=== PATIENT | female | born 1940 | race Caucasian/White ===

== ENCOUNTER 2023-05-15 14:19 | Observation (INO) | payer MEDICARE, SELFPAY ==
[2023-05-15] VITALS (10 sets, daily range): BP systolic 119–131; BP diastolic 43–63; PULSE 60–72; RESP 16–23; TEMP 35.8–36.3; O2SAT 97–100
--- NOTE | ~2023-05-15 | XR_ITS ---
EXAMINATION: XR chest 1V 05/15/2023 14:57 INDICATION: Hallucinations. PROCEDURE: AP view of the chest COMPARISON: No prior studies for comparison. FINDINGS: The lungs are clear. The cardiomediastinal silhouette is within normal limits. There are no pleural effusions. There is no pneumothorax suspected. IMPRESSION: 1: NO ACUTE CARDIOPULMONARY DISEASE. Reviewed, dictated and finalized at location L.
--- NOTE | ~2023-05-15 | CT_ITS ---
EXAMINATION: CT brain wo con DATE: 05/15/2023 14:48 INDICATION: Leaning to the right TECHNIQUE: Computed tomography (CT) of the head was performed without intravenous contrast. Sagittal and coronal reconstructions were performed. The mA was adjusted according to patient size. Iterative reconstruction technique was employed. The dose-length product was 605.33 mGy-cm. COMPARISON: None FINDINGS: No acute intracranial hemorrhage, acute infarction or abnormal extra axial fluid collection. There is mild scattered white matter hypoattenuation consistent with chronic small vessel ischemic disease. S ymmetric prominence of the sulci consistent with mild age-appropriate diffuse cerebral volume loss. Ventricles are normal and symmetric. No mass/mass effect. Changes of a left-sided and likely also rig ht-sided intraocular lens replacement. The orbits, paranasal sinuses and mastoid air cells are normal . IMPRESSION: 1. No acute intracranial process. 2. Age-related changes including mild diffuse volume loss and mild scattered white matter hypoattenua tion consistent with chronic small vessel ischemic disease. Reviewed, dictated and finalized at location A. IMPRESSION: 1. No acute intracranial process. 2. Age-related changes including mild diffuse volume loss and mild scattered wh ite matter hypoattenuation consistent with chronic small vessel ischemic diseas e.
--- NOTE | ~2023-05-15 | MR_ITS ---
EXAMINATION: MR brain/brain stem wo/w con DATE: 05/16/2023 13:04 INDICATION: Gait disturbance. Confusion. TECHNIQUE: Magnetic resonance imaging (MRI) of the brain and brainstem was performed without and with 15 mL MultiHance intravenous contrast. COMPARISON: Head CT 05/15/2023 FINDINGS: There are scattered areas of nonspecific increased T2-weighted signal intensity in the cere bral white matter, which is within normal limits for the patient's age. There is no intracranial hemo rrhage, acute infarction, or abnormal intracranial mass lesion. The ventricles are normal in size. Th e mastoid air cells are normal. There are mucous retention cysts in the maxillary sinuses. There are likely changes of ocular lens replacement surgeries. IMPRESSION: 1. Normal aging brain. Reviewed, dictated and finalized at location A. IMPRESSION: 1. Normal aging brain.
--- NOTE | 2023-05-15 14:33 | ECG_ITS ---
Measurements Intervals [place] Rate: 61 P: 42 VA: 174 QRS: -5 QRSD: 98 T: 0 QT: 404 QTc: 408 Interpretive Statements SINUS RHYTHM VOLTAGE CRITERIA FOR LVH [MEETS CRITERIA IN ONE OF: R(aVL), S(V1), R(V5), R(V5/V6)+S(V1)] NO PREVIOUS ECG AVAILABLE FOR COMPARISON Electronically Signed On 05-16-2023 11:34:59 CDT by Washington Echevarria M.D.
[2023-05-15 14:53] LABS: Basophils Percent Auto 0.5 % (0.2-1.2); Eosinophils Absolute Auto 0.1 K/mm3 (0-0.3); Eosinophils Percent Auto 1.3 % (0-4.4); Hematocrit 33.3 % (37.0-47.0); Hemoglobin 10.9 g/dL (12.0-15.0); Immature Granulocyte Absolute 0.02 K/mm3 (0.00-0.031); Immature Granulocyte Percent A 0.2 % (0-0.5); Lymphocytes Absolute Auto 1.05 K/mm3 (0.9-3.2); Lymphocytes Percent Auto 12.7 % (18.3-44.2); Mean Corpuscular HGB Conc 32.7 g/dl (32-36); Mean Corpuscular Hemoglobin 29.8 pg (26-34); Mean Platelet Volume 10.2 fl (7.4-10.4); Monocytes Absolute Auto 0.5 K/mm3 (0.1-0.6); Monocytes Percent Auto 6.3 % (2.6-8.5); Neutrophils Absolute Auto 6.5 K/mm3 (1.3-6.7); Platelet Count Result 266 k/mm3 (150-375); Red Blood Count 3.66 M/mm3 (4.2-5.4); Red Cell Distribution Width 13.2 % (11.5-14.5); White Blood Count 8.3 K/mm3 (4.5-10.0)
[2023-05-15 15:03] LABS: INR 1.1; Prothrombin Time 14.6 Seconds (11.1-14.7)
[2023-05-15 15:04] LABS: Partial Thromboplastin Time 29.3 SECONDS (22.3-36.8)
[2023-05-15 15:08] LABS: Alanine Aminotransferase 30 U/L (6-35); Albumin Level 3.9 g/dL (3.5-5.1); Alkaline Phosphatase 55 U/L (38-126); Anion Gap 9 mmol/L (8-16); Aspartate Amino Transferase 75 U/L (14-36); Bilirubin,Total 0.8 mg/dL (0.2-1.3); Blood Urea Nitrogen 40 mg/dL (7-17); Calcium 9.3 mg/dL (8.4-10.2); Carbon Dioxide 32 mmol/L (22-30); Chloride 97 mmol/L (98-107); Estimated CRCL calculation 29 ml/min; Estimated Glomerular Filt Rate 36; Glucose 82 mg/dL (65-110); Potassium 2.7 mmol/L (3.4-5.0); Sodium 138 mmol/L (137-145)
[2023-05-15 15:15] LABS: Troponin I 0.022 ng/mL (0.000-0.034)
--- NOTE | 2023-05-15 18:15 | ED.NEUROSD ---
HPI - Neuro Symptoms/Deficit General Chief Complaint: Neuro Symptoms/Deficit <Tran Torres PA-C - Last Filed: 05/15/23 19:19> Stated Complaint: concerned for stroke <Tran Torres PA-C - Last Filed: 05/15/23 19:19> Time Seen by Provider: 05/15/23 18:01 <Tran Torres PA-C - Last Filed: 05/15/23 19:19> Source: patient and family <Tran Torres PA-C - Last Filed: 05/15/23 19:19> Mode of arrival: wheelchair <Tran Torres PA-C - Last Filed: 05/15/23 19:19> Limitations: dementia <Tran Torres PA-C - Last Filed: 05/15/23 19:19> History of Present Illness HPI Narrative: This is a 82 year old female that presents to the ER for increased confusion. Noted over the last couple of days. Memory care facility reports she has been drooling and leaning to the right. No recent falls or injuries. Patient currently has no complaints. <Tran Torres PA-C - Last Filed: 05/15/23 19:19> Related Data Home Medications: Home Medications Medication Instructions Recorded Confirmed aspirin 81 mg tablet,delayed 81 mg PO DAILY 10/17/22 05/15/23 release (Adult Low Dose Aspirin) azilsartan medoxomil 40 1 tablet PO DAILY 10/17/22 05/15/23 mg-chlorthalidone 25 mg tablet (Edarbyclor) carvedilol 12.5 mg tablet 12.5 mg PO .COMPLEX 10/17/22 05/15/23 cinnamon bark 500 mg capsule 500 mg PO DAILY 10/17/22 05/15/23 cyclobenzaprine 5 mg tablet 5 mg PO QHS PRN Spasms 10/17/22 05/15/23 fenofibrate nanocrystallized 145 145 mg PO DAILY 10/17/22 05/15/23 mg tablet metformin 500 mg tablet 1,000 mg PO DAILY 10/17/22 05/15/23 uzaqlsumhuma-bwtzstfd-zottup tablet 1 tablet PO DAILY 10/17/22 05/15/23 nifedipine 30 mg tablet,extended 30 mg PO DAILY 10/17/22 05/15/23 release omega 1-yjm-roa-fish oil 500 mg 1 cap PO DAILY 10/17/22 05/15/23 (200mg-300mg)-1,000 mg capsule pravastatin 20 mg tablet 20 mg PO DAILY 10/17/22 05/15/23 calcium polycarbophil 625 mg 625 mg PO DAILY 05/15/23 05/15/23 tablet (Fiber-Lax) carvedilol 25 mg tablet 25 mg PO BID 05/15/23 05/15/23 ferrous sulfate 325 mg (65 mg 325 mg PO DAILY 05/15/23 05/15/23 iron) tablet (FeroSul) furosemide 20 mg tablet 20 mg PO DAILY 05/15/23 05/15/23 <Tran Torres PA-C - Last Filed: 05/15/23 19:19> Allergies/Adverse Reactions: Allergies Allergy/AdvReac Type Severity Reaction Status Date / Time Sulfa (Sulfonamide Allergy Mild Nausea Verified 10/16/22 10:30 Antibiotics) <Tran Torres PA-C - Last Filed: 05/15/23 19:19> Review of Systems Review of Systems: ROS unobtainable: Yes unobtainable due to medical condition <Tran Torres PA-C - Last Filed: 05/15/23 19:19> [facility] Past Medical History Medical History: Medical History (Updated 05/15/23 @ 19:19 by Tran Torres PA-C) Chronic kidney disease, stage 3b History of dementia History of hyperlipidemia <Tran Torres PA-C - Last Filed: 05/15/23 19:19> Social History Social History: Social History (Updated 10/16/22 @ 13:39 by Tony Wilson MD) Smoking status: Never smoker Alcohol intake: never Substance use: never Substance use type: does not use Lack of Transportation: No Lack of Food: Never True Current Housing: I Have Housing Concerned About Future Housing: No Difficulty Paying Gas/Electric Bills: No Difficulty Paying for Meds: No Currently Unemployed: No Education: Bachelor's Degree Difficulty w/ Childcare or Family Care: No Gender identity (if verbalized by the patient): Female Spiritual care concerns: No <Tran Torres PA-C - Last Filed: 05/15/23 19:19> Exam Narrative: GENERAL: Elderly, well-nourished, and in no acute distress. HEAD: Normocephalic, atraumatic. EYES: PERRLA and EOMI. ENT: Nares clear, no rhinorrhea or epistaxis. Mucous membranes moist. Oropharynx without tonsillar hypertrophy exudate or other lesions. Bilateral TMs pearly gutierrez non-bulging NECK: Supple. No adenopat
[2023-05-15 18:24] LABS: Glucose Point of Care 133 mg/dl (65-105)
[2023-05-15 18:38] LABS: Magnesium 1.8 mg/dL (1.6-2.3)
[2023-05-15] MEDS: POTASSIUM CHLORIDE INJ 40 MEQ in SODIUM CHLORIDE 0.9% IV 500 ML 130 MEQ IVPB (18:51)
[2023-05-15 18:59] LABS: Appearance Urine Clear (Clear); Bacteria Urine None Seen /hpf; Bilirubin Urine Negative (Negative); Blood Urine Negative (Negative); Color Urine Yellow (Yellow); Glucose Urine UA Negative (Negative); Ketones Urine Negative (Negative); Leukocyte Esterase Ur 2+ LEU/UL (Negative); Nitrate Urine Negative (Negative); Protein Urine Negative (Negative); RBC Urine 0-2 /hpf (0-2); Specific Grav Ur 1.011 (1.001-1.035); Squamous Epithelial Cell Urine None seen /hpf (Few); Urobilinogen Urine 0.2 mg/dL (<2.0); pH Urine 5.5 (5.0-9.0)
[2023-05-15 19:12] LABS: Add Urine Microscopic? YES
--- NOTE | 2023-05-15 20:05 | PM.IMHP ---
H&P: HPI History of Present Illness Date/Time: 05/15/23 20:05 Chief Complaint: Gait disturbance Narrative: This is an 82-year-old female with past medical history significant for hypertension, congestive heart failure, type diabetes mellitus, dyslipidemia, chronic kidney disease, patient resides at assisted living facility. Patient was brought to the emergency room for evaluation after she was noted to be Yamini to the right side, facial asymmetry and drooling and confusion and sundowning. Patient was able to give some history. But most of the history was obtained from family member who was at bedside. Preliminary workup was significant for urinalysis with WBCs present. Patient has been started on antibiotics. At the time of my visit patient had seemed to resolved some of her deficit. Patient has been admitted for further evaluation management and treatment. EXAMINATION: CT brain wo con DATE: 05/15/2023 14:48 INDICATION: Leaning to the right TECHNIQUE: Computed tomography (CT) of the head was performed without intravenous contrast. Sagittal and coronal reconstructions were performed. The mA was adjusted according to patient size. Iterative reconstruction technique was employed. The dose-length product was 605.33 mGy-cm. COMPARISON: None FINDINGS: No acute intracranial hemorrhage, acute infarction or abnormal extra axial fluid collection. There is mild scattered white matter hypoattenuation consistent with chronic small vessel ischemic disease. Symmetric prominence of the sulci consistent with mild age-appropriate diffuse cerebral volume loss.? Ventricles are normal and symmetric. No mass/mass effect. Changes of a left-sided and likely also right-sided intraocular lens replacement. The orbits, paranasal sinuses and mastoid air cells are normal. IMPRESSION: 1. No acute intracranial process. 2. Age-related changes including mild diffuse volume loss and mild scattered white matter hypoattenuation consistent with chronic small vessel ischemic disease. EXAMINATION: XR chest 1V 05/15/2023 14:57 INDICATION: Hallucinations. PROCEDURE:? AP view of the chest COMPARISON: No prior studies for comparison. FINDINGS: The lungs are clear.? The cardiomediastinal silhouette is within normal limits.? There are no pleural effusions.? There is no pneumothorax suspected.? IMPRESSION: 1:? NO ACUTE CARDIOPULMONARY DISEASE. Review of Systems Review of Systems: ROS unobtainable: Yes unobtainable due to mental status PMFSH Past Medical History Medical History (Updated 05/16/23 @ 03:00 by Estrella Loja MD) Chronic kidney disease, stage 3b History of dementia History of hyperlipidemia Social History Social History (Updated 10/16/22 @ 13:39 by Tony Wilson MD) Smoking status: Never smoker Alcohol intake: never Substance use: never Substance use type: does not use Lack of Transportation: No Lack of Food: Never True Current Housing: I Have Housing Concerned About Future Housing: No Difficulty Paying Gas/Electric Bills: No Difficulty Paying for Meds: No Currently Unemployed: No Education: Bachelor's Degree Difficulty w/ Childcare or Family Care: No Gender identity (if verbalized by the patient): Female Spiritual care concerns: No Meds Home Medications and Allergies Home Medications Medication Instructions Recorded Confirmed Type aspirin 81 mg tablet,delayed 81 mg PO DAILY 10/17/22 05/15/23 History release (Adult Low Dose Aspirin) azilsartan medoxomil 40 1 tablet PO DAILY 10/17/22 05/15/23 History mg-chlorthalidone 25 mg tablet (Edarbyclor) carvedilol 12.5 mg tablet 12.5 mg PO .COMPLEX 10/17/22 05/15/23 History cinnamon bark 500 mg capsule 500 mg PO DAILY 10/17/22 05/15/23 History cyclobenzaprine 5 mg tablet 5 mg PO QHS PRN Spasms 10/17/22 05/15/23 History fenofibrate nanocrystallized 145 145 mg PO DAILY 10/17/22 05/15/23 History mg tablet metformin 500 mg ta
--- NOTE | 2023-05-15 20:10 | ADMGEN ---
This patient, Brittani Garrett, was admitted to [facility] Surg Room 332-02. Patient/family oriented to hospital policies and general routines including ID bracelet, bed and alarms, visiting hours, pain management, procedures, bathroom and other care routines, personal items, smoking policy, room service/diet, and visiting hours. Information on how to activate the Rapid Response Team has been discussed. Patient/Family are encouraged to report perceived risks to care and to ask questions if they do not understand what they are told or what they should do.
[2023-05-16] VITALS (11 sets, daily range): BP systolic 110–124; BP diastolic 43–86; PULSE 59–70; RESP 16–19; TEMP 35.8–36.6; O2SAT 96–98
[2023-05-16 06:49] LABS: Anion Gap 4 mmol/L (8-16); Blood Urea Nitrogen 33 mg/dL (7-17); Calcium 8.7 mg/dL (8.4-10.2); Carbon Dioxide 33 mmol/L (22-30); Chloride 102 mmol/L (98-107); Estimated CRCL calculation 32 ml/min; Estimated Glomerular Filt Rate 43; Glucose 88 mg/dL (65-110); Sodium 139 mmol/L (137-145)
[2023-05-16] MEDS: NIFEdipine 30 MG TAB.ER.24 PO (08:30)
[2023-05-16] MEDS: OMEGA 3 POLYUNSAT FATTY ACIDS 1 GM CAP PO (08:30)
[2023-05-16] MEDS: FERROUS SULFATE 325 MG TABLET DR BY MOUTH (08:30)
[2023-05-16] MEDS: carvediloL 25 MG TABLET PO ×2 (08:30→20:48)
[2023-05-16] MEDS: PRAVASTATIN SODIUM 20 MG TABLET PO (08:30)
[2023-05-16] MEDS: OPTI-GEN TAB 1 TABLET PO (08:30)
[2023-05-16] MEDS: FENOFIBRATE NANOCRYSTALLIZED 145 MG TABLET PO (08:31)
[2023-05-16] MEDS: ASPIRIN 81 MG ENTERIC TABLET PO (08:31)
[2023-05-16] MEDS: calcium polycarbophiL 625 MG TABLET PO (08:31)
[2023-05-16] MEDS: POTASSIUM CHLORIDE 20 MEQ PACKET (FOR LIQUID) 40 MEQ PO (09:16)
--- NOTE | 2023-05-16 11:49 | WPDNEURCNPN ---
Assessment and Plan Assessment and plan (1) Chronic kidney disease, stage 3b: Code(s): N18.32 - Chronic kidney disease, stage 3b Status: Acute (2) Altered mental status: Qualifiers: Altered mental status type: unspecified Qualified Code(s): R41.82 - Altered mental status, unspecified Code(s): R41.82 - Altered mental status, unspecified Status: Acute Plan 1 ongoing dementia with recent change in the mental status, could be related to the chronic renal disease at this stage exam is unchanged from the previous evaluations once the dialysis is done will obtain the EEG if necessary Consult date: 05/16/23 HPI: Brittani Garrett is a 82 year old female Admitted to the hospital through the emergency room for the complaints of increasing confusion of more than 48 hours duration in addition to the complaints of leaning to the right side but with no history of falls, has ongoing history of taking aspirin 81 mg daily, carvedilol 12.5 mg daily cyclobenzaprine 5 mg HS on p.r.n. basis metformin 1000 mg daily nifedipine 30 mg daily pravastatin 20 mg daily, noted Maria Elena allergic to sulfa, carries the diagnosis of chronic renal disease stage IIIB, dementia, never smoked never alcohol intake , initial exam in the emergency room was nonfocal, vital signs were normal, considering the increasing confusion CT scan of the head was done was negative for the bleed, EKG without atrial fibrillation general blood workup was without leukocytosis but potassium was 2.7 PMFSH Past Medical History Medical History (Updated 05/16/23 @ 03:00 by Estrella Loja MD) Chronic kidney disease, stage 3b History of dementia History of hyperlipidemia Social History Social History (Updated 10/16/22 @ 13:39 by Tony Wilson MD) Smoking status: Never smoker Alcohol intake: never Substance use: never Substance use type: does not use Lack of Transportation: No Lack of Food: Never True Current Housing: I Have Housing Concerned About Future Housing: No Difficulty Paying Gas/Electric Bills: No Difficulty Paying for Meds: No Currently Unemployed: No Education: Bachelor's Degree Difficulty w/ Childcare or Family Care: No Gender identity (if verbalized by the patient): Female Spiritual care concerns: No Meds Home Medications and Allergies Home Medications Medication Instructions Recorded Confirmed Type aspirin 81 mg tablet,delayed 81 mg PO DAILY 10/17/22 05/15/23 History release (Adult Low Dose Aspirin) azilsartan medoxomil 40 1 tablet PO DAILY 10/17/22 05/15/23 History mg-chlorthalidone 25 mg tablet (Edarbyclor) carvedilol 12.5 mg tablet 12.5 mg PO .COMPLEX 10/17/22 05/15/23 History cinnamon bark 500 mg capsule 500 mg PO DAILY 10/17/22 05/15/23 History cyclobenzaprine 5 mg tablet 5 mg PO QHS PRN Spasms 10/17/22 05/15/23 History fenofibrate nanocrystallized 145 145 mg PO DAILY 10/17/22 05/15/23 History mg tablet metformin 500 mg tablet 1,000 mg PO DAILY 10/17/22 05/15/23 History ngkogsldyeqq-pzuuwyco-qhtztw tablet 1 tablet PO DAILY 10/17/22 05/15/23 History nifedipine 30 mg tablet,extended 30 mg PO DAILY 10/17/22 05/15/23 History release omega 1-tpb-yzg-fish oil 500 mg 1 cap PO DAILY 10/17/22 05/15/23 History (200mg-300mg)-1,000 mg capsule pravastatin 20 mg tablet 20 mg PO DAILY 10/17/22 05/15/23 History calcium polycarbophil 625 mg 625 mg PO DAILY 05/15/23 05/15/23 History tablet (Fiber-Lax) carvedilol 25 mg tablet 25 mg PO BID 05/15/23 05/15/23 History ferrous sulfate 325 mg (65 mg 325 mg PO DAILY 05/15/23 05/15/23 History iron) tablet (FeroSul) furosemide 20 mg tablet 20 mg PO DAILY 05/15/23 05/15/23 History Allergies Allergy/AdvReac Type Severity Reaction Status Date / Time Sulfa (Sulfonamide Allergy Mild Nausea Verified 10/16/22 10:30 Antibiotics) Vital Signs Vital Signs - 24 hr 05/15/23 14:29 05/15/23 17:51 05/15/23 17:52 Temperature 36.3 C L Pu
--- NOTE | 2023-05-16 12:13 | PM.IMPN ---
Progress Note: A&P Assessment and Plan (1) UTI (urinary tract infection): Code(s): N39.0 - Urinary tract infection, site not specified Status: Acute (2) Altered mental status: Qualifiers: Altered mental status type: unspecified Qualified Code(s): R41.82 - Altered mental status, unspecified Code(s): R41.82 - Altered mental status, unspecified Status: Acute (3) Chronic kidney disease, stage 3b: Code(s): N18.32 - Chronic kidney disease, stage 3b Status: Acute (4) Chronic arterial ischemic stroke: Code(s): I69.30 - Unspecified sequelae of cerebral infarction Status: Acute Subjective Date/time seen: 05/16/23 12:13 Interval history: No new issues Exam Narrative: Patient laying in bed Const: General: comfortable, no acute distress, well developed, alert, awake, confusion and average body habitus Nutritional Appearance: average body habitus Orientation/consciousness: oriented to person, oriented to place and confusion HENMT: Head: normal to inspection, normocephalic and atraumatic Ears: hearing grossly normal bilaterally Face/Nose/Sinus: normal facial exam Face and sinus: normal facial exam Eyes: General: appearance normal, both eyes and all related structures Pupils: Equal, round and reactive pupils present EOM: EOMs intact bilaterally Neck: Neck: full ROM, no lymphadenopathy and no JVD Thyroid: thyroid normal Lymphatic: no lymphadenopathy noted Resp: Effort & Inspection: normal respiratory effort and able to speak in complete sentences Auscultation: clear to auscultation bilaterally Cardio: Jugular venous distension: no JVD Rate: regular rate Rhythm: regular rhythm Heart sounds: S1 normal heart sound present and S2 normal heart sound present : General: Yes deferred Skin: Rashes: no rashes Wounds: no wounds Neuro: General: oriented to person, oriented to place, CN's II-XI intact bilaterally, confusion and Unable to assess gait Cranial nerves: Yes CN's II-XII intact bilaterally and Yes Equal, round and reactive pupils present Cognition (Neuro): abnormal cognition Speech: normal speech Gait exam (Neuro): Unable to assess gait Motor exam (neuro): 5/5 motor strength present throughout Extrem: General: normal to inspection, full ROM, no joint enlargement and no pedal edema Objective Data Vital Signs Vital Signs: Vital Signs - 24 hr 05/15/23 14:29 08/22/23 17:51 05/15/23 17:52 Temperature 97.4 F L Pulse Rate 72 67 66 Respiratory Rate 20 19 19 Blood Pressure 119/63 128/43 L Pulse Oximetry 98 98 99 Oxygen Delivery Room Air 05/15/23 18:00 05/15/23 18:01 05/15/23 18:28 Temperature Pulse Rate 65 64 61 Respiratory Rate 23 H 21 H 17 Blood Pressure 123/52 L 123/52 L Pulse Oximetry 100 97 99 Oxygen Delivery 05/15/23 18:30 05/15/23 18:31 05/15/23 18:54 Temperature Pulse Rate 62 61 60 Respiratory Rate 19 20 Blood Pressure 131/56 L Pulse Oximetry 99 99 Oxygen Delivery 05/15/23 20:45 05/16/23 04:00 05/16/23 06:00 Temperature 96.4 F L 96.5 F L Pulse Rate 65 59 L 62 Respiratory Rate 16 16 Blood Pressure 129/49 L 119/86 Pulse Oximetry 99 97 Oxygen Delivery 05/16/23 08:30 Temperature Pulse Rate 68 Respiratory Rate Blood Pressure Pulse Oximetry Oxygen Delivery Intake/Output Intake/Output: Intake & Output 05/13/23 05/14/23 05/15/23 05/16/23 23:59 23:59 23:59 23:59 Intake Total 50 418 Balance 50 418 Meds/Results Medications: Active Medications Generic Name Dose Route Start Last Admin Trade Name Freq PRN Reason Stop Dose Admin Aspirin 81 mg 05/16/23 09:00 05/16/23 08:31 Aspirin 81 Mg Enteric Tablet PO 81 mg DAILY MENG Administration Calcium Polycarbophil 625 mg 05/16/23 09:00 05/16/23 08:31 Calcium Polycarbophil 625 Mg Tablet PO 625 mg DAILY MENG Administration Carvedilol 25 mg 05/16/23 09:00 05/16/23 08:30 Carvedilol 25 Mg Table
[2023-05-17] VITALS (9 sets, daily range): BP systolic 117–129; BP diastolic 41–59; PULSE 56–71; RESP 16–20; TEMP 36.1–36.3; O2SAT 95–97
[2023-05-17 06:30] LABS: Basophils Percent Auto 0.8 % (0.2-1.2); Eosinophils Absolute Auto 0.2 K/mm3 (0-0.3); Eosinophils Percent Auto 4.2 % (0-4.4); Hematocrit 34.2 % (37.0-47.0); Hemoglobin 10.8 g/dL (12.0-15.0); Immature Granulocyte Absolute 0.02 K/mm3 (0.00-0.031); Immature Granulocyte Percent A 0.4 % (0-0.5); Lymphocytes Absolute Auto 1.07 K/mm3 (0.9-3.2); Lymphocytes Percent Auto 20.6 % (18.3-44.2); Mean Corpuscular HGB Conc 31.6 g/dl (32-36); Mean Corpuscular Hemoglobin 29.6 pg (26-34); Mean Corpuscular Volume 93.7 fl (80-100); Mean Platelet Volume 10.6 fl (7.4-10.4); Monocytes Absolute Auto 0.4 K/mm3 (0.1-0.6); Monocytes Percent Auto 7.3 % (2.6-8.5); Neutrophils Absolute Auto 3.5 K/mm3 (1.3-6.7); Neutrophils Percent Auto 66.7 % (45.5-73.1); Platelet Count Result 224 k/mm3 (150-375); Red Blood Count 3.65 M/mm3 (4.2-5.4); Red Cell Distribution Width 13.5 % (11.5-14.5); White Blood Count 5.2 K/mm3 (4.5-10.0)
[2023-05-17 06:42] LABS: Anion Gap 1 mmol/L (8-16); Blood Urea Nitrogen 25 mg/dL (7-17); Calcium 8.8 mg/dL (8.4-10.2); Carbon Dioxide 30 mmol/L (22-30); Chloride 102 mmol/L (98-107); Estimated CRCL calculation 34 ml/min; Estimated Glomerular Filt Rate 48; Glucose 99 mg/dL (65-110); Potassium 3.6 mmol/L (3.4-5.0); Sodium 133 mmol/L (137-145)
[2023-05-17] MEDS: ASPIRIN 81 MG ENTERIC TABLET PO (09:31)
[2023-05-17] MEDS: carvediloL 25 MG TABLET PO ×2 (09:31→22:03)
[2023-05-17] MEDS: PRAVASTATIN SODIUM 20 MG TABLET PO (09:31)
[2023-05-17] MEDS: FENOFIBRATE NANOCRYSTALLIZED 145 MG TABLET PO (09:31)
[2023-05-17] MEDS: calcium polycarbophiL 625 MG TABLET PO (09:31)
[2023-05-17] MEDS: OMEGA 3 POLYUNSAT FATTY ACIDS 1 GM CAP PO (09:31)
[2023-05-17] MEDS: CEFDINIR 300 MG CAPSULE PO ×2 (09:31→22:03)
[2023-05-17] MEDS: NIFEdipine 30 MG TAB.ER.24 PO (09:31)
[2023-05-17] MEDS: OPTI-GEN TAB 1 TABLET PO (09:31)
[2023-05-17] MEDS: POTASSIUM CHLORIDE 20 MEQ PACKET (FOR LIQUID) 40 MEQ PO (09:34)
--- NOTE | 2023-05-17 11:16 | PM.IMPN ---
Progress Note: A&P Assessment and Plan (1) UTI (urinary tract infection): Code(s): N39.0 - Urinary tract infection, site not specified Status: Acute Assessment and Plan: Admit to regular medical floor Started on antibiotics Await cultures Supportive care Continue to monitor (2) Altered mental status: Qualifiers: Altered mental status type: unspecified Qualified Code(s): R41.82 - Altered mental status, unspecified Code(s): R41.82 - Altered mental status, unspecified Status: Acute Assessment and Plan: Likely secondary to 1. MRI of the brain in the morning (3) Chronic kidney disease, stage 3b: Code(s): N18.32 - Chronic kidney disease, stage 3b Status: Acute Assessment and Plan: Creatinine is 1.4 No prior values for comparison Will hold NSAID and diuretics Daily BMP Continue to monitor (4) Chronic arterial ischemic stroke: Code(s): I69.30 - Unspecified sequelae of cerebral infarction Status: Acute Assessment and Plan: Unchanged Subjective Date/time seen: 05/17/23 11:16 Interval history: No complaints Exam Narrative: Patient laying in bed Const: General: comfortable, no acute distress, well developed, alert, awake, confusion and average body habitus Nutritional Appearance: average body habitus Orientation/consciousness: oriented to person, oriented to place and confusion HENMT: Head: normal to inspection, normocephalic and atraumatic Ears: hearing grossly normal bilaterally Face/Nose/Sinus: normal facial exam Face and sinus: normal facial exam Eyes: General: appearance normal, both eyes and all related structures Pupils: Equal, round and reactive pupils present EOM: EOMs intact bilaterally Neck: Neck: full ROM, no lymphadenopathy and no JVD Thyroid: thyroid normal Lymphatic: no lymphadenopathy noted Resp: Effort & Inspection: normal respiratory effort and able to speak in complete sentences Auscultation: clear to auscultation bilaterally Cardio: Jugular venous distension: no JVD Rate: regular rate Rhythm: regular rhythm Heart sounds: S1 normal heart sound present and S2 normal heart sound present : General: Yes deferred Skin: Rashes: no rashes Wounds: no wounds Neuro: General: oriented to person, oriented to place, CN's II-XI intact bilaterally, confusion and Unable to assess gait Cranial nerves: Yes CN's II-XII intact bilaterally and Yes Equal, round and reactive pupils present Cognition (Neuro): abnormal cognition Speech: normal speech Gait exam (Neuro): Unable to assess gait Motor exam (neuro): 5/5 motor strength present throughout Extrem: General: normal to inspection, full ROM, no joint enlargement and no pedal edema Objective Data Vital Signs Vital Signs: Vital Signs - 24 hr 05/16/23 14:00 05/16/23 12:00 05/16/23 16:00 Temperature 96.9 F L Pulse Rate 66 67 62 Respiratory Rate 19 Blood Pressure 110/43 L Pulse Oximetry 96 05/16/23 20:48 05/16/23 22:43 05/16/23 22:00 Temperature 97.8 F Pulse Rate 63 64 65 Respiratory Rate 18 Blood Pressure 124/55 L Pulse Oximetry 98 05/16/23 20:00 05/17/23 00:00 05/17/23 04:00 Temperature Pulse Rate 62 62 56 L Respiratory Rate Blood Pressure Pulse Oximetry 05/17/23 06:00 Temperature 97.4 F L Pulse Rate 71 Respiratory Rate 20 Blood Pressure 129/59 L Pulse Oximetry 95 Intake/Output Intake/Output: Intake & Output 05/14/23 05/15/23 05/16/23 05/17/23 23:59 23:59 23:59 23:59 Intake Total 50 880 118 Balance 50 880 118 Meds/Results Medications: Active Medications Generic Name Dose Route Start Last Admin Trade Name Freq PRN Reason Stop Dose Admin Aspirin 81 mg 05/16/23 09:00 05/17/23 09:31 Aspirin 81 Mg Enteric Tablet PO 81 mg DAILY MENG Administration Calcium Polycarbophil 625 mg 05/16/23 09:00 05/17/23 09:31 Calcium Polycarbophil 625 Mg Tablet PO 625 mg DAILY
[2023-05-17] MEDS: FERROUS SULFATE 325 MG TABLET DR BY MOUTH (12:35)
--- NOTE | 2023-05-17 17:09 | PM.DS ---
DS: Admitting Diagnosis Discharge Date 05/17/23 Admitting Diagnosis uti DS: Discharge Diagnosis Discharge Diagnosis (1) UTI (urinary tract infection): Code(s): N39.0 - Urinary tract infection, site not specified Status: Acute Assessment and Plan: Admit to regular medical floor Started on antibiotics Await cultures Supportive care Continue to monitor (2) Altered mental status: Qualifiers: Altered mental status type: unspecified Qualified Code(s): R41.82 - Altered mental status, unspecified Code(s): R41.82 - Altered mental status, unspecified Status: Acute Assessment and Plan: Likely secondary to 1. MRI of the brain in the morning (3) Chronic kidney disease, stage 3b: Code(s): N18.32 - Chronic kidney disease, stage 3b Status: Acute Assessment and Plan: Creatinine is 1.4 No prior values for comparison Will hold NSAID and diuretics Daily BMP Continue to monitor (4) Chronic arterial ischemic stroke: Code(s): I69.30 - Unspecified sequelae of cerebral infarction Status: Acute Assessment and Plan: Unchanged DS: Summary Hospital Course Hospital Course: admitted for ams, likely 2/2 uti - will be dc on omnicef back to baseline, ok for dc Time Spent with Patient Time attestation: Total time spent providing and/or coordinating discharge services: Exam Narrative: Patient laying in bed Const: General: comfortable, no acute distress, well developed, alert, awake, confusion and average body habitus Nutritional Appearance: average body habitus Orientation/consciousness: oriented to person, oriented to place and confusion HENMT: Head: normal to inspection, normocephalic and atraumatic Ears: hearing grossly normal bilaterally Face/Nose/Sinus: normal facial exam Face and sinus: normal facial exam Eyes: General: appearance normal, both eyes and all related structures Pupils: Equal, round and reactive pupils present EOM: EOMs intact bilaterally Neck: Neck: full ROM, no lymphadenopathy and no JVD Thyroid: thyroid normal Lymphatic: no lymphadenopathy noted Resp: Effort & Inspection: normal respiratory effort and able to speak in complete sentences Auscultation: clear to auscultation bilaterally Cardio: Jugular venous distension: no JVD Rate: regular rate Rhythm: regular rhythm Heart sounds: S1 normal heart sound present and S2 normal heart sound present : General: Yes deferred Skin: Rashes: no rashes Wounds: no wounds Neuro: General: oriented to person, oriented to place, CN's II-XI intact bilaterally, confusion and Unable to assess gait Cranial nerves: Yes CN's II-XII intact bilaterally and Yes Equal, round and reactive pupils present Cognition (Neuro): abnormal cognition Speech: normal speech Gait exam (Neuro): Unable to assess gait Motor exam (neuro): 5/5 motor strength present throughout Extrem: General: normal to inspection, full ROM, no joint enlargement and no pedal edema DS: Data Data Completed and Pending Labs on day of discharge: Labs from last 24 hours 05/17/23 06:08 WBC 5.2 RBC 3.65 L Hgb 10.8 L Hct 34.2 L MCV 93.7 MCH 29.6 MCHC 31.6 L RDW 13.5 Plt Count 224 MPV 10.6 H Immature Gran % (Auto) 0.4 Neut % (Auto) 66.7 Lymph % (Auto) 20.6 Rabun % (Auto) 7.3 Eos % (Auto) 4.2 Baso % (Auto) 0.8 Lymph # (Auto) 1.07 Rabun # (Auto) 0.4 Eos # (Auto) 0.2 Baso # (Auto) 0.0 Abs Immat Gran (auto) 0.02 Absolute Neuts (auto) 3.5 Absolute Nucleated RBC 0.0 Nucleated RBC % 0.0 Sodium 133 L Potassium 3.6 Chloride 102 Carbon Dioxide 30 Anion Gap 1 L BUN 25 H Creatinine 1.10 H Estim Creat Clear Calc 34 Estimated GFR 48 L Glucose 99 Calcium 8.8 Discharge Plan Discharge Attending physician on discharge: Hayden White Consulting providers: Luis Antonio Ruiz; Tran Torres Discharging Clinician: Hayden White Patient Disposition: Home, Self-
[2023-05-17] MEDS: CYCLOBENZAPRINE HCL 5 MG TABLET PO (22:03)
[2023-05-18 06:00] VITALS: BP 112/53; PULSE 61; RESP 16; TEMP 36.3; O2SAT 93
[2023-05-18 09:00] LABS: Potassium 3.8 mmol/L (3.4-5.0)
[2023-05-18] MEDS: calcium polycarbophiL 625 MG TABLET PO (09:07)
[2023-05-18] MEDS: OPTI-GEN TAB 1 TABLET PO (09:07)
[2023-05-18] MEDS: OMEGA 3 POLYUNSAT FATTY ACIDS 1 GM CAP PO (09:07)
[2023-05-18] MEDS: CEFDINIR 300 MG CAPSULE PO (09:07)
[2023-05-18 09:08] VITALS: PULSE 64
[2023-05-18] MEDS: carvediloL 25 MG TABLET PO (09:08)
[2023-05-18] MEDS: PRAVASTATIN SODIUM 20 MG TABLET PO (09:08)
[2023-05-18] MEDS: ASPIRIN 81 MG ENTERIC TABLET PO (09:08)
[2023-05-18] MEDS: NIFEdipine 30 MG TAB.ER.24 PO (09:08)
[2023-05-18] MEDS: FENOFIBRATE NANOCRYSTALLIZED 145 MG TABLET PO (09:08)
--- NOTE | 2023-05-18 11:35 | PM.DS ---
DS: Admitting Diagnosis Discharge Date May 18, 2023 Admitting Diagnosis Altered mental status, likely related to hypokalemia DS: Discharge Diagnosis Discharge Diagnosis (1) UTI (urinary tract infection): Code(s): N39.0 - Urinary tract infection, site not specified Status: Acute Assessment and Plan: Admit to regular medical floor Started on antibiotics Await cultures Supportive care Continue to monitor (2) Altered mental status: Qualifiers: Altered mental status type: unspecified Qualified Code(s): R41.82 - Altered mental status, unspecified Code(s): R41.82 - Altered mental status, unspecified Status: Acute Assessment and Plan: Likely secondary to 1. MRI of the brain in the morning (3) Chronic kidney disease, stage 3b: Code(s): N18.32 - Chronic kidney disease, stage 3b Status: Acute Assessment and Plan: Creatinine is 1.4 No prior values for comparison Will hold NSAID and diuretics Daily BMP Continue to monitor (4) Chronic arterial ischemic stroke: Code(s): I69.30 - Unspecified sequelae of cerebral infarction Status: Acute Assessment and Plan: Unchanged DS: Summary Hospital Course Hospital Course: Patient is a 82-year-old came with hypokalemia UTI altered mental status. After starting antibiotics and correction of electrolytes she is much improved. She is at her baseline and can be discharged Time Spent with Patient Time attestation: Total time spent providing and/or coordinating discharge services: Exam Narrative: Patient laying in bed Const: General: comfortable, no acute distress, well developed, alert, awake, confusion and average body habitus Nutritional Appearance: average body habitus Orientation/consciousness: oriented to person, oriented to place and confusion HENMT: Head: normal to inspection, normocephalic and atraumatic Ears: hearing grossly normal bilaterally Face/Nose/Sinus: normal facial exam Face and sinus: normal facial exam Eyes: General: appearance normal, both eyes and all related structures Pupils: Equal, round and reactive pupils present EOM: EOMs intact bilaterally Neck: Neck: full ROM, no lymphadenopathy and no JVD Thyroid: thyroid normal Lymphatic: no lymphadenopathy noted Resp: Effort & Inspection: normal respiratory effort and able to speak in complete sentences Auscultation: clear to auscultation bilaterally Cardio: Jugular venous distension: no JVD Rate: regular rate Rhythm: regular rhythm Heart sounds: S1 normal heart sound present and S2 normal heart sound present : General: Yes deferred Skin: Rashes: no rashes Wounds: no wounds Neuro: General: oriented to person, oriented to place, CN's II-XI intact bilaterally, confusion and Unable to assess gait Cranial nerves: Yes CN's II-XII intact bilaterally and Yes Equal, round and reactive pupils present Cognition (Neuro): abnormal cognition Speech: normal speech Gait exam (Neuro): Unable to assess gait Motor exam (neuro): 5/5 motor strength present throughout Extrem: General: normal to inspection, full ROM, no joint enlargement and no pedal edema DS: Data Data Completed and Pending Labs on day of discharge: Labs from last 24 hours 05/18/23 08:31 Potassium 3.8 Discharge Plan Discharge Attending physician on discharge: Hayden White Consulting providers: Luis Antonio Ruiz; Tran Torres Discharging Clinician: Hayden White Patient Disposition: Home, Self-Care Activity: as tolerated Diet: as tolerated Patient Instructions: Antibiotic Form, Hypokalemia (DC), Altered Mental Status (GEN) Stand Alone Forms: General Discharge Information Follow-up/Referrals: Melissa,Sam Gong MD [Primary Care Provider] - Discharge Medications: New cefdinir 300 mg capsule 300 mg PO Q12H Qty: 10 0RF Continued aspirin [Adult Low Dose Aspirin] 81 mg tablet,delayed release (/E
[2023-05-18] MEDS: FERROUS SULFATE 325 MG TABLET DR BY MOUTH (13:04)
== END 2023-05-18 14:35 ==
LOC: ANHED 19:19 → ANH3MEDSUR 05-16 12:20
PROVIDERS: Emergency Medicine; Admitting Provider Internal Medicine; Emergency Provider Physician Assistant; PCP Family Medicine; Visit Provider Chiropractor
DX: N39.0 Urinary tract infection, site not specified (principal); B95.1 Streptococcus, group B, as the cause of diseases classified elsewhere; R41.82 Altered mental status, unspecified; I13.0 Hypertensive heart and chronic kidney disease with heart failure and stage 1 through stage 4 chronic kidney disease, or unspecified chronic kidney disease; I50.9 Heart failure, unspecified; E11.22 Type 2 diabetes mellitus with diabetic chronic kidney disease; N18.32 Chronic kidney disease, stage 3b; I69.90 Unspecified sequelae of unspecified cerebrovascular disease; R29.3 Abnormal posture; E78.5 Hyperlipidemia, unspecified; E87.6 Hypokalemia; F03.90 Unspecified dementia, unspecified severity, without behavioral disturbance, psychotic disturbance, mood disturbance, and anxiety; R44.3 Hallucinations, unspecified; Z79.82 Long term (current) use of aspirin; Z79.84 Long term (current) use of oral hypoglycemic drugs; Z79.899 Other long term (current) drug therapy
CPT/HCPCS: 36415; 70450; 70553; 71045; 80048; 80053; 81001; 82948; 83735; 84132; 84484; 85025; 85610; 85730; 87086; 87088; 87147; 93005; 96365; 96366; 96375; 97161; 97165; 97530; 97535; 99285; A9270; A9577; G0378; J0696; J3480; J7040

== ENCOUNTER 2023-07-29 12:01 | Emergency (ER) | payer MEDICARE, SELFPAY ==
--- NOTE | ~2023-07-29 | CT_ITS ---
EXAMINATION: CT cervical spine wo con DATE: 07/29/2023 14:02 INDICATION: Neck pain TECHNIQUE: Computed tomography (CT) of the cervical spine was performed without intravenous contrast. The dose-length product (DLP) was 235.83 mGy-cm. Automated exposure control and iterative reconstruc tion technique were employed. COMPARISON: None FINDINGS: Bone alignment is normal. There is no fracture. There is mild loss of intervertebral disc s pace height at C4-5, C5-6, and C6-7. The odontoid process is intact. Small degenerative osteophytes p roject from the anterior endplates of multiple vertebral bodies. There is multilevel mild facet and u ncovertebral joint osteoarthritis. IMPRESSION: 1. Mild cervical spondylosis without acute findings. Reviewed, dictated and finalized at location F. SETTER OVERLOCK
--- NOTE | ~2023-07-29 | CT_ITS ---
EXAMINATION: CT brain wo con INDICATION: Headache COMPARISON: None TECHNIQUE: Standard unenhanced head CT. The dose-length product (DLP) was 605.33 mGy-cm. The mA was a djusted according to patient size. Iterative reconstruction technique was employed. FINDINGS: No acute intraparenchymal hemorrhage. No evidence of mass lesion. No evidence of acute infa rction. There is mild periventricular and subcortical hypodensity probably related to small vessel is chemic disease. There is mild prominence of the sulci and ventricles related to cerebral atrophy. Int racranial calcified cerebral atherosclerosis is noted. No extra-axial collections. No mass effect or midline shift. Changes in the globes are likely from ocular lens surgery. There is mild mucosal thick ening of the paranasal sinuses. IMPRESSION: 1. No acute intracranial abnormality. 2. Age related findings. Reviewed, dictated and finalized at location F. FORCE PLANNING ANALYST
--- NOTE | ~2023-07-29 | XR_ITS ---
EXAMINATION: XR shoulder RT min 2V INDICATION: Right shoulder pain TECHNIQUE: Three views of the right shoulder are submitted. COMPARISON: None FINDINGS: Normal alignment. No fracture. Glenohumeral and acromioclavicular joint spaces demonstrate moderate osteoarthritis. Soft tissues are unremarkable. IMPRESSION: 1. No acute osseous abnormality. Reviewed, dictated and finalized at location F. ERN CLEANER
[2023-07-29 12:02] VITALS: BP 161/88; PULSE 66; RESP 16; TEMP 36.6; O2SAT 96
[2023-07-29 12:14] VITALS: BP 138/78; PULSE 59; RESP 20; O2SAT 97
[2023-07-29 13:00] VITALS: BP 142/80; PULSE 63; RESP 18; TEMP 36.7; O2SAT 98
--- NOTE | 2023-07-29 13:14 | ED.FALL ---
HPI - Fall General Chief Complaint: Fall Stated Complaint: glf Time Seen by Provider: 07/29/23 12:53 Source: patient and family (daughter and daughter's fiance) History of Present Illness HPI Narrative: This is an 82 year old female who presents after falling twice at her senior care. Patient resides in a memory care unit. There are cameras and screen shots patient's daughter/daughter's fiance have show a fall occuring between 5:48am and 6:17am as well as another one at 11:08. No live action of patient falling, but screen shots of patient in bed followed by viewed on the ground. Patient told them she recalled falling twice but can not endorse this to me. Uses a walker at baseline and receives PT services at facility. Recent dental procedures this week but no new meds (not even using pain medications as prescribed as hadn't endorsed pain after). Vital signs documented by nursing however reported as 164/57, temp 97.2 Fahrenheit, heart rate 72, respiratory rate 14, SPO2 95%. Medications per nursing documentation are acetaminophen 500, adult 50+, alprazolam 0.5 , aspirin, carvedilol, cerovite, cinnamon Cranberry, fenofibrate, FeroSul, Fiber-Lax, fish oil, ibuprofen, metformin, potassium chloride, pravastatin, quetiapine, sodium chloride, trazodone, vitamin D3. Related Data Home Medications Medication Instructions Recorded Confirmed aspirin 81 mg tablet,delayed 81 mg PO DAILY 10/17/22 05/15/23 release (Adult Low Dose Aspirin) azilsartan medoxomil 40 1 tablet PO DAILY 10/17/22 05/15/23 mg-chlorthalidone 25 mg tablet (Edarbyclor) carvedilol 12.5 mg tablet 12.5 mg PO .COMPLEX 10/17/22 05/15/23 cinnamon bark 500 mg capsule 500 mg PO DAILY 10/17/22 05/15/23 cyclobenzaprine 5 mg tablet 5 mg PO QHS PRN Spasms 10/17/22 05/15/23 fenofibrate nanocrystallized 145 145 mg PO DAILY 10/17/22 05/15/23 mg tablet metformin 500 mg tablet 1,000 mg PO DAILY 10/17/22 05/15/23 mnlpykfauyhm-mtlydvpx-xhptpi tablet 1 tablet PO DAILY 10/17/22 05/15/23 nifedipine 30 mg tablet,extended 30 mg PO DAILY 10/17/22 05/15/23 release omega 7-mfi-lzm-fish oil 500 mg 1 cap PO DAILY 10/17/22 05/15/23 (200mg-300mg)-1,000 mg capsule pravastatin 20 mg tablet 20 mg PO DAILY 10/17/22 05/15/23 calcium polycarbophil 625 mg 625 mg PO DAILY 05/15/23 05/15/23 tablet (Fiber-Lax) carvedilol 25 mg tablet 25 mg PO BID 05/15/23 05/15/23 ferrous sulfate 325 mg (65 mg 325 mg PO DAILY 05/15/23 05/15/23 iron) tablet (FeroSul) furosemide 20 mg tablet 20 mg PO DAILY 05/15/23 05/15/23 Allergies Allergy/AdvReac Type Severity Reaction Status Date / Time Sulfa (Sulfonamide Allergy Mild Nausea Verified 07/29/23 12:07 Antibiotics) [facility] Past Medical History Medical History Alzheimer disease Anxiety disorder, unspecified Chronic kidney disease, stage 3b Constipation, unspecified Essential (primary) hypertension History of dementia History of hyperlipidemia Iron deficiency anemia Type 2 diabetes mellitus Unspecified combined systolic (congestive) and diastolic (congestive) heart failure Surgical History Surgical History History of root canal procedure Social History Social History Smoking status: Never smoker Alcohol intake: never Substance use: never Substance use type: does not use Lack of Transportation: No Lack of Food: Never True Current Housing: I Have Housing Concerned About Future Housing: No Difficulty Paying Gas/Electric Bills: No Difficulty Paying for Meds: No Currently Unemployed: No Education: Bachelor's Degree Difficulty w/ Childcare or Family Care: No Gender identity (if verbalized by the patient): Female Spiritual care concerns: No Exam Const: General: healthy appearing, no acute distress, alert and confusion; No diaphoretic or ill appearin
[2023-07-29 13:57] LABS: Basophils Percent Auto 0.7 % (0.2-1.2); Eosinophils Absolute Auto 0.1 K/mm3 (0-0.3); Eosinophils Percent Auto 1.4 % (0-4.4); Hematocrit 32.9 % (37.0-47.0); Hemoglobin 10.3 g/dL (12.0-15.0); Immature Granulocyte Absolute 0.02 K/mm3 (0.00-0.031); Immature Granulocyte Percent A 0.4 % (0-0.5); Lymphocytes Percent Auto 16.2 % (18.3-44.2); Mean Corpuscular HGB Conc 31.3 g/dl (32-36); Mean Corpuscular Hemoglobin 30.4 pg (26-34); Mean Corpuscular Volume 97.1 fl (80-100); Mean Platelet Volume 10.5 fl (7.4-10.4); Monocytes Absolute Auto 0.4 K/mm3 (0.1-0.6); Monocytes Percent Auto 7.7 % (2.6-8.5); Neutrophils Absolute Auto 4.1 K/mm3 (1.3-6.7); Neutrophils Percent Auto 73.6 % (45.5-73.1); Platelet Count Result 195 k/mm3 (150-375); Red Blood Count 3.39 M/mm3 (4.2-5.4); White Blood Count 5.6 K/mm3 (4.5-10.0)
[2023-07-29 14:00] VITALS: BP 136/70; PULSE 58; RESP 18; TEMP 36.3; O2SAT 98
[2023-07-29 14:16] LABS: Alanine Aminotransferase 20 U/L (6-35); Albumin Level 3.4 g/dL (3.5-5.1); Alkaline Phosphatase 46 U/L (38-126); Anion Gap 4 mmol/L (8-16); Aspartate Amino Transferase 33 U/L (14-36); Bilirubin,Total 0.8 mg/dL (0.2-1.3); Blood Urea Nitrogen 16 mg/dL (7-17); Calcium 9.4 mg/dL (8.4-10.2); Carbon Dioxide 29 mmol/L (22-30); Chloride 104 mmol/L (98-107); Estimated Glomerular Filt Rate 53; Glucose 90 mg/dL (65-110); Potassium 3.3 mmol/L (3.4-5.0); Sodium 137 mmol/L (137-145)
[2023-07-29 14:52] LABS: Appearance Urine Clear (Clear); Bilirubin Urine Negative (Negative); Blood Urine Negative (Negative); Color Urine Yellow (Yellow); Glucose Urine UA Negative (Negative); Ketones Urine Negative (Negative); Leukocyte Esterase Ur Negative LEU/UL (Negative); Nitrate Urine Negative (Negative); Protein Urine Negative (Negative); Specific Grav Ur 1.013 (1.001-1.035)
[2023-07-29 14:57] LABS: Add Urine Microscopic? NO
[2023-07-29 15:00] VITALS: BP 136/70; PULSE 56; RESP 16; O2SAT 98
[2023-07-29] MEDS: POTASSIUM PHOS/SODIUM PHOS 250 MG TABLET PO (15:32)
== END 2023-07-29 16:29 ==
PROVIDERS: Emergency Provider Student in an Organized Health Care Education/Training Program; PCP Family Medicine
DX: Z04.3 Encounter for examination and observation following other accident (principal); G30.9 Alzheimer's disease, unspecified; F02.80 Dementia in other diseases classified elsewhere, unspecified severity, without behavioral disturbance, psychotic disturbance, mood disturbance, and anxiety; I12.9 Hypertensive chronic kidney disease with stage 1 through stage 4 chronic kidney disease, or unspecified chronic kidney disease; E11.22 Type 2 diabetes mellitus with diabetic chronic kidney disease; N18.32 Chronic kidney disease, stage 3b; E78.5 Hyperlipidemia, unspecified; W18.30XA Fall on same level, unspecified, initial encounter; Y92.89 Other specified places as the place of occurrence of the external cause
CPT/HCPCS: 36415; 70450; 72125; 73030; 80053; 81003; 85025; 99284; A9270

== ENCOUNTER 2023-09-03 11:10 | Emergency (ER) | payer MEDICARE, SELFPAY ==
[2023-09-03] VITALS (23 sets, daily range): BP systolic 142–192; BP diastolic 46–86; PULSE 65–88; RESP 12–23; TEMP 36.4; O2SAT 96–100
--- NOTE | ~2023-09-03 | CT_ITS ---
EXAMINATION: CT brain wo con DATE: 09/03/2023 11:55 INDICATION: Head injury. TECHNIQUE: Computed tomography (CT) of the head was performed without intravenous contrast. The mA wa s adjusted according to patient size. Iterative reconstruction technique was employed. The dose-lengt h product was 605.33 mGy-cm. COMPARISON: Head CT 07/29/2023 FINDINGS: There are scattered areas of low attenuation in the cerebral white matter, which is within normal limits for the patient's age. There is no intracranial hemorrhage, acute infarction, or abnorm al intracranial mass lesion. The ventricles are normal in size. There is mucosal thickening in the pa ranasal sinuses. There are likely changes of ocular lens replacement surgeries. There is a small righ t mastoid effusion. IMPRESSION: 1. Normal aging brain. Reviewed, dictated and finalized at location A. T SETTER IMPRESSION: 1. Normal aging brain.
[2023-09-03 12:12] LABS: Basophils Percent Auto 0.7 % (0.2-1.2); Eosinophils Absolute Auto 0.1 K/mm3 (0-0.3); Eosinophils Percent Auto 1.3 % (0-4.4); Hematocrit 35.2 % (37.0-47.0); Hemoglobin 10.8 g/dL (12.0-15.0); Immature Granulocyte Absolute 0.01 K/mm3 (0.00-0.031); Immature Granulocyte Percent A 0.2 % (0-0.5); Lymphocytes Percent Auto 11.2 % (18.3-44.2); Mean Corpuscular HGB Conc 30.7 g/dl (32-36); Mean Corpuscular Hemoglobin 29.8 pg (26-34); Mean Corpuscular Volume 97.2 fl (80-100); Mean Platelet Volume 10.3 fl (7.4-10.4); Monocytes Absolute Auto 0.4 K/mm3 (0.1-0.6); Monocytes Percent Auto 6.9 % (2.6-8.5); Neutrophils Absolute Auto 4.3 K/mm3 (1.3-6.7); Neutrophils Percent Auto 79.7 % (45.5-73.1); Platelet Count Result 219 k/mm3 (150-375); Red Blood Count 3.62 M/mm3 (4.2-5.4); Red Cell Distribution Width 14.3 % (11.5-14.5); White Blood Count 5.4 K/mm3 (4.5-10.0)
[2023-09-03 12:21] LABS: Alanine Aminotransferase 19 U/L (6-35); Albumin Level 3.6 g/dL (3.5-5.1); Alkaline Phosphatase 66 U/L (38-126); Anion Gap 4 mmol/L (8-16); Aspartate Amino Transferase 33 U/L (14-36); Bilirubin,Total 0.7 mg/dL (0.2-1.3); Blood Urea Nitrogen 17 mg/dL (7-17); Calcium 9.5 mg/dL (8.4-10.2); Carbon Dioxide 29 mmol/L (22-30); Chloride 106 mmol/L (98-107); Estimated CRCL calculation 41 ml/min; Estimated Glomerular Filt Rate 60; Glucose 97 mg/dL (65-110); Potassium 3.7 mmol/L (3.4-5.0); Sodium 139 mmol/L (137-145)
[2023-09-03 12:47] LABS: Appearance Urine Clear (Clear); Bacteria Urine None Seen /hpf; Bilirubin Urine Negative (Negative); Blood Urine Negative (Negative); Color Urine Yellow (Yellow); Glucose Urine UA Negative (Negative); Ketones Urine Negative (Negative); Leukocyte Esterase Ur 1+ LEU/UL (Negative); Nitrate Urine Negative (Negative); Non Pathogenic Casts 0-2; Protein Urine Negative (Negative); RBC Urine 0-2 /hpf (0-2); Specific Grav Ur 1.008 (1.001-1.035); Squamous Epithelial Cell Urine None seen /hpf (Few); pH Urine 7.5 (5.0-9.0)
[2023-09-03 13:05] LABS: Add Urine Microscopic? YES
--- NOTE | 2023-09-03 13:28 | ED.FALL ---
HPI - Fall General Chief Complaint: Fall Stated Complaint: fall Time Seen by Provider: 09/03/23 11:28 History of Present Illness HPI Narrative: Patient is an 82-year-old female who presents ER after having a fall at her senior living. Tripped and fell on the way to the bathroom. Struck the left side of her head. No LOC. She is on aspirin. Denies any fevers or chills or sweats. No urinary symptoms per report she does get frequent UTIs. denies any extremity pain. Related Data Home Medications Medication Instructions Recorded Confirmed aspirin 81 mg tablet,delayed 81 mg PO DAILY 10/17/22 05/15/23 release (Adult Low Dose Aspirin) azilsartan medoxomil 40 1 tablet PO DAILY 10/17/22 05/15/23 mg-chlorthalidone 25 mg tablet (Edarbyclor) carvedilol 12.5 mg tablet 12.5 mg PO .COMPLEX 10/17/22 05/15/23 cinnamon bark 500 mg capsule 500 mg PO DAILY 10/17/22 05/15/23 cyclobenzaprine 5 mg tablet 5 mg PO QHS PRN Spasms 10/17/22 05/15/23 fenofibrate nanocrystallized 145 145 mg PO DAILY 10/17/22 05/15/23 mg tablet metformin 500 mg tablet 1,000 mg PO DAILY 10/17/22 05/15/23 frgjhyjgiaoc-qtzwxwbv-ghfuio tablet 1 tablet PO DAILY 10/17/22 05/15/23 nifedipine 30 mg tablet,extended 30 mg PO DAILY 10/17/22 05/15/23 release omega 5-acq-ivf-fish oil 500 mg 1 cap PO DAILY 10/17/22 05/15/23 (200mg-300mg)-1,000 mg capsule pravastatin 20 mg tablet 20 mg PO DAILY 10/17/22 05/15/23 calcium polycarbophil 625 mg 625 mg PO DAILY 05/15/23 05/15/23 tablet (Fiber-Lax) carvedilol 25 mg tablet 25 mg PO BID 05/15/23 05/15/23 ferrous sulfate 325 mg (65 mg 325 mg PO DAILY 05/15/23 05/15/23 iron) tablet (FeroSul) furosemide 20 mg tablet 20 mg PO DAILY 05/15/23 05/15/23 Allergies Allergy/AdvReac Type Severity Reaction Status Date / Time Sulfa (Sulfonamide AdvReac Mild Nausea Verified 09/03/23 13:32 Antibiotics) Review of Systems Review of Systems: All systems reviewed & are unremarkable except as noted in HPI and below Constitutional: Constitutional: Reports no additional constitutional complaints ENT: Reports system reviewed and no additional complaints, except as documented Cardiovascular: Cardiovascular: Reports no additional cardiovascular complaints Respiratory: Respiratory: Reports no additional respiratory complaints Genitourinary: Genitourinary: Reports no additional female genitourinary complaints Neurologic: Denies headache(s), Denies focal weakness and Denies numbness PMFSH Past Medical History Medical History (Updated 09/03/23 @ 13:31 by Dann Wood MD) Alzheimer disease Anxiety disorder, unspecified Chronic kidney disease, stage 3b Constipation, unspecified Essential (primary) hypertension History of dementia History of hyperlipidemia Iron deficiency anemia Type 2 diabetes mellitus Unspecified combined systolic (congestive) and diastolic (congestive) heart failure Surgical History Surgical History History of root canal procedure Social History Social History Smoking status: Never smoker Alcohol intake: never Substance use: never Substance use type: does not use Lack of Transportation: No Lack of Food: Never True Current Housing: I Have Housing Concerned About Future Housing: No Difficulty Paying Gas/Electric Bills: No Difficulty Paying for Meds: No Currently Unemployed: No Education: Bachelor's Degree Difficulty w/ Childcare or Family Care: No Gender identity (if verbalized by the patient): Female Spiritual care concerns: No Exam Narrative: GENERAL: Well-appearing, well-nourished, and in no acute distress. HEAD: Normocephalic, atraumatic. EYES: PERRL and EOMI. ENT: Mucous membranes moist. CHEST: Clear to auscultation. No respiratory distress. HEART: Regular rate and rhythm. Normal peripheral pulses. ABDOMEN: Soft, nontender, nondist
[2023-09-03] MEDS: CEPHALEXIN 500 MG CAPSULE PO (13:37)
== END 2023-09-03 14:56 | disposition home or self-care (01) ==
PROVIDERS: Emergency Provider Emergency Medicine; PCP Family Medicine
DX: S09.90XA Unspecified injury of head, initial encounter (principal); N39.0 Urinary tract infection, site not specified; G30.9 Alzheimer's disease, unspecified; F02.80 Dementia in other diseases classified elsewhere, unspecified severity, without behavioral disturbance, psychotic disturbance, mood disturbance, and anxiety; E78.5 Hyperlipidemia, unspecified; I13.0 Hypertensive heart and chronic kidney disease with heart failure and stage 1 through stage 4 chronic kidney disease, or unspecified chronic kidney disease; E11.22 Type 2 diabetes mellitus with diabetic chronic kidney disease; N18.32 Chronic kidney disease, stage 3b; I50.40 Unspecified combined systolic (congestive) and diastolic (congestive) heart failure; Z79.82 Long term (current) use of aspirin; W01.0XXA Fall on same level from slipping, tripping and stumbling without subsequent striking against object, initial encounter; Y92.121 Bathroom in nursing home as the place of occurrence of the external cause
CPT/HCPCS: 36415; 70450; 80053; 81001; 85025; 87086; 99284; A9270

== ENCOUNTER 2023-09-14 10:14 | Emergency (ER) | payer MEDICARE, SELFPAY ==
[2023-09-14] VITALS (7 sets, daily range): BP systolic 150–186; BP diastolic 59–77; PULSE 58–87; RESP 16–22; TEMP 36.4; O2SAT 94–98
--- NOTE | ~2023-09-14 | CT_ITS ---
EXAMINATION: CT cervical spine wo con DATE: 09/14/2023 11:45 INDICATION: Head injury TECHNIQUE: Computed tomography (CT) of the cervical spine was performed without intravenous contrast. The dose-length product (DLP) was 219.53 mGy-cm. Automated exposure control and iterative reconstruc tion technique were employed. COMPARISON: 07/29/2023 FINDINGS: Bone alignment is normal. There is no fracture. There is mild loss of intervertebral disc s pace height at C4-5, C5-6, and C6-7. The vertebral body heights are maintained. The odontoid process is intact. The prevertebral soft tissues are normal. Small degenerative osteophytes project from the anterior endplates of multiple vertebral bodies. There is multilevel mild facet and uncovertebral khris nt osteoarthritis. IMPRESSION: 1. Mild cervical spondylosis without acute findings or significant interval change. Reviewed, dictated and finalized at location B. ATOR AND TRUCK DRIVER IMPRESSION: 1. Mild cervical spondylosis without acute findings or significant interval adia nge.
--- NOTE | ~2023-09-14 | XR_ITS ---
EXAMINATION: XR shoulder RT min 2V INDICATION: Right shoulder pain TECHNIQUE: Three views of the right shoulder are submitted. COMPARISON: None FINDINGS: Normal alignment. No fracture. Glenohumeral and acromioclavicular joint spaces are normal. Soft tissues are unremarkable. IMPRESSION: 1. No acute osseous abnormality. Reviewed, dictated and finalized at location B. LE LOOM TENDER
--- NOTE | ~2023-09-14 | XR_ITS ---
EXAMINATION: XR chest 1V INDICATION: Chest pain after fall TECHNIQUE: AP view of the chest is obtained. COMPARISON: 05/15/2023 FINDINGS: The lungs are free of acute opacities. Cardiomegaly is noted. No pleural effusion or pneumo thorax. IMPRESSION: 1. Cardiomegaly. Reviewed, dictated and finalized at location B. STRIAL HYGIENE ENGINEER IMPRESSION: 1. Cardiomegaly.
--- NOTE | ~2023-09-14 | XR_ITS ---
EXAMINATION: XR hip RT 2V w AP pelvis INDICATION: Pain after fall TECHNIQUE: AP view the pelvis and two views of the right hip are obtained. COMPARISON: None available FINDINGS: Bone alignment is normal. There is no fracture. The femoral heads are well-seated in their acetabula. There appears to be a small bone island of the right ilium. IMPRESSION: 1. No acute osseous abnormality. Reviewed, dictated and finalized at location B. S REPRESENTATIVE MEATS
--- NOTE | ~2023-09-14 | CT_ITS ---
EXAMINATION: CT brain wo con INDICATION: Head injury COMPARISON: 09/03/2023 TECHNIQUE: Standard unenhanced head CT. The dose-length product (DLP) was 605.33 mGy-cm. The mA was a djusted according to patient size. Iterative reconstruction technique was employed. FINDINGS: No acute intraparenchymal hemorrhage. No evidence of mass lesion. No evidence of acute infa rction. There is mild periventricular and subcortical hypodensity probably related to small vessel is chemic disease. There is mild prominence of the sulci and ventricles related to cerebral atrophy. Int racranial calcified cerebral atherosclerosis is noted. No extra-axial collections. No mass effect or midline shift. Changes in the globes are likely from ocular lens surgery. There is mild mucosal thick ening of the paranasal sinuses. IMPRESSION: 1. No acute intracranial abnormality. 2. Age related findings. Reviewed, dictated and finalized at location B. ISION ASSEMBLER
--- NOTE | 2023-09-14 11:01 | ED.WEAKNESS ---
HPI - Weakness General Chief complaint: Weakness Stated complaint: Fall x2 Time Seen by Provider: 09/14/23 10:39 Source: patient and family (daughter) Limitations: dementia History of Present Illness HPI Narrative: Patient presents from memory care facility after sustaining a fall yesterday and this morning by report. Family stated patient was off afterwards, seemingly not using their right arm as much. Daughter concerned patient's dementia is getting worse with language declining in the past month. Difficulty swallowing pills. She had a dental appointment yesterday. Patient denies chest pain, diarrhea, fevers. At baseline, she is alert and oriented to herself. Recently had a UTI. Related Data Home Medications Medication Instructions Recorded Confirmed carvedilol 12.5 mg tablet 12.5 mg PO .COMPLEX 10/17/22 09/12/23 cinnamon bark 500 mg capsule 500 mg PO DAILY 10/17/22 09/12/23 cyclobenzaprine 5 mg tablet 5 mg PO QHS PRN Spasms 10/17/22 09/12/23 fenofibrate nanocrystallized 145 145 mg PO DAILY 10/17/22 09/12/23 mg tablet metformin 500 mg tablet 1,000 mg PO DAILY 10/17/22 09/12/23 jcbovitbicsh-erwsqocn-tgvwqu tablet 1 tablet PO DAILY 10/17/22 09/12/23 omega 9-lnz-bie-fish oil 500 mg 1 cap PO DAILY 10/17/22 09/12/23 (200mg-300mg)-1,000 mg capsule pravastatin 20 mg tablet 20 mg PO DAILY 10/17/22 09/12/23 furosemide 20 mg tablet 20 mg PO DAILY 05/15/23 09/12/23 alprazolam 0.5 mg tablet 0.5 mg PO QHS PRN 09/10/23 09/12/23 nitrofurantoin 100 mg capsule 100 mg PO Q12H 09/10/23 09/12/23 potassium chloride 10 mEq 10 meq PO DAILY 09/10/23 09/12/23 capsule,extended release quetiapine 25 mg tablet 25 mg PO QHS 09/10/23 09/12/23 trazodone 100 mg tablet 100 mg PO QHS PRN 09/10/23 09/12/23 Allergies Allergy/AdvReac Type Severity Reaction Status Date / Time Sulfa (Sulfonamide AdvReac Mild Nausea Verified 09/14/23 10:32 Antibiotics) PMFSH Past Medical History Medical History Alzheimer disease Anxiety disorder, unspecified Chronic kidney disease, stage 3b Constipation, unspecified Essential (primary) hypertension History of dementia History of hyperlipidemia Iron deficiency anemia Type 2 diabetes mellitus Unspecified combined systolic (congestive) and diastolic (congestive) heart failure Surgical History Surgical History History of root canal procedure Social History Social History (Updated 09/23/23 @ 00:16 by Paty Mcclellan MD) Social History: Advanced Directive CPR per facility documentation; DPOA daughter Smoking status: Never smoker Alcohol intake: never Substance use: never Substance use type: does not use Lack of Transportation: No Lack of Food: Never True Current Housing: I Have Housing Concerned About Future Housing: No Difficulty Paying Gas/Electric Bills: No Difficulty Paying for Meds: No Currently Unemployed: No Education: Bachelor's Degree Difficulty w/ Childcare or Family Care: No Additional living arrangements comments: M[facility] Hoffman of [facility] since 04/15/23 Gender identity (if verbalized by the patient): Female Spiritual care concerns: No Exam Narrative: GENERAL: Well-appearing, well-nourished, and in no acute distress. HEAD: Very small barely palpable hematoma over posterior skull though with area of ecchymosis EYES: Non injected, non icteric ENT: Nares clear, no rhinorrhea or epistaxis. NECK: Supple. CHEST: Clear to auscultation. No respiratory distress. HEART: Regular rate and rhythm. . ABDOMEN: Soft, nondistended. EXTREMITIES: Passive range of motion without restriction. NO bony defromities or crepitus. Patient is made to reach for Ruffles chips and shows movement in UEs though left greater than right. No edema. Pelvis stable to compression and w/o tenderness. Small area of ecchymosis on right hip. SKIN: Warm, dry. Small area o
--- NOTE | 2023-09-14 11:27 | ECG_ITS ---
Measurements Intervals [place] Rate: 75 P: 47 AK: 131 QRS: 9 QRSD: 86 T: 15 QT: 369 QTc: 413 Interpretive Statements SINUS RHYTHM MINOR NONSPECIFIC ST SEGMENT ABNORMALITY BORDERLINE ECG COMPARED TO ECG 05/15/2023 18:29:40 NO SIGNIFICANT CHANGES Electronically Signed On 09-14-2023 15:25:57 HEAD SULFIDE OPERATOR by Hayden Irwin M.D.
[2023-09-14] MEDS: SODIUM CHLORIDE 0.9% IV 1,000 ML 999 ML IV CONT (12:10)
[2023-09-14 12:35] LABS: Appearance Urine Clear (Clear); Bacteria Urine None Seen /hpf; Bilirubin Urine Negative (Negative); Blood Urine Negative (Negative); Color Urine Yellow (Yellow); Glucose Urine UA Negative (Negative); Ketones Urine Negative (Negative); Leukocyte Esterase Ur Negative LEU/UL (Negative); Nitrate Urine Negative (Negative); Non Pathogenic Casts 0-2; Protein Urine Trace mg/dL (Negative); RBC Urine 0-2 /hpf (0-2); Specific Grav Ur 1.017 (1.001-1.035); Squamous Epithelial Cell Urine Occasional /hpf (Few); WBC Urine 0-5 /hpf
[2023-09-14 12:40] LABS: Basophils Absolute Auto 0.1 K/mm3 (0.0-0.1); Basophils Percent Auto 0.7 % (0.2-1.2); Eosinophils Absolute Auto 0.1 K/mm3 (0-0.3); Eosinophils Percent Auto 0.9 % (0-4.4); Hematocrit 38.7 % (37.0-47.0); Hemoglobin 11.8 g/dL (12.0-15.0); Immature Granulocyte Absolute 0.01 K/mm3 (0.00-0.031); Immature Granulocyte Percent A 0.1 % (0-0.5); Lymphocytes Absolute Auto 0.95 K/mm3 (0.9-3.2); Lymphocytes Percent Auto 14.2 % (18.3-44.2); Mean Corpuscular HGB Conc 30.5 g/dl (32-36); Mean Corpuscular Hemoglobin 29.7 pg (26-34); Mean Corpuscular Volume 97.5 fl (80-100); Mean Platelet Volume 10.5 fl (7.4-10.4); Monocytes Absolute Auto 0.4 K/mm3 (0.1-0.6); Monocytes Percent Auto 6.4 % (2.6-8.5); Neutrophils Absolute Auto 5.2 K/mm3 (1.3-6.7); Neutrophils Percent Auto 77.7 % (45.5-73.1); Platelet Count Result 260 k/mm3 (150-375); Red Blood Count 3.97 M/mm3 (4.2-5.4); White Blood Count 6.7 K/mm3 (4.5-10.0)
[2023-09-14 12:41] LABS: Alanine Aminotransferase 32 U/L (6-35); Alkaline Phosphatase 60 U/L (38-126); Anion Gap 9 mmol/L (8-16); Aspartate Amino Transferase 64 U/L (14-36); Blood Urea Nitrogen 18 mg/dL (7-17); Calcium 10.2 mg/dL (8.4-10.2); Carbon Dioxide 29 mmol/L (22-30); Chloride 103 mmol/L (98-107); Creatine Kinase 502 U/L (30-135); Estimated CRCL calculation 41 ml/min; Estimated Glomerular Filt Rate 60; Glucose 98 mg/dL (65-110); Potassium 3.5 mmol/L (3.4-5.0); Sodium 141 mmol/L (137-145)
[2023-09-14 12:42] LABS: Partial Thromboplastin Time 28.8 SECONDS (22.3-36.8); Prothrombin Time 13.9 Seconds (11.1-14.7)
[2023-09-14 12:53] LABS: Add Urine Microscopic? YES
== END 2023-09-14 14:30 ==
PROVIDERS: Emergency Provider Student in an Organized Health Care Education/Training Program; PCP Family Medicine
DX: Z04.3 Encounter for examination and observation following other accident (principal); M47.812 Spondylosis without myelopathy or radiculopathy, cervical region; R74.01 Elevation of levels of liver transaminase levels; I51.7 Cardiomegaly; G30.9 Alzheimer's disease, unspecified; F02.80 Dementia in other diseases classified elsewhere, unspecified severity, without behavioral disturbance, psychotic disturbance, mood disturbance, and anxiety; I13.0 Hypertensive heart and chronic kidney disease with heart failure and stage 1 through stage 4 chronic kidney disease, or unspecified chronic kidney disease; I50.40 Unspecified combined systolic (congestive) and diastolic (congestive) heart failure; E11.22 Type 2 diabetes mellitus with diabetic chronic kidney disease; N18.32 Chronic kidney disease, stage 3b; E78.5 Hyperlipidemia, unspecified; D50.9 Iron deficiency anemia, unspecified; Z79.84 Long term (current) use of oral hypoglycemic drugs; W19.XXXA Unspecified fall, initial encounter
CPT/HCPCS: 36415; 70450; 71045; 72125; 73030; 73502; 80053; 81001; 82550; 85025; 85610; 85730; 93005; 96360; 99284; J7030

== ENCOUNTER 2023-09-26 18:26 | Emergency (ER) | payer MEDICARE, SELFPAY ==
--- NOTE | ~2023-09-26 | CT_ITS ---
EXAMINATION: CT brain wo con DATE: 09/26/2023 19:04 INDICATION: Head injury. TECHNIQUE: Computed tomography (CT) of the head was performed without intravenous contrast. The mA wa s adjusted according to patient size. Iterative reconstruction technique was employed. The dose-lengt h product was 605.33 mGy-cm. COMPARISON: Head CT 09/14/2023 FINDINGS: There are scattered areas of low attenuation in the cerebral white matter, which is within normal limits for the patient's age. There is no intracranial hemorrhage, acute infarction, or abnorm al intracranial mass lesion. The ventricles are normal in size. There are likely changes of ocular le ns replacement surgeries. There is mild mucosal thickening in the paranasal sinuses. The mastoid air cells are normal. IMPRESSION: 1. Normal aging brain. Reviewed, dictated and finalized at location E. CIATE STORE MANAGER IMPRESSION: 1. Normal aging brain.
--- NOTE | ~2023-09-26 | CT_ITS ---
EXAMINATION: CT cervical spine wo con DATE: 09/26/2023 19:05 INDICATION: Head injury. TECHNIQUE: Computed tomography (CT) of the cervical spine was performed without intravenous contrast. Automated exposure control and iterative reconstruction technique were employed. The dose-length pro duct was 310.57 mGy-cm. COMPARISON: CT cervical spine 09/14/2023 FINDINGS: Bone alignment is normal. Vertebral body heights are normal. There is moderately decreased disc height at C4-C5 and C5-C6 and severely decreased disc height at C6-C7. The following disc levels are specifically discussed: C2-C3: There is no uncovertebral joint osteoarthritis. There is mild left facet joint osteoarthritis. There is no neural foraminal stenosis. There is no central canal stenosis. C3-C4: There is no uncovertebral joint osteoarthritis. There is mild bilateral facet joint osteoarthr itis. There is no neural foraminal stenosis. There is no central canal stenosis. C4-C5: There is severe bilateral uncovertebral joint osteoarthritis. There is mild bilateral facet ranjana int osteoarthritis. There is mild bilateral neural foraminal stenosis. There is mild central canal st enosis. C5-C6: There is severe bilateral uncovertebral joint osteoarthritis. There is mild bilateral facet ranjana int osteoarthritis. There is mild bilateral neural foraminal stenosis. There is mild central canal st enosis. C6-C7: There is moderate right and severe left uncovertebral joint osteoarthritis. There is moderate right and mild left facet joint osteoarthritis. There is mild bilateral neural foraminal stenosis. Th ere is mild central canal stenosis. C7-T1: There is no uncovertebral joint osteoarthritis. There is moderate bilateral facet joint osteoa rthritis. There is mild left neural foraminal stenosis. There is no central canal stenosis. IMPRESSION: 1. No fracture. 2. Severe cervical spondylosis. Reviewed, dictated and finalized at location E. UAL ASSISTANT FOR ADVERTISERS
[2023-09-26 18:23] VITALS: BP 170/68; PULSE 68; RESP 16; TEMP 37; O2SAT 98
[2023-09-26 19:31] VITALS: BP 143/76; PULSE 65; RESP 16; O2SAT 100
--- NOTE | 2023-09-26 19:31 | ED.FALL ---
HPI - Fall General Chief Complaint: Fall Stated Complaint: fall out of w/c Time Seen by Provider: 09/26/23 19:14 History of Present Illness HPI Narrative: Patient is an 82-year-old female with history of vascular dementia here after reportedly falling off her wheelchair. Patient cannot provide history and has no complaints. History is distant from EMS and daughter at bedside. They report that she has multiple falls and is always disoriented due to her dementia. She currently lives in a memory care facility. They do note that about 3 weeks ago she seemed to start having decreased strength in her right arm, they did not seek any care for this at that time, they do not want to be aggressive for workup in this and suspect is likely due to her vascular issues. Related Data Home Medications Medication Instructions Recorded Confirmed carvedilol 12.5 mg tablet 12.5 mg PO .COMPLEX 10/17/22 09/12/23 cinnamon bark 500 mg capsule 500 mg PO DAILY 10/17/22 09/12/23 cyclobenzaprine 5 mg tablet 5 mg PO QHS PRN Spasms 10/17/22 09/12/23 fenofibrate nanocrystallized 145 145 mg PO DAILY 10/17/22 09/12/23 mg tablet metformin 500 mg tablet 1,000 mg PO DAILY 10/17/22 09/12/23 jmfsgydxvzhy-bpyqnkgg-tiykxf tablet 1 tablet PO DAILY 10/17/22 09/12/23 omega 5-xdj-djc-fish oil 500 mg 1 cap PO DAILY 10/17/22 09/12/23 (200mg-300mg)-1,000 mg capsule pravastatin 20 mg tablet 20 mg PO DAILY 10/17/22 09/12/23 furosemide 20 mg tablet 20 mg PO DAILY 05/15/23 09/12/23 alprazolam 0.5 mg tablet 0.5 mg PO QHS PRN 09/10/23 09/12/23 nitrofurantoin 100 mg capsule 100 mg PO Q12H 09/10/23 09/12/23 potassium chloride 10 mEq 10 meq PO DAILY 09/10/23 09/12/23 capsule,extended release quetiapine 25 mg tablet 25 mg PO QHS 09/10/23 09/12/23 trazodone 100 mg tablet 100 mg PO QHS PRN 09/10/23 09/12/23 Allergies Allergy/AdvReac Type Severity Reaction Status Date / Time Sulfa (Sulfonamide AdvReac Mild Nausea Verified 09/14/23 10:32 Antibiotics) Review of Systems Review of Systems: ROS unobtainable: Yes unobtainable due to mental status PMFSH Past Medical History Medical History Alzheimer disease Anxiety disorder, unspecified Chronic kidney disease, stage 3b Constipation, unspecified Essential (primary) hypertension History of dementia History of hyperlipidemia Iron deficiency anemia Type 2 diabetes mellitus Unspecified combined systolic (congestive) and diastolic (congestive) heart failure Surgical History Surgical History History of root canal procedure Social History Social History (Updated 09/23/23 @ 00:16 by Paty Mcclellan MD) Social History: Advanced Directive CPR per facility documentation; DPOA daughter Smoking status: Never smoker Alcohol intake: never Substance use: never Substance use type: does not use Lack of Transportation: No Lack of Food: Never True Current Housing: I Have Housing Concerned About Future Housing: No Difficulty Paying Gas/Electric Bills: No Difficulty Paying for Meds: No Currently Unemployed: No Education: Bachelor's Degree Difficulty w/ Childcare or Family Care: No Additional living arrangements comments: Moe Hoffman of [facility] since 04/15/23 Gender identity (if verbalized by the patient): Female Spiritual care concerns: No Exam Narrative: GENERAL: Well-appearing, well-nourished, and in no acute distress. HEAD: Normocephalic, atraumatic. EYES: PERRLA and EOMI. ENT: Small amount of dried blood in bilateral nares, bridge of nose non tender. Mucous membranes moist. NECK: Supple. CHEST: Clear to auscultation. No respiratory distress. HEART: Regular rate and rhythm. Normal peripheral pulses. ABDOMEN: Soft, nontender, nondistended. EXTREMITIES: Normal range of motion. No edema. SKIN: Warm, dry, no rash. NEURO: Mild decreased strength in the right arm, no
== END 2023-09-26 20:09 ==
PROVIDERS: Emergency Provider Student in an Organized Health Care Education/Training Program; PCP Family Medicine
DX: S09.90XA Unspecified injury of head, initial encounter (principal); W05.0XXA Fall from non-moving wheelchair, initial encounter; G30.9 Alzheimer's disease, unspecified; F02.80 Dementia in other diseases classified elsewhere, unspecified severity, without behavioral disturbance, psychotic disturbance, mood disturbance, and anxiety; I13.0 Hypertensive heart and chronic kidney disease with heart failure and stage 1 through stage 4 chronic kidney disease, or unspecified chronic kidney disease; I50.40 Unspecified combined systolic (congestive) and diastolic (congestive) heart failure; E11.22 Type 2 diabetes mellitus with diabetic chronic kidney disease; N18.32 Chronic kidney disease, stage 3b; E78.2 Mixed hyperlipidemia; D50.9 Iron deficiency anemia, unspecified; F41.9 Anxiety disorder, unspecified; Z79.84 Long term (current) use of oral hypoglycemic drugs
CPT/HCPCS: 70450; 72125; 99284

== ENCOUNTER 2024-06-02 14:47 | Emergency (ER) | payer MEDICARE, SELFPAY ==
--- NOTE | ~2024-06-02 | XR_ITS ---
EXAMINATION: XR hip RT 2V w AP pelvis DATE: 06/02/2024 15:28 INDICATION: Fall. TECHNIQUE: An anteroposterior view of the pelvis and 2 views of right hip were obtained. COMPARISON: Ultrasound right hip radiograph 09/14/2023 FINDINGS: There is lumbar dextrocurvature and moderate spondylosis. No fracture. There is a benign arturo ne island in right ilium. There is mild osteoarthritis of the hips. Stool distends the rectum. IMPRESSION: 1. Mild osteoarthritis of the hips. 2. Stool distends the rectum. Reviewed, dictated and finalized at location A.
--- NOTE | ~2024-06-02 | XR_ITS ---
EXAM: XR shoulder RT min 2V DATE: 06/02/2024 15:28 HISTORY: fall . COMPARISON: 09/14/2023. FINDINGS: Osteopenia. No fracture or dislocation. No lytic or blastic lesion. Moderate AC joint and mild glenohumeral joint osteoarthritis. No erosion or periosteal change. Soft tissues within normal l imits. IMPRESSION: No acute osseous finding in the right shoulder. Reviewed, dictated and finalized at location K.
[2024-06-02 14:46] VITALS: BP 186/69; PULSE 95; RESP 18; TEMP 36.4; O2SAT 98
--- NOTE | 2024-06-02 15:28 | PC.NURSE ---
Patient family member at bedside. states that while watching camera footage it happened around 0230 and that the hospice staff believes that she fell while going to the bathroom and they believe she fell face first off of the toilet. patient daughter states that no one let her know until the hospice staff told her about it this afternoon
[2024-06-02 16:35] VITALS: BP 159/78; PULSE 79; RESP 18; O2SAT 99
--- NOTE | 2024-06-02 16:46 | ED.FALL ---
HPI - Fall General Chief Complaint: Fall Stated Complaint: fall Time Seen by Provider: 06/02/24 14:57 History of Present Illness HPI Narrative: Patient is an 83-year-old female who is on hospice that presents the ER for evaluation after fall last night. She has bruising to the right sabianism area as well as old bruising to the right shoulder. There was concerned maybe she could have injured her right hip. Patient unable to communicate. Related Data Home Medications Medication Instructions Recorded Confirmed carvedilol 12.5 mg tablet 12.5 mg PO .COMPLEX 10/17/22 09/12/23 cinnamon bark 500 mg capsule 500 mg PO DAILY 10/17/22 09/12/23 cyclobenzaprine 5 mg tablet 5 mg PO QHS PRN Spasms 10/17/22 09/12/23 fenofibrate nanocrystallized 145 145 mg PO DAILY 10/17/22 09/12/23 mg tablet metformin 500 mg tablet 1,000 mg PO DAILY 10/17/22 09/12/23 kikdviqgdozz-kazabcfs-ujlnrt tablet 1 tablet PO DAILY 10/17/22 09/12/23 omega 6-oda-kar-fish oil 500 mg 1 cap PO DAILY 10/17/22 09/12/23 (200mg-300mg)-1,000 mg capsule pravastatin 20 mg tablet 20 mg PO DAILY 10/17/22 09/12/23 furosemide 20 mg tablet 20 mg PO DAILY 05/15/23 09/12/23 alprazolam 0.5 mg tablet 0.5 mg PO QHS PRN 09/10/23 09/12/23 nitrofurantoin 100 mg capsule 100 mg PO Q12H 09/10/23 09/12/23 potassium chloride 10 mEq 10 meq PO DAILY 09/10/23 09/12/23 capsule,extended release quetiapine 25 mg tablet 25 mg PO QHS 09/10/23 09/12/23 trazodone 100 mg tablet 100 mg PO QHS PRN 09/10/23 09/12/23 Allergies Allergy/AdvReac Type Severity Reaction Status Date / Time Sulfa (Sulfonamide AdvReac Mild Nausea Verified 09/14/23 10:32 Antibiotics) Review of Systems Review of Systems: ROS unobtainable: Yes unobtainable due to mental status PMFSH Past Medical History Medical History Alzheimer disease Anxiety disorder, unspecified Chronic kidney disease, stage 3b Constipation, unspecified Essential (primary) hypertension History of dementia History of hyperlipidemia Iron deficiency anemia Type 2 diabetes mellitus Unspecified combined systolic (congestive) and diastolic (congestive) heart failure Surgical History Surgical History History of root canal procedure Social History Social History (Updated 09/23/23 @ 00:16 by Paty Mcclellan MD) Social History: Advanced Directive CPR per facility documentation; DPOA daughter Smoking status: Never smoker Alcohol intake: never Substance use: never Substance use type: does not use Lack of Transportation: No Lack of Food: Never True Current Housing: I Have Housing Concerned About Future Housing: No Difficulty Paying Gas/Electric Bills: No Difficulty Paying for Meds: No Currently Unemployed: No Education: Bachelor's Degree Difficulty w/ Childcare or Family Care: No Additional living arrangements comments: Moe Hoffman of [facility] since 04/15/23 Gender identity (if verbalized by the patient): Female Spiritual care concerns: No Exam Narrative: GENERAL: Chronically ill-appearing, well-nourished, and in no acute distress. HEAD: Normocephalic, a bruise right sabianism region anterior to the ear. EYES: PERRL and EOMI. ENT: Mucous membranes moist. CHEST: Clear to auscultation. No respiratory distress. HEART: Regular rate and rhythm. Normal peripheral pulses.. EXTREMITIES: Normal range of motion. No edema. SKIN: Warm, dry, no rash. NEURO: Awake alert, mumbles but cannot answer questions. Course Course Emergency Course: Discussed imaging results with family. Discussed that we did not perform CT scan given patient's hospice status and goal for comfort focused therapy. Will prescribe stool softeners for home. Family feels comfortable avoiding internal this time as patient often has viral other wound receiving treatments in her private region. Vital Signs Vital signs: Vital Signs Temperature 97.6 F 06/02/24 14:46 Pulse Rate 95 06/02/24 14:46 Respiratory Rate 18 06/02/24 14:46 Blood Pressure 186/69 H 06/02/24 14:46 Pulse Oximetry 98 06/02/24 14:46 Temperature 97.6 F 06/02/24 14:46 Pulse Rate 79 06/02/24 16:35 Respiratory Rate 18 06/02/24 16:35 Blood Pressure 159/78 H 06/02/24 16:35 Pulse Oximetry 99 06/02/24 16:35 Discharge Plan Discharge Clinical Impression: Contusion of shoulder, Constipation Patient Disposition: Home, Self-Care Condition: Stable Instructions: Constipation (ED), Contusion in Adults (ED) Additional Instructions: Return ER if you have additional care concerns that cannot be addressed by her facility. Your constipated and should be taking stool softener to prevent any worsening of the constipation. If you are not improving in the next couple of days you may require an enema. Prescriptions: New docusate sodium [Colace] 100 mg capsule 100 mg PO BID Qty: 14 0RF No Action quetiapine 25 mg tablet 25 mg PO QHS potassium chloride 10 mEq capsule, extended release 10 meq PO DAILY trazodone 100 mg tablet 100 mg PO QHS PRN nitrofurantoin 100 mg capsule 100 mg PO Q12H Rx Instructions: must administer with a meal/food alprazolam 0.5 mg tablet 0.5 mg PO QHS PRN carvedilol 12.5 mg tablet 12.5 mg PO .COMPLEX Rx Instructions: 12.5 mg orally take one tablet QAM 2 tablets QPM; must administer with a meal/food wfufqsyclhfv-axwebuzb-rlcufh Tablet 1 tablet PO DAILY cinnamon bark 500 mg capsule 500 mg PO DAILY cyclobenzaprine 5 mg tablet 5 mg PO QHS PRN (Reason: Spasms) fenofibrate nanocrystallized 145 mg tablet 145 mg PO DAILY omega 2-jjz-pvq-fish oil 500-1,000 mg capsule 1 cap PO DAILY metformin 500 mg tablet 1,000 mg PO DAILY pravastatin 20 mg tablet 20 mg PO DAILY furosemide 20 mg Tablet 20 mg PO DAILY cephalexin 500 mg capsule 500 mg PO Q12H Qty: 10 0RF Follow-up/Referrals: UNKNOWN,DOCTOR [Primary Care Provider] - 1 Week
--- NOTE | 2024-06-02 18:36 | PC.NURSE ---
Patient used bed kwok to urinate, depend was already wet when the patient stated she needed to urinate. patient cleaned, repositioned, and dry.
[2024-06-02 19:14] VITALS: BP 171/102; PULSE 91; RESP 17; TEMP 36.7; O2SAT 94
--- NOTE | 2024-06-02 19:42 | PC.NURSE ---
house truck showed up at 1941 to machine pecan picker
[2024-06-02 19:59] VITALS: TEMP 37
== END 2024-06-02 20:01 | disposition hospice, home (50) ==
PROVIDERS: Emergency Provider Emergency Medicine
DX: S40.011A Contusion of right shoulder, initial encounter (principal); K59.00 Constipation, unspecified; G30.9 Alzheimer's disease, unspecified; F02.80 Dementia in other diseases classified elsewhere, unspecified severity, without behavioral disturbance, psychotic disturbance, mood disturbance, and anxiety; F41.9 Anxiety disorder, unspecified; I13.0 Hypertensive heart and chronic kidney disease with heart failure and stage 1 through stage 4 chronic kidney disease, or unspecified chronic kidney disease; E11.22 Type 2 diabetes mellitus with diabetic chronic kidney disease; N18.32 Chronic kidney disease, stage 3b; I50.9 Heart failure, unspecified; Z79.84 Long term (current) use of oral hypoglycemic drugs; W19.XXXA Unspecified fall, initial encounter
CPT/HCPCS: 73030; 73502; 99284

== ENCOUNTER 2025-02-14 12:47 | Emergency (ER) | payer OTHER, MEDICARE, SELFPAY ==
[2025-02-14 12:53] VITALS: BP 140/73; PULSE 64; RESP 14; TEMP 36.7; O2SAT 98
--- OUTSIDE RECORDS SUMMARY | 2025-02-14 13:23 | XMS_ITS | CONTINUITY OF CARE DOCUMENT ---
Author Name jagjit danielson Address Unknown Organization [facility] Address [address] [address] [facility] [address] [place] [address] Phone [phone] Care Team Providers Care Asphalt Dauber Name Role Phone Sreedhar MONTENEGRO, Clara Unavailable KATHYA MONTENEGRO, RUNDA Unavailable [phone] KATHYA MONTENEGRO, RUNDA Unavailable PROBLEMS Condition Status Date Provider Notes Vitamin D deficiency- on meds active Yoan vergara RN EDEMA-06/04 06/04 YESSY ART DUP NEG -03/02 YESSY DUP NEG completed - Barry Green MD HTN;NEG ANGIO active Barry Green MD CHEST PAIN-07/05 NUC NL EF 5 3-03/02 NUC NL completed - Clara Eli MD PALPITATIONS, HX OF active Clara Santana CAD-09/04 CATH MILD active Clara Santana Family History of CVA or Stroke: completed - Nicholas Eli MD Family History of Hypertension: completed - Mario Eli MD Family History of Sudden Car diac : completed - Clara Eli MD Family History of CVA or Stroke: completed - Nicholas Eli MD Family History of Hypertension: completed - Mario Eli MD Family History of Sudden Car diac : completed - Clara Eli MD Obesity active Barry Green MD Hyperlipidemia active Clara Eli MD Diastolic CHF active Clara Eli MD Leg edema active Clara Eli MD CKD IIIa active Clara Eli MD Cardiology examination active Clara gamboa MD Dementia active Clara Eli MD UTI, recurrent active Clara Eil MD ENCOUNTERS Date Type Provider Location Encounter Diag nosis - In-person encounter Office Visit Clara Eli MD [facility] UTI, recurrent - In-person encounter Office Visit Clara Eli MD [facility] Dementia - In-person encounter Office Visit Clara Eli MD [facility] - In-person encounter Office Visit Clara Eli MD [facility] - In-person encounter Office Visit Clara Eli MD [facility] Cardiology examination - In-person encounter Office Visit Clara Eli MD [facility] CKD IIIa - In-person encounter Office Visit Clara Eli MD [facility] - In-person encounter Office Visit Clara Eli MD [facility] CKD IIIa - In-person encounter Office Visit Clara Eli MD [facility] Hyperlipidemia - In-person encounter Office Visit Clara Eli MD [facility] - In-person encounter Office Visit Clara Eli MD [facility] - In-person encounter Office Visit Clara Eli MD [facility] - In-person encounter Office Visit Clara Eli MD [facility] - In-person encounter Office Visit Clara Eli MD [facility] Leg edema - In-person encounter Office Visit Clara Eli MD [facility] PALPITATIONS, HX OFDiastolic CHF - In-person encounter Office Visit Clara Eli MD [facility] Hyperlipidemia - In-person encounter Office Visit Clara Eli MD [facility] - In-person encounter Office Visit Barry Green MD [facility] EDEMA-06/04 06/04 YESSY ART DUP NEG -03/02 YESSY DUP NEGHTN;NEG ANGIOObesity - In-person encounter Office Visit Clara Eli MD [facility] - In-person encounter Office Visit Clara Eli MD [facility] Family History of CVA or Stroke:Family History of Hypertension:Family History of Sudden Cardiac :Family History of CVA or Stroke:Family History of Hypertension:Family History of Sudden Cardiac : - In-person encounter Office Visit Clara Eli MD [facility] - In-person encounter Office Visit Clara Eli MD [facility] - In-person encounter Office Visit Clara Eli MD [facility] CHEST PAIN-07/05 NUC NL EF 53-03/02 NUC NL - In-person encounter Office Visit Clara Eli MD [facility] - In-person encounter Office Visit Clara Eli MD [facility] - In-person encounter Office Visit Clara Eli MD [facility] - In-person encounter Office Visit Clara Eli MD [facility] - In-person encounter Office Visit Clara Eli MD [facility] CAD-09/04 CATH MILD - In-person encounter Office Visit Clara Eli MD [facility] - In-person encounter Office Visit Clara Eli MD [facility] - In-person encounter Office Visit Clara Eli MD [facility] CAD-09/04 CATH MILD - In-person encounter Office Visit Clara Eli MD [facility] - In-person encounter Office Visit Clara Eli MD [facility] - In-person encounter Office Visit Clara Eli MD [facility] - In-person encounter Office Visit Clara Eli MD [facility] PALPITATIONS, HX OF - In-person encounter Office Visit Clara Eli MD [facility] - In-person encounter Office Visit Clara Eli MD [facility] - In-person encounter Office Visit Clara Eli MD [facility] - In-person encounter Office Visit Clara Eli MD [facility] VITAL SIGNS Date Observation Value Provider Body Mass Index (Ratio) 26.43 kg/m2 Gilberto Eli MD blood pressure, diastolic 50 mm[Hg] Chata nkLogic blood pressure, systolic 84 mm[Hg] Darlyn kLogic weight E&M 154 [lb_av] Willy da y blood pressure, cuff size regular Ja rret blood pressure, diastolic 50 mm[Hg] Ja rret blood pressure, systolic 84 mm[Hg] Jar ret pulse rate 70 /min Willy y oxygen saturation, oximetry 93 % Willy respiratory rate E&M 12 /min Willy height E&M 64 [in_i] Willy y Body Mass Index (Ratio) 30.55 kg/m2 Gilberto Eli MD blood pressure, diastolic 63 mm[Hg] July robertson Indore blood pressure, systolic 142 mm[Hg] Geronimo tony [place] oxygen saturation, oximetry 96 % Christina Cid pulse rate 72 /min Christina santana weight E&M 178 [lb_av] Christina santana respiratory rate E&M 16 /min Bessy Cid blood pressure, cuff size large July robertson Cid height E&M 64 [in_i] Christina santana blood pressure, diastolic 66 mm[Hg] Li nkLogic blood pressure, systolic 116 mm[Hg] Darlyn kLogic blood pressure, diastolic 66 mm[Hg] St ephanie Goessel blood pressure, systolic 116 mm[Hg] Pavel phanie Goessel oxygen saturation, oximetry 97 % Lisa Marco A temperature E&M 133 [degF] Lisa Lo hman respiratory rate E&M 16 /min David ie Marco A pulse rate 79 /min Lisa Lohma n blood pressure, cuff size large St ephanie Marco A height E&M 64 [in_i] Lisa Lohma n Body Mass Index (Ratio) 29.42 kg/m2 Rosalina Chase blood pressure, diastolic 78 mm[Hg] St melonie Whitt blood pressure, systolic 156 mm[Hg] Matthieu Whitt oxygen saturation, oximetry 98 % Maribeth Whitt pulse rate 75 /min Maribeth Jose Eduardo respiratory rate E&M 16 /min Maribeth Santana rishabh weight E&M 171.4 [lb_av] Maribeth Whitt height E&M 64 [in_i] Maribeth Whitt Body Mass Index (Ratio) 47.03 kg/m2 Shady Daugherty blood pressure, diastolic 68 mm[Hg] Chata [facility] blood pressure, systolic 152 mm[Hg] Darlyn [facility] respiratory rate E&M 18 /min Farnaz Ry blood pressure, cuff size regular Kacey simomns Ry blood pressure, diastolic 68 mm[Hg] Kacey maximinomohan Ry blood pressure, systolic 152 mm[Hg] Pete leonardo Raza oxygen saturation, oximetry 96 % Farnaz Ry pulse rate 68 /min Farnaz Ry weight E&M 274 [lb_av] Farnaz Ry height E&M 64 [in_i] Farnaz Ry blood pressure, diastolic 68 mm[Hg] Chata nkLog blood pressure, systolic 139 mm[Hg] Darlyn [facility] Body Mass Index (Ratio) 30.72 kg/m2 Gilberto Eli MD blood pressure, diastolic 68 mm[Hg] Sa ra Freeman blood pressure, systolic 139 mm[Hg] Hattie a Freeman respiratory rate E&M 17 /min Serena Si ms oxygen saturation, oximetry 96 % Serena Freeman pulse rate 73 /min Serena Freeman weight E&M 179 [lb_av] Serena Freeman blood pressure, cuff size regular Sa ra Freeman height E&M 64 [in_i] Serena Freeman Body Mass Index (Ratio) 30.89 kg/m2 Alexander en Barry blood pressure, diastolic 84 mm[Hg] Li nkLogic blood pressure, systolic 178 mm[Hg] Darlyn kLogic blood pressure, diastolic 84 mm[Hg] Sa ra Freeman blood pressure, systolic 178 mm[Hg] Hattie a Freeman oxygen saturation, oximetry 96 % Serena Freeman respiratory rate E&M 16 /min Serena Si ms pulse rate 64 /min Serena Freeman blood pressure, cuff size regular Sa ra Freeman weight E&M 180 [lb_av] Serena Freeman height E&M 64 [in_i] Serena Freeman Body Mass Index (Ratio) 30.89 kg/m2 Makayla ssa Puhse blood pressure, diastolic 104 mm[Hg] Li nkLogic blood pressure, systolic 160 mm[Hg] Darlyn kLogic blood pressure, diastolic 104 mm[Hg] Ca therine Neal blood pressure, systolic 160 mm[Hg] Cat herine [place] oxygen saturation, oximetry 90 % Paris [place] respiratory rate E&M 14 /min Catheri ne Neal pulse rate 70 /min Paris Neal weight E&M 180 [lb_av] Paris Neal blood pressure, cuff size regular Ca therine [place] height E&M 64 [in_i] Paris [place] Body Mass Index (Ratio) 30.21 kg/m2 Gilberto Eli MD blood pressure, diastolic 66 mm[Hg] Cy shade Nettles blood pressure, systolic 145 mm[Hg] Mckayla elvia Nettles blood pressure, cuff size regular Cy shade Nettles pulse rate 71 /min Lissette marcum oxygen saturation, oximetry 94 % Lissette Nettles respiratory rate E&M 16 /min Lissette Nettles weight E&M 176 [lb_av] Lissette marcum height E&M 64 [in_i] Lissette marcum Body Mass Index (Ratio) 31.58 kg/m2 Gilberto Eli MD blood pressure, diastolic 74 mm[Hg] [facility] blood pressure, systolic 152 mm[Hg] [facility] oxygen saturation, oximetry 94 % [facility] respiratory rate E&M 16 /min [facility] pulse rate 72 /min [facility] weight E&M 184 [lb_av] [facility] height E&M 64 [in_i] [facility] Body Mass Index (Ratio) 30.72 kg/m2 Gilberto Eli MD blood pressure, cuff size regular Ke rri Schuyler blood pressure, diastolic 80 mm[Hg] Ke rri Lázaroneflako blood pressure, systolic 120 mm[Hg] Hernesto Payan oxygen saturation, oximetry 97 % Tamara Payan respiratory rate E&M 18 /min Tamara erickson pulse rate 71 /min Tamara obandoer weight E&M 179 [lb_av] Tamara Marrero lder height E&M 64 [in_i] Tamara Marrero er Body Mass Index (Ratio) 31.41 kg/m2 Gilberto Eli MD weight E&M 183 [lb_av] Lissette Melendez trixie blood pressure, cuff size regular Cy shade Nettles blood pressure, systolic 150 mm[Hg] Mckayla Nettles blood pressure, diastolic 80 mm[Hg] Sebastien Nettles oxygen saturation, oximetry 95 % Lissette Nettles respiratory rate E&M 16 /min Lissette Nettles pulse rate 77 /min Lissette marcum height E&M 64 [in_i] Lissette marcum Body Mass Index (Ratio) 30.10 kg/m2 Guzman Shine blood pressure, diastolic 79 mm[Hg] Kristian Diaz blood pressure, systolic 139 mm[Hg] Winter Diaz oxygen saturation, oximetry 97 % Rylie Diaz respiratory rate E&M 18 /min Mayuri Diaz pulse rate 73 /min Rylie Kurt ujli weight E&M 175.4 [lb_av] Rylie Sebastian jeronimo height E&M 64 [in_i] Rylie Steve juli Body Mass Index (Ratio) 30.28 kg/m2 Gilberto Eli MD blood pressure, diastolic 78 mm[Hg] Kristian Shyannlico Diaz blood pressure, systolic 159 mm[Hg] Winter Diaz oxygen saturation, oximetry 97 % Rylie Diaz respiratory rate E&M 18 /min Mayuri Cortesenson pulse rate 72 /min Rylie Hicks juli weight E&M 176.4 [lb_av] Rylie Sebastian haleirene height E&M 64 [in_i] Rylie Hicks juli Body Mass Index (Ratio) 29.90 kg/m2 Robbin Jaimes blood pressure, resting Yes Robbin Jaimes blood pressure, diastolic 82 mm[Hg] Kristian Diaz blood pressure, systolic 160 mm[Hg] Winter Diaz oxygen saturation, oximetry 96 % Rylie Diaz respiratory rate E&M 18 /min Mayuri Diaz pulse rate 71 /min Rylie bustos weight E&M 174.2 [lb_av] Rylie haleon height E&M 64 [in_i] Rylie Hicks nson Body Mass Index (Ratio) 30.21 kg/m2 Gilberto Eli MD blood pressure, cuff size regular Ke rri Schuyler blood pressure, diastolic 68 mm[Hg] Ke rrsunitha Payan blood pressure, systolic 167 mm[Hg] Hernesto Payan oxygen saturation, oximetry 96 % Tamara Payan respiratory rate E&M 16 /min Tamara erickson pulse rate 70 /min Tamara Marrero lder weight E&M 176 [lb_av] Tamara Marrero lder height E&M 64 [in_i] Tamara Marrero lder Body Mass Index (Ratio) 30.38 kg/m2 Juan Trandall 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 blood pressure, diastolic 64 mm[Hg] Sh fabienne Diana 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 blood pressure, systolic 132 mm[Hg] She rrnilton [place] 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 pulse rate 61 /min Cecilia Diana 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 weight E&M 177 [lb_av] Cecilia Diana 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 blood pressure, diastolic 74 mm[Hg] Kristian Gadiel Diaz blood pressure, systolic 182 mm[Hg] Winter Gonzalez Diaz pulse rate 60 /min Rylie Hicks nson oxygen saturation, oximetry 97 % Rylie Joe respiratory rate E&M 16 /min Mayuri Diaz Body Mass Index (Ratio) 30.28 kg/m2 Gabriella Diaz weight E&M 176.4 [lb_av] Rylie decker blood pressure, diastolic 80 mm[Hg] Ke rri Gruenenfelder blood pressure, systolic 158 mm[Hg] Ker ri Gruenenfelder pulse rate 66 /min Tamara Gruenenfe lder oxygen saturation, oximetry 96 % Tamara Gruenenfelder respiratory rate E&M 16 /min Tamara G ruenenfelder Body Mass Index (Ratio) 31.92 kg/m2 Truong i Gruenenfelder weight E&M 186 [lb_av] Tamara Gruenenfe lder blood pressure, diastolic 75 mm[Hg] Kristian Diaz blood pressure, systolic 155 mm[Hg] Winter Diaz Body Mass Index (Ratio) 32.37 kg/m2 Gabriella Diaz pulse rate 66 /min Rylie Hicks maicoirene oxygen saturation, oximetry 97 % Rylie Diaz respiratory rate E&M 16 /min Mayuri Diaz weight E&M 188.6 [lb_av] Rylie haleon Body Mass Index (Ratio) 29.69 kg/m2 Truong i Gruenenfelder blood pressure, diastolic 70 mm[Hg] Ke rri Gruenenfelder blood pressure, systolic 132 mm[Hg] Ker ri Gruenenfelder pulse rate 70 /min Tamara Gruenenfe lder oxygen saturation, oximetry 98 % Tamara Gruenenfelder respiratory rate E&M 16 /min Tamara G ruenenfelder weight E&M 173 [lb_av] Tamara Gruenenfe lder Body Mass Index (Ratio) 29.86 kg/m2 Makayla velarde blood pressure, diastolic 76 mm[Hg] Me chan blood pressure, systolic 141 mm[Hg] Carlotta barbour pulse rate 14 /min Jessica Tellez oxygen saturation, oximetry 97 % Jessica Tellez respiratory rate E&M 14 /min Jessica Chadwick weight E&M 174 [lb_av] Jessica Tellez Body Mass Index (Ratio) 30.15 kg/m2 Truong i Schuyler blood pressure, diastolic 82 mm[Hg] Bayron mayfieldi Schuyler blood pressure, systolic 172 mm[Hg] Hernesto Payan pulse rate 68 /min Tamara Janes obandoer oxygen saturation, oximetry 98 % Tamara Payan respiratory rate E&M 15 /min Tamara erickson weight E&M 175 [lb_av] Tamara Marrero lder blood pressure, diastolic, left arm 84 mm [Hg] Bianca Stber blood pressure, systolic, left arm 162 mm [Hg] Bianca St blood pressure, diastolic, right arm 72 m m[Hg] Bianca Stue blood pressure, systolic, right arm 150 m m[Hg] Bianca Stber Body Mass Index (Ratio) 30.53 kg/m2 Kandis [address] blood pressure, diastolic 84 mm[Hg] Ta rafaela Stber blood pressure, systolic 162 mm[Hg] Vázquez ya St pulse rate 72 /min Bianca Stueber oxygen saturation, oximetry 98 % Bianca Stue respiratory rate E&M 16 /min Bianca asif weight E&M 177.2 [lb_av] Bianca Stue blood pressure, diastolic 68 mm[Hg] Benjamin Ortiz 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 blood pressure, systolic 136 mm[Hg] Talia Ortiz 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 pulse rate 74 /min Cecilia Ortiz 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 respiratory rate E&M 16 /min Cecilia Ortiz 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 weight E&M 177.8 [lb_av] Cecilia Ortiz 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 Body Mass Index (Ratio) 31.25 kg/m2 Camilo Mcadams blood pressure, diastolic, left arm 79 mm [Hg] [facility], systolic, left arm 168 mm [Hg] [facility] blood pressure, diastolic, right arm 84 m m[Hg] [facility], right arm 163 m m[Hg] [facility] blood pressure, diastolic 79 mm[Hg] Koenig blood pressure, systolic 168 mm[Hg] [facility] pulse rate 66 /min [facility] oxygen saturation, oximetry 98 % [facility] E&M 16 /min [facility] weight E&M 181.38 [lb_av] [facility] an height E&M 64 [in_i] [facility] blood pressure, coombs tolic, second observation 80 mm[Hg] Lacretia Robles 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 blood pressure, syst olic, second observation 150 mm[Hg] Lacretia Robles 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 blood pressure, cuff size large La cretia Robles 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 blood pressure, diastolic 94 mm[Hg] La cretia Robles 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 blood pressure, systolic 148 mm[Hg] Lac retia Robles 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 pulse rate 68 /min Lacretia Germain s 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 weight E&M 182 [lb_av] Lacretia Germain s 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 blood pressure, diastolic 80 mm[Hg] Malcolm Quevedo RN blood pressure, systolic 170 mm[Hg] Yoan Majanos RN pulse rate 72 /min Yoan Majanos RN oxygen saturation, oximetry 95 % Yoan Majanos RN respiratory rate E&M 18 /min Yoan rivearcherelle RN weight E&M 184 [lb_av] Yoan Majanos RN oxygen saturation, oximetry 97 % [facility] blood pressure, diastolic 98 mm[Hg] [facility] [place] blood pressure, systolic 157 mm[Hg] [facility] pulse rate 136 /min [facility] Body Mass Index (Ratio) 33.42 kg/m2 Camilo mims Mcadams weight in kilograms E&M 85.45 kg [facility] felicita [place] weight E&M 188 [lb_av] [facility] [place] height E&M 63 [in_i] [facility] height in centimeters E&M 160.02 cm [facility] [place] blood pressure, diastolic, right arm 90 m m[Hg] Lacretia Robles 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 blood pressure, systolic, right arm 144 m m[Hg] Lacretia Robles 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 blood pressure, coombs tolic, second observation 90 mm[Hg] Lacretia Robles 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 blood pressure, syst olic, second observation 140 mm[Hg] Lacretia Robles 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 blood pressure, diastolic 100 mm[Hg] La cretia Robles 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 blood pressure, systolic 170 mm[Hg] Lac retia Robles 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 pulse rate 68 /min Lacretia Germain s 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 Body Mass Index (Ratio) 33.92 kg/m2 Lacr etia Robles 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 weight E&M 189.6 [lb_av] Lacretia Reza ls 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 Body Mass Index (Ratio) 33.35 kg/m2 Omer Sorenson blood pressure, diastolic, left arm 78 mm [Hg] [facility] blood pressure, systolic, left arm 150 mm [Hg] [facility] blood pressure, diastolic, right arm 78 m m[Hg] [facility] blood pressure, systolic, right arm 148 m m[Hg] [facility] blood pressure, diastolic 78 mm[Hg] Shital seph [facility] blood pressure, systolic 148 mm[Hg] Boni [facility] pulse rate 71 /min [facility] oxygen saturation, oximetry 94 % [facility] respiratory rate E&M 20 /min [facility] weight E&M 186.4 [lb_av] [facility] height E&M 62.8 [in_i] [facility] Body Mass Index (Ratio) 33.60 kg/m2 [facility] blood pressure, diastolic, left arm 86 mm [Hg] [facility] blood pressure, systolic, left arm 191 mm [Hg] [facility] blood pressure, diastolic, right arm 102 mm[Hg] [facility] blood pressure, systolic, right arm 167 m m[Hg] [facility] blood pressure, diastolic 86 mm[Hg] Noel [place] blood pressure, systolic 191 mm[Hg] [facility] [place] pulse rate 59 /min [facility] oxygen saturation, oximetry 98 % [facility] respiratory rate E&M 16 /min [facility] weight E&M 189 [lb_av] [facility] height E&M 63 [in_i] [facility] blood pressure, diastolic, left arm 70 mm [Hg] Monica Silva blood pressure, systolic, left arm 130 mm [Hg] Monica Silva blood pressure, diastolic, right arm 70 m m[Hg] Monica Silva blood pressure, systolic, right arm 126 m m[Hg] Monica Silva blood pressure, diastolic 70 mm[Hg] Jonnie Silva blood pressure, systolic 126 mm[Hg] Jonathan yepez Silva pulse rate 58 /min Monica Silva oxygen saturation, oximetry 99 % Monica Silva respiratory rate E&M 18 /min [facility] weight E&M 183 [lb_av] [facility] blood pressure, diastolic, left arm 98 mm [Hg] [facility] blood pressure, systolic, left arm 214 mm [Hg] [facility] blood pressure, diastolic, right arm 96 m m[Hg] [facility] blood pressure, systolic, right arm 210 m m[Hg] [facility] pulse rate 60 /min [facility] oxygen saturation, oximetry 98 % [facility] respiratory rate E&M 16 /min [facility] weight E&M 183 [lb_av] [facility] blood pressure, diastolic 70 mm[Hg] Bear Barry blood pressure, systolic 128 mm[Hg] Abhishek jenniferdick Baryr pulse rate 66 /min Camila Barry oxygen saturation, oximetry 96 % Camila Barry respiratory rate E&M 16 /min Christian Barry weight E&M 193 [lb_av] Camila Barry blood pressure, diastolic 82 mm[Hg] Malcolm Quevedo RN blood pressure, systolic 153 mm[Hg] Yoan Quevedo RN pulse rate 74 /min Yoan Quevedo RN oxygen saturation, oximetry 97 % Yoan Quevedo RN respiratory rate E&M 16 /min Yoan patel RN weight E&M 180 [lb_av] Yoan Quevedo RN blood pressure, coombs tolic, second observation 88 mm[Hg] [facility], syst olic, second observation 180 mm[Hg] [facility] pulse rate 80 /min [facility] oxygen saturation, oximetry 98 % [facility] rate E&M 16 /min [facility] blood pressure, diastolic 94 mm[Hg] Shital seph [place] blood pressure, systolic 192 mm[Hg] Boni eph [place] ALLERGIES Allergy Name Onset Date Reaction Criticality Status SULFA Low Criticality active RESULTS Date Observation Value Provider Reference Range Interpretation Location hemoglobin A1C, blood, as % of total hemoglobin 6.0 % [facility] 4.8-5.6 High platelet count 240 X10E3/UL [facility] [phone]/03 /12 red blood cell distribution width 12.8 % [facility] 11.7-15.4 mean corpuscular hemoglobin concentration, RBC 32.6 G/DL [facility] 31.5-35.7 mean corpuscular hemoglobin, RBC 29.9 pg [facility] 26.6-33.0 mean corpuscular volume, RBC 92 fL [facility] 79-97 hematocrit, blood 38.6 % [facility] 34.0-46.6 hemoglobin, blood 12.6 g/dL [facility] 11.1-15.9 erythrocyte (RBC) count 4.22 X10E6/UL [facility] 3.77-5.28 leukocyte count, blood 5.7 X10E3/UL [facility] 3.4-10.8 lipoprotein, beta, serum, point, quantitative, calculated 70 mg/dL [facility] 0-99 HDL cholesterol, serum 45 mg/dL [facility] >39 triglyceride, serum, random 88 mg/dL [facility] 0-149 cholesterol, serum 132 mg/dL [facility] [phone]/03 /12 alanine aminotransferase (SGPT), serum 24 1/L [facility] 0-32 aspartate aminotransferase (SGOT), serum 45 1/L [facility] 0-40 High alkaline phosphatase, serum 47 1/L [facility] 39-117 bilirubin, serum, total 0.5 mg/dL [facility] 0.0-1.2 albumin/globulin ratio, serum 1.7 [facility] 1.2-2.2 globulin, serum 2.6 [facility] 1.5-4.5 albumin, serum 4.3 g/dL [facility] 3.7-4.7 protein, total, serum 6.9 g/dL [facility] 6.0-8.5 calcium, serum 9.9 mg/dL [facility] 8.7-10.3 carbon dioxide, venous blood 25 mmol/L [facility] 20-29 chloride, serum 101 mmol/L [facility] 96-106 potassium, serum 3.8 mmol/L [facility] 3.5-5.2 sodium, serum 141 mmol/L [facility] [phone]/03 /12 urea nitrogen/creatinine ratio, serum 18 [facility] 12-28 eGFR if 48 mL/min/{1.73_ m2} [facility] >59 Low eGFR if not 42 mL/min/{1.73_ m2} [facility] >59 Low creatinine, serum 1.25 mg/dL [facility] 0.57-1.00 High urea nitrogen, blood 22 mg/dL [facility] 8-27 blood glucose, random 123 mg/dL [facility] 65-99 High B-type natriuretic peptide 23.8 pg/mL [facility] 0.0-100.0 hemoglobin A1C, blood, as % of total hemoglobin 5.9 % [facility] 4.8-5.6 High microalbumin/creati nine ratio, urine 6.9 MG/G CREAT [facility] 0.0-30.0 microalbumin, random, urine 1.36 mg/dL [facility] Units converted. See lab report for original value. creatinine, random, urine 196.7 mg/dL [facility] Not Estab. calcium, serum 9.8 mg/dL [facility] 8.7-10.3 carbon dioxide, venous blood 29 mmol/L [facility] 20-29 chloride, serum 101 mmol/L [facility] 96-106 potassium, serum 3.7 mmol/L [facility] 3.5-5.2 sodium, serum 143 mmol/L [facility] [phone]/03 /30 urea nitrogen/creatinine ratio, serum 16 [facility] 12-28 eGFR if 47 mL/min/{1.73_ m2} [facility] >59 Low eGFR if not 41 mL/min/{1.73_ m2} [facility] >59 Low creatinine, serum 1.27 mg/dL [facility] 0.57-1.00 High urea nitrogen, blood 20 mg/dL [facility] 8-27 blood glucose, random 129 mg/dL [facility] 65-99 High reticulocyte count, corrected 1.0 % [facility] 0.6-2.6 ferritin, serum 179 ng/mL [facility] 15-150 High B-12, serum 669 pg/mL [facility] [phone]/08 /29 pro brain natriuretic peptide 131 pg/mL [facility] 0-301 iron saturation percent, serum 22 % [facility] 15-55 iron, serum 98 ug/dL [facility] 27-139 iron binding capacity, unsaturated 346 ug/dL [facility] [phone]/08 /29 iron binding capacity, total 444 ug/dL [facility] [phone]/08 /29 basophil count, absolute 0.1 x10E3/uL [facility] 0.0-0.2 Eosinophil Absolute Count 0.1 X10E3/UL [facility] 0.0-0.4 monocyte count, blood, automated 0.3 X10E3/UL [facility] 0.1-0.9 lymphocyte count, blood, automated 1.0 X10E3/UL [facility] 0.7-3.1 Absolute Neutrophils 4.1 X10E3/UL [facility] 1.4-7.0 basophils as percent of blood leukocytes 1 % [facility] eosinophils as percent of blood leukocytes 2 % [facility] monocytes as percent of blood leukocytes 6 % [facility] lymphocytes as percent of blood leukocytes 18 % [facility] neutrophils as percent of blood leukocytes 73 % [facility] platelet count 338 X10E3/UL [facility] [phone]/08 /29 red blood cell distribution width 13.1 % [facility] 12.3-15.4 mean corpuscular hemoglobin concentration, RBC 32.1 G/DL [facility] 31.5-35.7 mean corpuscular hemoglobin, RBC 28.6 pg [facility] 26.6-33.0 mean corpuscular volume, RBC 89 fL [facility] 79-97 hematocrit, blood 38.0 % [facility] 34.0-46.6 hemoglobin, blood 12.2 g/dL [facility] 11.1-15.9 erythrocyte (RBC) count 4.27 X10E6/UL [facility] 3.77-5.28 leukocyte count, blood 5.7 X10E3/UL [facility] 3.4-10.8 alanine aminotransferase (SGPT), serum 10 1/L [facility] 0-32 aspartate aminotransferase (SGOT), serum 17 1/L [facility] 0-40 alkaline phosphatase, serum 47 1/L [facility] 39-117 bilirubin, serum, total 0.5 mg/dL [facility] 0.0-1.2 albumin/globulin ratio, serum 1.8 [facility] 1.2-2.2 globulin, serum 2.5 [facility] 1.5-4.5 albumin, serum 4.5 g/dL [facility] 3.5-4.8 protein, total, serum 7.0 g/dL [facility] 6.0-8.5 calcium, serum 9.9 mg/dL [facility] 8.7-10.3 carbon dioxide, venous blood 26 mmol/L [facility] 18-29 chloride, serum 97 mmol/L [facility] 96-106 potassium, serum 4.2 mmol/L [facility] 3.5-5.2 sodium, serum 141 mmol/L [facility] [phone]/08 /29 urea nitrogen/creatinine ratio, serum 21 [facility] 12-28 eGFR if not 47 mL/min/{1.73_ m2} [facility] >59 Low creatinine, serum 1.14 mg/dL [facility] 0.57-1.00 High urea nitrogen, blood 24 mg/dL [facility] 8-27 blood glucose, random 101 mg/dL [facility] 65-99 High B-12, serum 714 pg/mL [facility] [phone]/11 /22 pro brain natriuretic peptide 530 pg/mL [facility] 0-301 High free thyroxine index 2.7 [facility] 1.2-4.9 triiodothyronine resin uptake 31 % [facility] 24-39 thyroxine, serum, total 8.6 ug/dL [facility] 4.5-12.0 thyroid stimulating hormone, serum 1.410 u[IU]/mL [facility] 0.450-4.500 lipoprotein, beta, serum, point, quantitative, calculated 78 mg/dL [facility] 0-99 very low density lipoproteins 26 mg/dL [facility] 5-40 HDL cholesterol, serum 42 mg/dL [facility] >39 triglyceride, serum, random 131 mg/dL [facility] 0-149 cholesterol, serum 146 mg/dL [facility] [phone]/02 /12 LDL/HDL (low-density lipoprotein/high-de nsity lipoprotein) ratio 1.5 RATIO [facility] 0.2-4.3 Normal VLDL cholesterol 27 mg/dL [facility] 8-41 Normal lipoprotein, beta, serum, point, quantitative, calculated 67 mg/dL [facility] 0-130 Normal cholesterol/HDL ratio, serum, percent 3.1 ratio [facility] 1.5-5.6 Normal HDL cholesterol, serum 45 mg/dL [facility] 65 Low triglyceride, serum, fasting 137 mg/dL [facility] Normal cholesterol, serum 139 mg/dL [facility] 0-199 Normal creatinine, serum 1.31 mg/dL [facility] potassium, serum 4.4 mmol/L [facility] sodium, serum 141 mmol/L [facility] creatinine, serum 1.04 mg/dL [facility] potassium, serum 4.7 mmol/L [facility] sodium, serum 142 mmol/L [facility] blood glucose, fasting 112 mg/dL [facility] creatinine, serum 1.03 mg/dL [facility] urea nitrogen, blood 21 mg/dL [facility] carbon dioxide, serum, total 27 mmol/L [facility] chloride, serum 105 mmol/L [facility] potassium, serum 4.3 mmol/L [facility] sodium, serum 146 mmol/L [facility] blood glucose, fasting 112 mg/dL [facility] creatinine, serum 1.03 mg/dL [facility] urea nitrogen, blood 21 mg/dL [facility] carbon dioxide, serum, total 27 mmol/L [facility] chloride, serum 105 mmol/L [facility] potassium, serum 4.3 mmol/L [facility] sodium, serum 146 mmol/L [facility] blood glucose, fasting 100 mg/dL [facility] creatinine, serum 1.26 mg/dL [facility] urea nitrogen, blood 24 mg/dL [facility] carbon dioxide, serum, total 28 mmol/L [facility] chloride, serum 102 mmol/L [facility] potassium, serum 4.9 mmol/L [facility] sodium, serum 144 mmol/L [facility] creatinine, serum 1.03 mg/dL [facility] potassium, serum 4.3 mmol/L [facility] sodium, serum 146 mmol/L [facility] platelet count 359 10*3/mm3 [facility] hematocrit, blood 42.4 % [facility] international normalized ratio (INR) 1.0 [facility] creatinine, serum 0.80 mg/dL [facility] potassium, serum 3.8 mmol/L [facility] sodium, serum 147 mmol/L Bre[facility] Bear yeast identified on urinalysis No Breann Bear mucus on urinalysis Yes Breann Bear urine crystals, microscopic Many Breann Bear epithelial cells, urine, per microscopy moderate Breann Bear casts, urine Occasional Breann Bear WBC urine on microscopy 5-8 Breann Bear bacteria, urine microscopy Many Breann Bear RBC urine by microscopy None Breann Bear leukocyte esterase, urine, by dipstick Negative Breann Bear urobilinogen, urine, semiquantitative (dipstick) Normal Breann Bear nitrite, urine, semiquantitative Negative [facility] RBC, urine, dipstick Negative [facility] bilirubin, urine Negative [facility] ketones, urine, by test strip Negative [facility] glucose, urine, semiquantitative Normal [facility] protein, urine, semiquantitative (dipstick) Negative [facility] pH, urine, semiquantitative 5.0 [facility] specific gravity, urine 1.025 [facility] urine color Yellow [facility] appearance, urine Hazy [facility] aldosterone, serum 5 1/L [facility] creatinine, random, urine 137.4 mg/dL [facility] hyaline casts, urine 0-5 [facility] NONE SEEN Abnormal bacteria, urine microscopy NONE SEEN [facility] NONE SEEN Normal epithelial cells, urine 10-20 [facility] < OR = 5 Abnormal RBC urine by microscopy 0-3 [facility] < OR = 3 Normal WBC urine on microscopy 10-20 /HPF [facility] < OR = 5 Abnormal leukocyte esterase, urine, by dipstick 2+ [facility] NEGATIVE Abnormal nitrite, urine, semiquantitative NEGATIVE [facility] NEGATIVE Normal protein, urine, semiquantitative (dipstick) NEGATIVE [facility] NEGATIVE Normal blood in urine (hemoglobin) by dipstick NEGATIVE [facility] NEGATIVE Normal ketones, urine, by test strip NEGATIVE [facility] NEGATIVE Normal bilirubin, urine NEGATIVE [facility] NEGATIVE Normal glucose, urine, semiquantitative NEGATIVE [facility] NEGATIVE Normal pH, urine, semiquantitative 5.5 [facility] 5.0-8.0 Normal specific gravity, urine 1.029 [facility] 1.001-1.035 Normal appearance, urine CLOUDY [facility] CLEAR Abnormal urine color YELLOW [facility] YELLOW Normal HISTORY OF MEDICATION USE Medication Status Instructions Dates Provider Indications Com ments Klor-Con M20 20 mEq tablet,ER particles/crystals active Take 1 tablet by mouth once a day 11/06 Fifi Hdez RN furosemide 20 mg tablet active Take 1 tablet by mouth once a day 11/06 Fifi Hdez RN fenofibrate nanocrystallized 145 mg tablet active TAKE 1 TABLET BY MOUTH DAILY 11/04 [facility] pravastatin 20 mg tablet active TAKE 1 TABLET BY MOUTH DAILY 11/04 Willy carvedilol 12.5 mg tablet active TAKE 1 TABLET BY MOUTH IN THE MORNING AND 2 TABLETS BY MOUTH IN THE AFTERNOON 11/04 [facility] alprazolam 0.5 mg tablet active [facility] iron 325 mg (65 mg iron) tablet active Willy furosemide 40 mg tablet completed - Clara Eli MD potassium chloride 10 mEq tablet extended release completed - 11/06 Fifi Hdez RN quetiapine 25 mg tablet active trazodone 100 mg tablet active Willy carvedilol 12.5 mg tablet completed Take 1 tablet by mouth twice a day 11/20 - 11/04 [facility] aspirin 81 mg tablet,delayed release (DR/EC) completed 1 tablet by mouth once a day 11/08 Amanda ECHEVARRIAP pravastatin 20 mg tablet completed TAKE 1 TABLET BY MOUTH DAILY 03/06 - 11/04 Willy Edarbyclor 40-25 mg tablet completed TAKE 1 TABLET BY MOUTH DAILY 02/27 - Clara Eli MD fenofibrate nanocrystallized 145 mg tablet completed TAKE 1 TABLET BY MOUTH DAILY 02/27 - 11/04 [facility] nifedipine 30 mg tablet extended release completed Take 1 tablet by mouth once a day 01/18 - 0 Clara Eli MD pravastatin 20 mg tablet completed Take 1 tablet by mouth once a day 03/22 - 03/06 Chloe Caal metformin 500 mg tablet active once a day Rylie Diaz carvedilol 12.5 mg tablet completed TAKE 1 TABLET BY MOUTH IN THE MORNING AND 2 TABLETS IN THE AFTERNOON 11/16 - 11/20 Tamara Payan VITAMIN D TABLET active Take 1 once a day 10/13 Tamara Payan CINNAMON 500 MG TABS active 2 once a day 10/07 Clara Eli MD Edarbyclor 40-25 mg tablet completed Take 1 tablet by mouth once a day 05/03 - 02/27 Beena Cobos TRIBENZOR 40-5-12.5 MG ORAL TABLET completed One tab daily 05/14 - 04/17 Bianca Stueber ALDACTONE 25 MG ORAL TABLET completed PO two tablets daily - 04/17 Tamara Payan HYDROCHLOROTHIAZIDE 25 MG ORAL TABLET completed ONE TAB DAILY 11/20 - 05/14 Clara Eli MD EXFORGE 5-320 MG ORAL TABLET completed ONE TAB. DAILY - 05/14 Clara Eli MD HYDROCHLOROTHIAZIDE 25 MG ORAL TABLET completed 1 tablet by mouth daily - Yoan Quevedo RN Fish Oil 360-1,200 mg capsule active 1 capsule once a day 11/15 Clara Eli MD fenofibrate nanocrystallized 145 mg tablet completed Take 1 tablet by mouth once a day 11/16 - 02/27 Beena Cobos aspirin 81 mg tablet,delayed release (DR/EC) completed 1 tablet by mouth once a day 10/02 - 11/08 Amanda ECHEVARRIAP Centrum Silver 0.4-300-250 mg-mcg-mcg tablet active 1 tablet by mouth once a day [place] LISINOPRIL 40 MG ORAL TABLET completed ONE TAB. DAILY - Yoan Quevedo RN ATENOLOL 50 MG ORAL TABLET completed half tab in the AM and full tab in the PM. 10/06 - 10/02 Barry Green MD METFORMIN HCL 500 MG ORAL TABLET completed 1 tablet by mouth daily 10/13 - 10/02 Barry Green MD SOCIAL HISTORY Date Observation Value Provider social history reviewed E&M revi ewed - no changes required Clara Eli MD social history E&M Marital Statu s: L mark alone E thnicity: Smoking History: P amanda has never smoked. Clara Eli MD social history reviewed E&M revi ewed - no changes required Clara Eli MD exercise type walking Christina Davis nd physical exercise, frequency, days per week 3 /wk Christina iCd caffeine use, averag e drinks per day no Christina Cid passive cigarette sm gagan exposure no Christina Cid smoking status Never smoker Christina [place] harvey alcohol use no Amanda Ac corina [facility] exercise type walking Lisa Manrique mohan physical exercise, frequency, days per week 3 /wk Lisa Strickland caffeine use, averag e drinks per day no Lisa Strickland passive cigarette sm gagan exposure no Lisa Strickland smoking status Never smoker Lisa holland social history E&M Marital Statu s: L mark alone E thnicity: Smoking History: P amanda has never smoked. Angie Chase social history reviewed E&M revi ewed - no changes required Angie Chase exercise type walking Maribeth Whitt physical exercise, frequency, days per week 3 /wk Maribeth Jose Eduardo caffeine use, averag e drinks per day no Maribeth Jose Eduardo passive cigarette sm gagan exposure no Maribeth Jose Eduardo smoking status Never smoker Maribeth Whitt social history E&M Marital Statu s: L mark alone E thnicity: Smoking History: P amanda has never smoked. Clara Eli MD exercise type walking Clara Eli MD physical exercise, frequency, days per week 3 /wk Clara Eli MD caffeine use, averag e drinks per day no Clara Eli MD passive cigarette sm gagan exposure no Clara Eli MD smoking status Never smoker Clara gamboa MD social history reviewed E&M revi ewed - no changes required Clara Eli MD social history E&M Marital Statu s: L mark alone E thnicity: Smoking History: P amanda has never smoked. Clara Eli MD exercise type walking Clara Eli MD physical exercise, frequency, days per week 3 /wk Clara Eli MD caffeine use, averag e drinks per day no Clara Eli MD passive cigarette sm gagan exposure no Clara Eli MD smoking status Never smoker Clara gamboa MD social history reviewed E&M revi ewed - no changes required Clara Eli MD social history reviewed E&M revi ewed - no changes required Clara Eli MD social history E&M Marital Statu s: L mark alone E thnicity: Smoking History: P amanda has never smoked. Clara Eli MD social history reviewed E&M revi ewed - no changes required Clara Eli MD exercise type walking [place] physical exercise, frequency, days per week 3 /wk [place] caffeine use, averag e drinks per day no [place] Neal passive cigarette sm gagan exposure no [place] smoking status Never smoker [place] Sonya s social history E&M Marital Statu s: L mark alone E thnicity: Smoking History: Eldon patel has never smoked. Clara Eli MD social history reviewed E&M revi ewed - no changes required Clara Eli MD exercise type walking Lissette carroll physical exercise, frequency, days per week 3 /wk Lissette Nettles caffeine use, averag e drinks per day no Lissette Tho passive cigarette sm gagan exposure no Lissette Nettles smoking status Never smoker Lissette Sanchezmelyssa gilbert social history E&M Marital Statu s: L mark alone E thnicity: Smoking History: Eldon patel has never smoked. Clara Eli MD social history reviewed E&M revi ewed - no changes required Clara Eli MD exercise type walking [facility] physical exercise, frequency, days per week 3 /wk [facility] caffeine use, averag e drinks per day no [facility] passive cigarette sm gagan exposure no [facility] smoking status Never smoker [facility] social history E&M Marital Statu s: L mark alone E thnicity: Smoking History: Eldon patel has never smoked. Clara Eli MD social history reviewed E&M revi ewed - no changes required Clara Eli MD exercise type walking Tamara munoz physical exercise, frequency, days per week 3 /wk Tamara Payan alcohol use, average drinks per day none Tamara Payan alcohol use no Tamara luo caffeine use, averag e drinks per day no Tamara Payan drug use none Tamara Marrero lder passive cigarette sm gagan exposure no Tamara Martinpriteshhollie smoking status Never smoker Tamara pettit social history E&M Marital Statu s: L mark alone E thnicity: Smoking History: P amanda has never smoked. Clara Eli MD social history reviewed E&M revi ewed - no changes required Clara Eli MD exercise type walking Lissette Patricia carroll physical exercise, frequency, days per week 3 /wk Lissette Nettles alcohol use, average drinks per day none Lissette Nettles alcohol use no Lissette Al marcum caffeine use, averag e drinks per day no Lissette Nettles drug use none Lissette Sanchezcricket l passive cigarette sm gagan exposure no Lissette Tho smoking status Never smoker Lissette Bev gilbert social history reviewed E&M revi ewed - no changes required Clara Eli MD exercise type walking Rylie Sebastian jeronimo physical exercise, frequency, days per week 3 /wk Rylie Diaz alcohol use, average drinks per day none Rylie Diaz alcohol use no Rylie Cortese maicoon caffeine use, averag e drinks per day no Rylie Diaz drug use none Rylie Kurt nson passive cigarette sm gagan exposure no Rylie Diaz smoking status Never smoker Rylie Dolan number of grandchildren Clara Eli MD social history reviewed E&M revi ewed - no changes required Clara Eli MD exercise type walking Rylie Sebastian jeronimo physical exercise, frequency, days per week 3 /wk Rylie Diaz alcohol use, average drinks per day none Rylie Diaz alcohol use no Rylie bustos caffeine use, averag e drinks per day no Rylie Diaz drug use none Rylie bustos passive cigarette sm gagan exposure no Rylie Diaz smoking status Never smoker Rylie Dolan social history reviewed E&M revi ewed - no changes required Peter Jaimes social history E&M Marital Statu s: L mark alone E thnicity: Smoking History: P amanda has never smoked. Peter Jaimes exercise type walking Rylie decker physical exercise, frequency, days per week 3 /wk Rylie Diaz alcohol use, average drinks per day none Rylie Diaz alcohol use no Rylie bustos caffeine use, averag e drinks per day no Rylie Diaz drug use none Rylie bustos passive cigarette sm gagan exposure no Rylie Diaz smoking status Never smoker Rylie Dolan social history E&M Marital Statu s: L mark alone E thnicity: Smoking History: P amanda has never smoked. 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 Barry Green MD social history reviewed E&M revi ewed - no changes required Barry Green MD exercise type walking Rylie Sebastian jeronimo physical exercise, frequency, days per week 3 /wk RylieMargy Diaz alcohol use, average drinks per day none Rylie Diaz alcohol use no Rylie Hicks maicoon caffeine use, averag e drinks per day no RylieMargy Diaz drug use none Rylie Kurt maicoon passive cigarette sm gagan exposure no Ryile Diaz smoking status Never smoker Rylie Dolan social history E&M Marital Statu s: L mark alone E thnicity: Smoking History: Eldon patel has never smoked. Clara Eli MD social history reviewed E&M revi ewed - no changes required Clara Eli MD alcohol use no Tamara Marrero topherer smoking status Never smoker Tamara Mcdonald hodan social history E&M Marital Statu s: L mark alone E thnicity: Smoking History: Eldon patel has never smoked. Clara Eli MD social history reviewed E&M revi ewed - no changes required Clara Eli MD exercise type walking Rylie Sebastian jeronimo physical exercise, frequency, days per week 3 /wk Rylie Diaz alcohol use, average drinks per day none Rylie Diaz alcohol use no Rylie Kurt maicoon caffeine use, averag e drinks per day no Rylie Diaz drug use none Rylie Hicks juli passive cigarette sm gagan exposure no Rylie Diaz smoking status Never smoker Rylie Dolan social history reviewed E&M revi ewrosa maria - no changes required Clara Eli MD alcohol use no Tamraa Marrero topherer smoking status Never smoker Tamara Mcdonald hodan social history reviewed E&M revi ewed - no changes required Clara Eli MD exercise type walking Jessica Tellez physical exercise, frequency, days per week 3 /wk Jessica Chadwickann alcohol use, average drinks per day none Jessica Chadwickann caffeine use, averag e drinks per day no Jessica Chadwickann drug use none Jessica Tellez passive cigarette sm gagan exposure no Jessica Tellez smoking status Never smoker Jessica Quiroga n social history reviewed E&M reviewed Yoan Quevedo RN social history reviewed E&M reviewed Clara Eli MD social history reviewed E&M reviewed Yoan Quevedo RN social history reviewed E&M reviewed Yoan Quevedo RN social history reviewed E&M reviewed Yoan Quevedo RN social history reviewed E&M reviewed Yoan Quevedo RN smoking status never smoker Tarik Brink els 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 social history reviewed E&M reviewed Tarik Robles NP social history reviewed E&M reviewed Yoan Quevedo RN smoking status never smoker Tarik Brink els 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 social history reviewed E&M reviewed Tarik Robles 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 social history reviewed E&M reviewed Yoan Quevedo RN drug use none Felipa Blunt passive cigarette sm gagan exposure no Dexter Hollandacoeldon physical exercise, frequency, days per week 3 /wk Dexter Hollandacoeldon exercise type walking Dexter Manacoeldon social history reviewed E&M reviewed Yoan Quevedo RN smoking status never smoker Kaushik preston social history reviewed E&M reviewed Yoan Quevedo RN social history reviewed E&M reviewed Clara Eli MD drug use none Clara Eli MD social history reviewed E&M reviewed Clara Eli MD social history reviewed E&M reviewed Yoan Quevedo RN social history E&M Marital Statu s: L mark alone E thnicity: Yoan Quevedo RN social history reviewed E&M reviewed Yoan Quevedo RN physical exercise, frequency, days per week yes [facility] caffeine use, averag e drinks per day no [facility] alcohol use, average drinks per day none [facility] smoking status Non-smoker [facility] FUNCTIONAL STATUS Date Observation Value Provider HRA, CV Assess/Plan, Angina (inactive) Management Plan continue current therapy Clara Eli MD HRA, CV Assess/Plan, Angina (inactive) Management Plan continue current therapy Clara Eli MD HRA, CV Assess/Plan, Angina (inactive) Management Plan continue current therapy Amanda DE LA PAZ HRA, CV Assess/Plan, Angina (inactive) Management Plan continue current therapy Angie Chase HRA, CV Assess/Plan, Angina (inactive) Management Plan continue current therapy Clara Eli MD HRA, CV Assess/Plan, Angina (inactive) Management Plan continue current therapy Clara Eli MD HRA, CV Assess/Plan, Angina (inactive) Management Plan continue current therapy Clara Eli MD HRA, CV Assess/Plan, Angina (inactive) Management Plan continue current therapy Clara Eli MD HRA, CV Assess/Plan, Angina (inactive) Management Plan continue current therapy Austin Kyte HRA, CV Assess/Plan, Angina (inactive) Management Plan continue current therapy Clara Eli MD HRA, CV Assess/Plan, Angina (inactive) Management Plan continue current therapy Clara Eli MD HRA, CV Assess/Plan, Angina (inactive) Management Plan continue current therapy Clara Eli MD HRA, CV Assess/Plan, Angina (inactive) Management Plan continue current therapy Clara Eli MD HRA, CV Assess/Plan, Angina (inactive) Management Plan continue current therapy Clara Eli MD HRA, CV Assess/Plan, Angina (inactive) Management Plan continue current therapy Clara Eli MD HRA, CV Assess/Plan, Angina (inactive) Management Plan continue current therapy Clara Eli MD MENTAL STATUS Date Observation Value Provider assessment of judgme nt and insight E&M Alert and oriented to time, place and person. Mood and affect are normal. Yoan Quevedo RN assessment of judgme nt and insight E&M Alert and oriented to time, place and person. Mood and affect are normal. Clara Eli MD assessment of judgme nt and insight E&M Alert and oriented to time, place and person. Mood and affect are normal. Yoan Quevedo RN assessment of judgme nt and insight E&M Alert and oriented to time, place and person. Mood and affect are normal. Yoan Quevedo RN assessment of judgme nt and insight E&M Alert and oriented to time, place and person. Mood and affect are normal. Cecilia Ortiz NP assessment of judgme nt and insight E&M Alert and oriented to time, place and person. Mood and affect are normal. Yoan Quevedo RN assessment of judgme nt and insight E&M Alert and oriented to time, place and person. Mood and affect are normal. Yoan Quevedo RN assessment of judgme nt and insight E&M Alert and oriented to time, place and person. Mood and affect are normal. Tarik Robles NP assessment of judgme nt and insight E&M Alert and oriented to time, place and person. Mood and affect are normal. Yoan Quevedo RN assessment of judgme nt and insight E&M Alert and oriented to time, place and person. Mood and affect are normal. Tarik Robles NP assessment of judgme nt and insight E&M Alert and oriented to time, place and person. Mood and affect are normal. Yoan Quevedo RN assessment of judgme nt and insight E&M Alert and oriented to time, place and person. Mood and affect are normal. Yoan Quevedo RN assessment of judgme nt and insight E&M Alert and oriented to time, place and person. Mood and affect are normal. Yoan Quevedo RN assessment of judgme nt and insight E&M Alert and oriented to time, place and person. Mood and affect are normal. Clara Eli MD assessment of judgme nt and insight E&M Alert and oriented to time, place and person. Mood and affect are normal. Clara Eli MD assessment of judgme nt and insight E&M Alert and oriented to time, place and person. Mood and affect are normal. Yoan Quevedo RN assessment of judgme nt and insight E&M Alert and oriented to time, place and person. Mood and affect are normal. Yoan Quevedo RN FAMILY HISTORY Family Member Condition Mother AR female <65 Mother Family History of Di abetes: Father Family History of Melendez dden Cardiac : Father Family History of Co ngestive Heart Failure: Father Family History of Hy pertension: Father Family History of CV A or Stroke: Mother Family History of Melendez dden Cardiac : Mother Family History of Co ngestive Heart Failure: Mother Family History of Hy pertension: Mother Family History of CV A or Stroke: INSURANCE PROVIDERS Payer name Policy type / Coverage type Adrien red green party ID [employer] MEDICARE ADVANTAGE HMO-POS HMO [id number] ADVANCE DIRECTIVES Name Date DISCUSSED - NO DECISION MADE TREATMENT PLAN Date Name Performer [id number],W, N eeds to have incontinence pads changed regularly to limit to risk of recurrent UTI. Clara Eli MD [id number],S, C linically compensated. Last echo showed EF of 65%. Clara Eli MD [id number],C, C hest pain free. Clara Eli MD [id number],W, B P is low. Down 25 lbs. Will stop lasix, nifedipine, and edarbyclor, and will reduce carvedilol to 12.5mg BID. BP needs to be checked twice daily at the care home. I spoke with the [facility] which provides the medications to her care home and detailed the changes we are making today. Clara Eli MD [id number],C,B P elevated today at 142/63. Advised reduced sodium intake and routine monitoring of the blood pressure. We aim for less than 130/80. She has been cutting one of her blood pressure medications in half. She and her daughter are not sure whether it was the nifedipine or the Coreg. I will reduce her Coreg today to 6.125 mg BID and await the daughter's call informing us which medication she is halving. Clara Eli MD [id number],S, S he had one episode of sharp chest pain early in the morning that last 30 minutes. No other chest pain. Her last stress test 11/2020 was negative for ischemia. Clara Eli MD [id number],C, C linically compensated. Last echo showed EF of 65%. Clara Eli MD [id number],C, C ontinues on metformin Clara Eli MD [id number],C, R emains on Pravastatin Clara Eli MD [id number],C,B P elevated today at 142/63. Advised reduced sodium intake and routine monitoring of the blood pressure. We aim for less than 130/80. Clara Eli MD [id number],C, T he following medications were removed from the medication list: Aspirin 81 Mg Tablet,delayed Release (dr/ec) (Aspirin) ..... 1 tablet by mouth once a day Her updated medication list for this problem includes: Aspirin 81 Mg Tablet,delayed Release (dr/ec) (Aspirin) ..... 1 tablet by mouth once a day Edarbyclor 40-25 Mg Tablet (Azilsartan med-chlorthalidone) ..... Take 1 tablet by mouth daily Metformin 500 Mg Tablet (Metformin) ..... Once a day [facility] [id number],Maryr clark on statin. Will get labs from PCP H er updated medication list for this problem includes: Pravastatin 20 Mg Tablet (Pravastatin) ..... Take 1 tablet by mouth daily Fenofibrate Nanocrystallized 145 Mg Tablet (Fenofibrate nanocrystallized) ..... Take 1 tablet by mouth daily [facility] [id number],C,c hronic and unchanged. Elevation and compression encouraged. [facility] [id number],C,c ontrolled in office today. On average per RPM BP 162/70. She is taking medication as prescribed. Will change RPM out and continue to monitor T he following medications were removed from the medication list: Aspirin 81 Mg Tablet,delayed Release (dr/ec) (Aspirin) ..... 1 tablet by mouth once a day Her updated medication list for this problem includes: Aspirin 81 Mg Tablet,delayed Release (dr/ec) (Aspirin) ..... 1 tablet by mouth once a day Carvedilol 12.5 Mg Tablet (Carvedilol) ..... Take 1 tablet by mouth in the morning and 2 tablets in the afternoon Edarbyclor 40-25 Mg Tablet (Azilsartan med-chlorthalidone) ..... Take 1 tablet by mouth daily Nifedipine 30 Mg Tablet Extended Release (Nifedipine) ..... Take 1 tablet by mouth once a day [facility] [id number],Marya ppears compensated. EF of 65% per last echo. continue current medication regimen. T he following medications were removed from the medication list: Aspirin 81 Mg Tablet,delayed Release (dr/ec) (Aspirin) ..... 1 tablet by mouth once a day Her updated medication list for this problem includes: Aspirin 81 Mg Tablet,delayed Release (dr/ec) (Aspirin) ..... 1 tablet by mouth once a day Carvedilol 12.5 Mg Tablet (Carvedilol) ..... Take 1 tablet by mouth in the morning and 2 tablets in the afternoon Edarbyclor 40-25 Mg Tablet (Azilsartan med-chlorthalidone) ..... Take 1 tablet by mouth daily Nifedipine 30 Mg Tablet Extended Release (Nifedipine) ..... Take 1 tablet by mouth once a day Amanda Deleon [facility] [id number],S, W eight loss advised. Clara Eli MD [id number],S, C ontinues on Pravastatin and Fenofibrate. We aim for LDL < 70. Previous lipid panel with LDL 70. Clara Eli MD [id number],C, B P is better controlled according to RPM. She will continue her nifedipine, Coreg, and edarbyclor. Clara Eli MD [id number],S, C linically compensated. She continues on edarbyclor and Coreg. Previous Echo showed normal LV size and systolic function. Clara Eli MD [id number],S, C hest pain free. Her last stress test 11/2020 was negative for ischemia. Clara Eli MD [id number],S, B lood pressure control is elevated in the office but usually better controlled at home based on her RPM monitoring. We aim for a BP of 130/80 or lower. She continues on edarbyclor, nifedipine, and coreg. Clara Eli MD [id number],S, C hest pain free. Her last stress test 11/2020 was negative for ischemia. Clara Eli MD [id number],S, C linically compensated. She continues on edarbyclor and Coreg. Previous Echo showed normal LV size and systolic function. Clara Eli MD [id number],S, C ontinues on Pravastatin and Fenofibrate. We aim for LDL < 70. Previous lipid panel with LDL 70. Clara Eli MD [id number],S, S tage 3a. Most recent eGFR was 50. F/w Dr. Wilson. Clara Eli MD [id number],S, C ontinues on Metformin. Reduced intake of carbohydrates and sugars advised. Clara Eli MD [id number],S, S tage 3a. Most recent eGFR was 50. F/w Dr. Wilson. Clara Eil MD [id number],S, C ontinues on Pravastatin and Fenofibrate. We aim for LDL < 70. Previous lipid panel with LDL 70. Clara Eli MD [id number],S, B lood pressure control is satisfactory. Clara Eli MD [id number],S, C linically compensated. She continues on edarbyclor and Coreg. Previous Echo showed normal LV size and systolic function. Clara Eli MD [id number],S, C hest pain free. Her last stress test 11/2020 was negative for ischemia. Clara Eli MD [id number],C, C hest pain free. Her last stress test 11/2020 was negative for ischemia. Kiersten Barry [id number],C, C ontinues on Metformin. Reduced intake of carbohydrates and sugars advised. Kiersten Barry [id number],C, C linically compensated. She continues on edarbyclor and Coreg. Previous Echo showed normal LV size and systolic function. Kiersten Barry [id number],C, B P uncontrolled in the systolic 170s range for the past week. Went to the ER as she could not lower it. Experienced slight dizziness with the increased BP. Will start Nifedipine ER 30mg once daily and will give her an RPM monitor. Discussion of benefits for remote patient monitoring took place. Patient gives consent for remote monitoring of physiologic parameters including, but not limited to, weight, blood pressure, pulse oximetry, respiratory flow rate. Clara Eli MD [id number],S, S tage 3. Pt. reports most recent eGFR was 50. F/w Dr. Wilson. Clara Eli MD [id number],W, B P is elevated today. It was 160/104 initially at 176/86 on recheck. The patient states it normally runs in thomas 120-125 range when she checks at home. Advised continued routine home monitoring and dietary sodium restriction. Clara Eli MD [id number],S, W eight loss advised. Clara Eli MD [id number],S, C ontinues on Metformin. Reduced intake of carbohydrates and sugars advised. Previous A1c 6.0%. We will request her most recent labwork from your office. Clara Eli MD [id number],S, C linically compensated. She continues on edarbyclor and Coreg. Previous Echo showed normal LV size and systolic function. Clara Eli MD [id number],S, C ontinues on Pravastatin and Fenofibrate. We aim for LDL < 70. Previous lipid panel with LDL 70. Clara Eli MD [id number],S, C hest pain free. Her last stress test 11/2020 was negative for ischemia. The patient has been reassured. Clara Eli MD Cardiology: N eeds to have incontinence pads changed regularly to limit to risk of recurrent UTI. Clara Eli MD Cardiology: C linically compensated. Last echo showed EF of 65%. Clara Eli MD Cardiology: C hest pain free. Clara Eli MD Cardiology: B P is low. Down 25 lbs. Will stop lasix, nifedipine, and edarbyclor, and will reduce carvedilol to 12.5mg BID. BP needs to be checked twice daily at the care home. I spoke with the [facility] which provides the medications to her care home and detailed the changes we are making today. Clara Eli MD Cardiology :BP eleva otilio today at 142/63. Advised reduced sodium intake and routine monitoring of the blood pressure. We aim for less than 130/80. She has been cutting one of her blood pressure medications in half. She and her daughter are not sure whether it was the nifedipine or the Coreg. I will reduce her Coreg today to 6.125 mg BID and await the daughter's call informing us which medication she is halving. Clara Eli MD Cardiology : S he had one episode of sharp chest pain early in the morning that last 30 minutes. No other chest pain. Her last stress test 11/2020 was negative for ischemia. Clara Eli MD Cardiology : C linically compensated. Last echo showed EF of 65%. Clara Eli MD Cardiology : C ontinues on metformin Clara Eli MD Cardiology : R halleins on Pravastatin Clara Eli MD Cardiology :BP eleva otilio today at 142/63. Advised reduced sodium intake and routine monitoring of the blood pressure. We aim for less than 130/80. Clara Eli MD Cardiology: T he following medications were removed from the medication list: Aspirin 81 Mg Tablet,delayed Release (dr/ec) (Aspirin) ..... 1 tablet by mouth once a day Her updated medication list for this problem includes: Aspirin 81 Mg Tablet,delayed Release (dr/ec) (Aspirin) ..... 1 tablet by mouth once a day Edarbyclor 40-25 Mg Tablet (Azilsartan med-chlorthalidone) ..... Take 1 tablet by mouth daily Metformin 500 Mg Tablet (Metformin) ..... Once a day [facility] Cardiology:remains o n statin. Will get labs from PCP H er updated medication list for this problem includes: Pravastatin 20 Mg Tablet (Pravastatin) ..... Take 1 tablet by mouth daily Fenofibrate Nanocrystallized 145 Mg Tablet (Fenofibrate nanocrystallized) ..... Take 1 tablet by mouth daily [facility] Cardiology:chronic a nd unchanged. Elevation and compression encouraged. [facility] Cardiology:controlle d in office today. On average per RPM BP 162/70. She is taking medication as prescribed. Will change RPM out and continue to monitor T he following medications were removed from the medication list: Aspirin 81 Mg Tablet,delayed Release (dr/ec) (Aspirin) ..... 1 tablet by mouth once a day Her updated medication list for this problem includes: Aspirin 81 Mg Tablet,delayed Release (dr/ec) (Aspirin) ..... 1 tablet by mouth once a day Carvedilol 12.5 Mg Tablet (Carvedilol) ..... Take 1 tablet by mouth in the morning and 2 tablets in the afternoon Edarbyclor 40-25 Mg Tablet (Azilsartan med-chlorthalidone) ..... Take 1 tablet by mouth daily Nifedipine 30 Mg Tablet Extended Release (Nifedipine) ..... Take 1 tablet by mouth once a day [facility] Cardiology:appears c ompensated. EF of 65% per last echo. continue current medication regimen. T he following medications were removed from the medication list: Aspirin 81 Mg Tablet,delayed Release (dr/ec) (Aspirin) ..... 1 tablet by mouth once a day Her updated medication list for this problem includes: Aspirin 81 Mg Tablet,delayed Release (dr/ec) (Aspirin) ..... 1 tablet by mouth once a day Carvedilol 12.5 Mg Tablet (Carvedilol) ..... Take 1 tablet by mouth in the morning and 2 tablets in the afternoon Edarbyclor 40-25 Mg Tablet (Azilsartan med-chlorthalidone) ..... Take 1 tablet by mouth daily Nifedipine 30 Mg Tablet Extended Release (Nifedipine) ..... Take 1 tablet by mouth once a day Amanda Deleon [employer] Cardiology: W eight loss advised. Clara Eli MD Cardiology: C ontinues on Pravastatin and Fenofibrate. We aim for LDL < 70. Previous lipid panel with LDL 70. Clara Eli MD Cardiology: B P is better controlled according to RPM. She will continue her nifedipine, Coreg, and edarbyclor. Clara Eli MD Cardiology: C linically compensated. She continues on edarbyclor and Coreg. Previous Echo showed normal LV size and systolic function. Clara Eli MD Cardiology: C hest pain free. Her last stress test 11/2020 was negative for ischemia. Clara Eli MD Cardiology: B lood pressure control is elevated in the office but usually better controlled at home based on her RPM monitoring. We aim for a BP of 130/80 or lower. She continues on edarbyclor, nifedipine, and coreg. Clara Eli MD Cardiology: C hest pain free. Her last stress test 11/2020 was negative for ischemia. Clara Eli MD Cardiology: C linically compensated. She continues on edarbyclor and Coreg. Previous Echo showed normal LV size and systolic function. Clara Eli MD Cardiology: C ontinues on Pravastatin and Fenofibrate. We aim for LDL < 70. Previous lipid panel with LDL 70. Clara Eli MD Cardiology: S tage 3a. Most recent eGFR was 50. F/w Dr. Wilson. Clara Eli MD Cardiology: C ontinues on Metformin. Reduced intake of carbohydrates and sugars advised. Clara Eli MD Cardiology: S tage 3a. Most recent eGFR was 50. F/w Dr. Wilson. Clara Eli MD Cardiology: C ontinues on Pravastatin and Fenofibrate. We aim for LDL < 70. Previous lipid panel with LDL 70. Clara Eli MD Cardiology: B lood pressure control is satisfactory. Clara Eli MD Cardiology: C linically compensated. She continues on edarbyclor and Coreg. Previous Echo showed normal LV size and systolic function. Clara Eli MD Cardiology: C hest pain free. Her last stress test 11/2020 was negative for ischemia. Clara Eli MD Cardiology: C hest pain free. Her last stress test 11/2020 was negative for ischemia. Kiersten Barry Cardiology: C ontinues on Metformin. Reduced intake of carbohydrates and sugars advised. Kiersten Barry Cardiology: C linically compensated. She continues on edarbyclor and Coreg. Previous Echo showed normal LV size and systolic function. Kiersten Barry Cardiology: B P uncontrolled in the systolic 170s range for the past week. Went to the ER as she could not lower it. Experienced slight dizziness with the increased BP. Will start Nifedipine ER 30mg once daily and will give her an RPM monitor. Discussion of benefits for remote patient monitoring took place. Patient gives consent for remote monitoring of physiologic parameters including, but not limited to, weight, blood pressure, pulse oximetry, respiratory flow rate. Clara Eli MD Cardiology: S kyme 3. Pt. reports most recent eGFR was 50. F/w Dr. Wilson. Clara Eli MD Cardiology: B P is elevated today. It was 160/104 initially at 176/86 on recheck. The patient states it normally runs in thomas 120-125 range when she checks at home. Advised continued routine home monitoring and dietary sodium restriction. Clara Eli MD Cardiology: W eight loss advised. Clara Eli MD Cardiology: C ontinues on Metformin. Reduced intake of carbohydrates and sugars advised. Previous A1c 6.0%. We will request her most recent labwork from your office. Clara Eli MD Cardiology: C linically compensated. She continues on edarbyclor and Coreg. Previous Echo showed normal LV size and systolic function. Clara Eli MD Cardiology: C ontinues on Pravastatin and Fenofibrate. We aim for LDL < 70. Previous lipid panel with LDL 70. Clara Eli MD Cardiology: C hest pain free. Her last stress test 11/2020 was negative for ischemia. The patient has been reassured. Clara Eli MD Cardiology follow up :Weight los s advised. Austin Whalen Cardiology follow up :Continues on Metformin. Reduced intake of carbohydrates and sugars advised. A1c today 6.0% Austin cole Cardiology follow up :Continues on Pravastatin and Fenofibrate. We aim for LDL < 70. Lipid panel today with LDL 70. Austin cole Cardiology follow up :Clinically compensated. She continues on edarbyclor and Coreg. Echo today with normal LV size and systolic function. Austin cole Cardiology follow up :Blood pressure 145/66. Advised reduced sodium intake and routine monitoring of the blood pressure. We aim for less than 130/80. She continues on Coreg and Edarbyclor as before. Austin cole Cardiology follow up :Patient has hx of CAD and multiple risk factors. Her last ischemic workup was 5 years ago. Will arrange stress test. Austin Whalen Cardiology :Weight loss advised. Clara Eli MD Cardiology :Diet con trolled. Blood sugar well controlled and typically around 135. Clara Eli MD Cardiology :Clinical ly compensated. She continues on edarbyclor and Coreg. Will repeat echocardiogram. Clara Eli MD Cardiology :Continues on Pravast atin and tricor. Clara Eli MD Cardiology :Blood pr essure elevated in the office. She reports her home blood pressure is well controlled. No changes to antihypertensives made today. Advised to continue monitoring her blood pressure and reduce dietary sodium intake to less than 2g per day. We aim for blood pressure < 130/80. Clara Eli MD Cardiology :Chest pa in free. Effort tolerance stable. Continues on ASA. Clara Eli MD Cardiology Follow up :Blood pressure control is satisfactory. Clara Eli MD Cardiology Follow up :Weight los s advised. Clara Eli MD Cardiology Follow up :On tricor and pravachol which she continues. Clara Eli MD Cardiology Follow up :Continues on Metformin. Discussed potential diabetes studies with patient. She is agreeable. Clara Eli MD Cardiology Follow up :Clinically compensated. She continues on edarbyclor and Coreg. Discussed potential heart failure studies with patient. She is agreeable. Austin Whalen Cardiology Follow up :Chest pain free. Effort tolerance stable. Continues on ASA. Clara Eli MD Cardiology follow up Clara ospina MD Cardiology follow up :Weight los s advised. Clara Eli MD Cardiology follow up :No symptoms. No limitation of activity. Clara Eli MD Cardiology follow up :On tricor and pravachol. Clara Eli MD Cardiology follow up :Blood pressure has been elevated recently. She is on Edarbyclor 40-25mg once a day. The dose of Coreg has been increased to 12.5mg in the AM and 25mg in the PM. She will continue to monitor and record her blood pressure on a daily basis. Clara Eli MD Cardiology:Weight lo ss advised. Clara Eli MD Cardiology:Continues on statins. Clara Eli MD Cardiology:Blood pre ssure control is satisfactory. Continues edarbyclor and Coreg. Clara Eli MD Cardiology:Clinicall y compensated. She continues on edarbyclor and Coreg. Clara Eli MD Cardiology:Well cont rolled. Continues on metformin. Clara Eli MD Cardiology:Chest geena n free. Effort tolerance stable. Continues on ASA. Clara Eli MD Cardiology:Continues on statins. Clara Eli MD Cardiology:Blood pre ssure control is satisfactory. Continues edarbyclor. Clara Eli MD Cardiology:Well controlled. Cont inues on metformin. Clara Eli MD Cardiology:Weight loss advised. Clara Eli MD Cardiology:Possible venous insufficiency. Will arrange venous doppler. Clara Eli MD Cardiology:Bilateral pedal edema noted. ProBNP and echocardiogram will be arranged. Clara Eli MD Cardiology:No recurr ence of chest pain. Effort tolerance stable. Continues on ASA. Clara Eli MD Cardiology:On Tricor. Peter Jaimes Cardiology:Diet controlled. Robbin alcaraz Fiona Cardiology:BP contro l seems to be better than before but she still has occasional spikes, for which she would take an extra tablet of Coreg. Peter Jaimes Cardiology:Clinicall y compensated. She is on Chlorthalidone as part of her antihypertensive regimen. Peter Jaimes Cardiology Follow up :She has been on metformin which was discontinued, but she has noticed that her sugars are rising up. We need to know what her creatinine is, please send us the results. Clara Eli MD Cardiology Follow up :On fish oi l and trichor Clara Eli MD Cardiology Follow up :No recurre nce. Clara Eli MD Cardiology Follow up :Stress test from 09/20/16 was unremarkable Clara Eli MD Cardiology Follow up :BP today: 167/68 P rior BP: 132/64 (08/09/2016) P atient reports that her BP tends to be lower at home. Recommended that she check it more often and write it down for the next visit. Clara Eli MD Cardiology - BP clin ic:Patient states BPs at home running low and she is feeling dizzy with some HRs in the low 60, upper 50's. Will decrease Coreg. H er updated medication list for this problem includes: Coreg 12.5 Mg Tabs (Carvedilol) ..... One tab. twice daily Aspirin Adult Low Dose 81 Mg Oral Tbec (Aspirin) ..... One tab by mouth daily Edarbyclor 40-25 Mg Tabs (Azilsartan-chlorthalidone) ..... Daily Cecilia Ortiz NP Cardiology Barry Green MD Cardiology Barry Green MD Cardiology:WILL TRY COREG B P today: 182/74 P rior BP: 158/80 (10/13/2015) Prior 10 Yr Risk Heart Disease: N/A (06/18/2013) Labs Reviewed: C reat: 1.31 (07/23/2013) C hol: 139 (11/05/2013) HDL: 45 (11/05/2013) LDL: 67 (11/05/2013) T (11/05/2013) Her updated medication list for this problem includes: Coreg 6.25 Mg Tabs (Carvedilol) ..... One tab. twice daily Atenolol 50 Mg Tabs (Atenolol) ..... Half tab in the am and full tab in the pm. Aspirin Adult Low Dose 81 Mg Oral Tbec (Aspirin) ..... One tab by mouth daily Edarbyclor 40-25 Mg Tabs (Azilsartan-chlorthalidone) ..... Daily Barry Green MD Cardiology:DUE FOR STRESS Barry Green MD Cardiology:5.6 , SUGGESTESX SHE STOP METFROMIN Barry Green MD Cardiology Follow up :No recurre nce. Clara Eli MD Cardiology Follow up :No recurre nce. Clara Eli MD Cardiology Follow up :On Metform in. Clara Eli MD Cardiology Follow up :Blood pressure control is satisfactory. Clara Eli MD Cardiology Follow up :Chest pain free. Continues on aspirin. Clara Eli MD fu Cecilia Pantoja P fu:On metformin. As per pt, her blood sugar is normally under 120. Cecilia Transaira WARNER fu:Blood pressure control remain s satisfactory. Cecilia Ortiz 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 fu Cecilia Ortiz N P fu:Chest pain free. Cecilia carroll TIMMY Follow up : H er updated medication list for this problem includes: Metformin Hcl 500 Mg Tabs (Metformin hcl) ..... 1 tablet by mouth daily Camryn Low Strength 81 Mg Tbec (Aspirin) ..... 1 tablet by mouth daily Edarbyclor 40-25 Mg Tabs (Azilsartan-chlorthalidone) ..... Po once a day Clara Eli MD Follow up Clara Santana Follow up : H er updated medication list for this problem includes: Atenolol 50 Mg Tabs (Atenolol) ..... Half tab in the am and full tab in the pm. Camryn Low Strength 81 Mg Tbec (Aspirin) ..... 1 tablet by mouth daily Tricor 145 Mg Tabs (Fenofibrate) ..... One tab. daily Clara Eli MD Follow up : H er updated medication list for this problem includes: Atenolol 50 Mg Tabs (Atenolol) ..... Half tab in the am and full tab in the pm. Camryn Low Strength 81 Mg Tbec (Aspirin) ..... 1 tablet by mouth daily Aldactone 25 Mg Tabs (Spironolactone) ..... Po two tablets daily Edarbyclor 40-25 Mg Tabs (Azilsartan-chlorthalidone) ..... Po once a day Clara Eli MD : H er updated medication list for this problem includes: Atenolol 50 Mg Tabs (Atenolol) ..... 1 tablet by mouth daily Camryn Low Strength 81 Mg Tbec (Aspirin) ..... 1 tablet by mouth daily Aldactone 25 Mg Tabs (Spironolactone) ..... One tab daily Tribenzor 40-5-12.5 Mg Tabs (Lyszvhlpzt-qshtilqksi-azze) ..... One tab daily Patient presents for HTN clinic. Readings in office and at home show adequately controlled BP. Repeat in office today 138/72 left arm, sitting, regular size cuff. Her electronic machince from home reads approximately 10-15mmHg higher than manual cuff. She will continue her current medications. Cecilia Ortiz NP follow up: T he following medications were removed from the medication list: Lisinopril 40 Mg Tabs (Lisinopril) ..... One tab. daily Her updated medication list for this problem includes: Atenolol 50 Mg Tabs (Atenolol) ..... 1 tablet by mouth daily Camryn Low Strength 81 Mg Tbec (Aspirin) ..... 1 tablet by mouth daily BP today: 191/86 Prior BP: 126/70 (06/21/2011) N uclear Stress Findings: 1. Normal Jorge Alberto protocol exercise tolerance test. 2 . Normal left ventricular size and function with a calculated ejection fraction of 50%. 3 . Myocardial scintigraphy is normal without evidence for previous myocardial infarction or reversible ischemia. [facility] (03/23/2009) Orders: C ardiopulmonary Stress Test (CPT-63781) S tress Test - Nuclear (59004) Clara Eli MD follow up: O rders: E KG (CPT-79831) C ardiopulmonary Stress Test (CPT-54455) S tress Test - Nuclear (29844) Clara Eli MD f/u Clara Santana f/u: H er updated medication list for this problem includes: Atenolol 25 Mg Tabs (Atenolol) ..... 1 tablet by mouth daily Lisinopril 40 Mg Tabs (Lisinopril) ..... One tab. daily Camryn Low Strength 81 Mg Tbec (Aspirin) ..... 1 tablet by mouth daily BP today: 128/70 P rior BP: 153/82 (04/07/2009) Clara Eli MD f/u: H er updated medication list for this problem includes: Atenolol 25 Mg Tabs (Atenolol) ..... 1 tablet by mouth daily Lisinopril 40 Mg Tabs (Lisinopril) ..... One tab. daily Camryn Low Strength 81 Mg Tbec (Aspirin) ..... 1 tablet by mouth daily Orders: E KG (CPT-47974) BP today: 128/70 Prior BP: 153/82 (04/07/2009) N uclear Stress Findings: 1. Normal Jorge Alberto protocol exercise tolerance test. 2 . Normal left ventricular size and function with a calculated ejection fraction of 50%. 3 . Myocardial scintigraphy is normal without evidence for previous myocardial infarction or reversible ischemia. [facility] (03/23/2009) E chocardiogram: Normal left ventricular systolic function. Normal left ventricular size. Normal left ventricular wall thickness. There is E to A wave reversal consistent with impaired LV r elaxation . Normal E/E` 14.0. Left ventricular ejection fraction is estimated at 60%. T here is trace physiologic mitral valve regurgitation. T here is trace physiologic tricuspid valve regurgitation. [facility] (03/23/2009) Clara Eli MD f/u: H er updated medication list for this problem includes: Metformin Hcl 500 Mg Tabs (Metformin hcl) ..... 1 tablet by mouth daily Lisinopril 40 Mg Tabs (Lisinopril) ..... One tab. daily Camryn Low Strength 81 Mg Tbec (Aspirin) ..... 1 tablet by mouth daily BP today: 128/70 Prior BP: 153/82 (04/07/2009) Clara Eli MD arrythmia Clara Santana arrythmia: H er updated medication list for this problem includes: Atenolol 25 Mg Tabs (Atenolol) ..... 1 tablet by mouth daily Lisinopril-hydrochlorothiazide 20-25 Mg Tabs (Lisinopril-hydrochlorothiazide) ..... 1 tablet by mouth daily Camryn Low Strength 81 Mg Tbec (Aspirin) ..... 1 tablet by mouth daily BP today: 192/94 Clara Eli MD arrythmia: H er updated medication list for this problem includes: Metformin Hcl 500 Mg Tabs (Metformin hcl) ..... 1 tablet by mouth daily Lisinopril-hydrochlorothiazide 20-25 Mg Tabs (Lisinopril-hydrochlorothiazide) ..... 1 tablet by mouth daily Camryn Low Strength 81 Mg Tbec (Aspirin) ..... 1 tablet by mouth daily BP today: 192/94 Prior BP: / () Clara Eli MD Date Name RPM (remote patient monitoring) Stress Regadenoson Vitamin D, 25-Hydrox y LIPID PANEL CBC (H/H, RBC, INDIC ES, WBC, PLT) HEMOGLOBIN A1c COMPREHENSIVE METABO LIC PANEL, W/EGFR Complete Echo Complete Echo B TYPE NATRIURETIC P EPTIDE (BNP) URINALYSIS, RANDOM, MICROALB/CREATININE HEMOGLOBIN A1c BASIC METABOLIC PANE L W/EGFR VITAMIN B12 RETICULOCYTE COUNT IRON AND TOTAL IRON BINDING CAPACITY FOLATE, SERUM FERRITIN CBC (INCLUDES DIFF/P LT) COMPREHENSIVE METABO LIC PANEL, W/EGFR Complete Echo PROBNP, N TERMINAL Venous Doppler Bilat eral LE THYROID PANEL WITH T SH, 3RD GENERATION PROBNP, N TERMINAL VITAMIN D, 25-HYDROX Y, LC/MS/MS VITAMIN B12 Complete Echo STR - Adenosine Carotid Duplex Bilat eral LIPID PANEL HEMOGLOBIN A1c LIPID PANEL BASIC METABOLIC PANE L W/EGFR BASIC METABOLIC PANE L W/EGFR BASIC METABOLIC PANE L W/EGFR BASIC METABOLIC PANE L W/EGFR Stress Test - Nuclea r Cardiopulmonary Stre ss Test Complete Echo Renal Artery Duplex URINALYSIS, COMPLETE Other Complete Echo URINALYSIS, COMPLETE Stress Test - Nuclea r Renal Artery Duplex Complete Echo HISTORY OF PROCEDURES Procedure Date Procedure Name Provider Procedure Notes S tatus EKG Clara Eli MD complet ed EKG Clara Eli MD complet ed EKG Clara Eli MD complet ed EKG Clara Eli MD complet ed EKG Clara Eli MD complet ed EKG Clara Eli MD complet ed EKG Clara Eli MD complet ed EKG Clara Eli MD complet ed EKG Clara Eli MD complet ed EKG Clara Eli MD complet ed EKG Clara Eli MD complet ed EKG Clara Eli MD complet ed EKG Clara Eli MD complet ed SNOMED-CT: 158608356 588128 Current Medications Documented Clara Eli MD completed EKGreyson Eli MD complet ed SNOMED-CT: 289670331 574970 Current Medications Documented Clara Eli MD completed SNOMED-CT: 08241551 Physical Exam, Performed: Pulse Exam of Foot Clara Eli MD completed ASHLEY Eli MD complet ed SNOMED-CT: 596183697 590185 Current Medications Documented Clara Eli MD completed SNOMED-CT: 123346269 581489 Current Medications Documented Clara Eli MD completed SNOMED-CT: 31988227 Physical Exam, Performed: Pulse Exam of Foot Clara Eli MD completed EKG Clara Eli MD complet ed SNOMED-CT: 253549664 036507 Current Medications Documented Clara Eli MD completed Stress EKG Greyson Herndon MD completed Cardiolite, 2 units Barry Green MD completed SPECT Images Clara Eli MD compl eted SNOMED-CT: 736373583 430210 Current Medications Documented Barry Green MD completed SNOMED-CT: 087798968 Smoking Cessation Counseling Clara Eli MD completed SNOMED-CT: 61915894 Physical Exam, Performed: Pulse Exam of Foot Clara Eli MD completed EKG Clara Eli MD complet ed SNOMED-CT: 333322621 570663 Current Medications Documented Clara Eli MD completed EKG Clara Eli MD complet ed EKG Clara Eli MD complet ed EKG Clara Eli MD complet ed EKG Clara Eli MD complet ed EKG Greyson Herndon MD completed EKG Clara Eli MD complet ed EKG Clara Eli MD complet ed
--- OUTSIDE RECORDS SUMMARY | 2025-02-14 13:23 | XMS_ITS | Continuity of Care Document ---
Author Organization [facility] Address [address] [place] [address] Phone Care Team Providers Care Retail Service Lead Merchandiser Name Role Phone Jose G Allen DO Unavailable Unavailable Advance Directives Directive Yes / No Effective Date File Name No Information Encounters Encounter Description Practice Location Reason(s) For Visit Diagnoses Date Provider Providers Copied on Encounter Located within [facility], [address], [place], [place], [id number], [place] tel:[phone] [facility] No Information Alejandro White. [address] [facility], [place], [address], [place]. tel: [phone] Family History Family Member Type Diagnosis Age At Onset No Information Payers Payer name Insurance type Covered green party ID Authoriza tion(s) No Information Social History [...]
--- OUTSIDE RECORDS SUMMARY | 2025-02-14 13:23 | XMS_ITS | Clinical Summary ---
Author Organization Unknown Care Team Providers Care Stave Cutter Name Role Phone NEO GALVEZ Unavailable Unavailable ERICKA BASKETBALL PLAYER, SULMA Jareth ailable Unavailable [facility] SPIRITUAL CARE COUNSELOR, NYASIA Unavailabl e Unavailable GIROLAMO BEHAVIOUR SUPPORT TEACHER, JAMES Unavailable Unavailable [facility] H[facility] PAPER CUTTER OPERATOR, ANNE-MARIE Unavailable Julio César SOLANO LICENSED PRACTICAL NURSE, JONELLE Unavaila ble Unavailable [facility] MUSIC THERAPIST, CONY Unavailab le Unavailable [facility] CLINICAL SPECIALIST VASCULARMICROFILM MOUNTER, AUNG Unavailable Unavailable Payers Payer Name Policy Type Policy Number Effective Date Expira tion Date MEDICARE [place] [id number] Problems Condition Name Condition Details Condition Category Status Onset Date Resolution Date Last Treatment Date Treating Clinician Comments ALZHEIMER'S DISEASE, UNSPECIFIED Active 2023-09 00:00: 00 DEM IN OTHER DIS CLASSD ELSWHR, MILD, W/O BEH/PSYCH/MO OD/ANX Active 2023-09 00:00: 00 HYP HRT AND CHR KDNY DIS W HRT FAIL AND STG 1-4/UNSP CHR KDNY Active 2023-09 00:00: 00 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 Active 2023-09 00:00: 00 CHRONIC KIDNEY DISEASE, UNSPECIFIED Active 2023-09 00:00: 00 HEMIPLGA FOLLOWING CEREBRAL INFRC AFF RIGHT DOMINANT SIDE Active 2023-09 00:00: 00 ANOREXIA Active 2023-09 00:00: 00 FULL INCONTINENCE OF FECES Active 2023-09 00:00: 00 UNSPECIFIED URINARY INCONTINENCE Active 2023-09 00:00: 00 TYPE 2 DIABETES MELLITUS W DIABETIC CHRONIC KIDNEY DISEASE Active 2023-09 00:00: 00 VITAMIN DEFICIENCY, UNSPECIFIED Active 2023-09 00:00: 00 IRON DEFICIENCY ANEMIA, UNSPECIFIED Active 2023-09 00:00: 00 CONSTIPATION , UNSPECIFIED Active 2023-09 00:00: 00 ANXIETY DISORDER, UNSPECIFIED Active 2023-09 00:00: 00 Allergies, Adverse Reactions, Alerts Allergy Name Allergy Type Status Severity Reaction(s) Onset Date Inactive Date Treating Clinician Comments SULFA ANTIBIOTICS Propensity to adverse reactions Active 2023-09 18:17: 55 Medications Ordered Medication Name Filled Medication Name Start Date Stop Date Current Medication? Ordering Clinician Indication Dosage Frequency Signature (SIG) Comments Components acetaminoph en 500 mg tablet 2023-09 00:00: 00 Yes [id number] PAIN/FEVER 2 tablet EVERY 6 HOURS 2 tablet EVERY 6 HOURS (route: oral) Med Classific ation: Analgesic , Anti-infl ammatory or Antipyret ic acetaminoph en 650 mg rectal suppository 2023-09 00:00: 00 Yes [id number] MILD PAIN / FEVER 1 supposi tory, rectal EVERY 6 HOURS 1 suppositor y, rectal EVERY 6 HOURS (route: rectal) alprazolam 0.5 mg tablet 2023-09 00:00: 00 Yes [id number] ANXIETY/RES TLESSNESS 1 tablet 3 TIMES DAILY 1 tablet 3 TIMES DAILY (route: oral) Med Classific ation: Central Nervous System Agents aspirin 81 mg chewable tablet 2023-09 00:00: 00 Yes [id number] ANTICOAGULA NT 1 tablet ONCE DAILY 1 tablet ONCE DAILY (route: oral) Med Classific ation: Hematolog ical Agents Ativan 0.5 mg tablet 2023-09 00:00: 00 Yes [id number] ANXIETY 1 tablet EVERY 4 HOURS 1 tablet EVERY 4 HOURS (route: oral) Med Classific ation: Central Nervous System Agents bisacodyl 10 mg rectal suppository 2023-09 00:00: 00 Yes [id number] CONSTIPATIO N 1 supposi tory, rectal DAILY 1 suppositor y, rectal DAILY (route: rectal) carvedilol 12.5 mg tablet 2023-09 00:00: 00 Yes [id number] HEART 1 tablet TWICE DAILY 1 tablet TWICE DAILY (route: oral) Med Classific ation: Cardiovas cular Therapy Agents hydrocodone 5 mg-acetamin ophen 325 mg tablet 2023-09 00:00: 00 Yes [id number] PAIN 1 tablet EVERY 4 HOURS 1 tablet EVERY 4 HOURS (route: oral) Med Classific ation: Analgesic , Anti-infl ammatory or Antipyret ic hyoscyamine 0.125 mg sublingual tablet 2023-09 00:00: 00 Yes [id number] EXCESSIVE SECRETIONS 1 tablet EVERY 4 HOURS 1 tablet EVERY 4 HOURS (route: sublingual ) metformin ER 500 mg 24 hr tablet,exte nded release (gastric retention) 2023-09 00:00: 00 11-13 23:59 :00 No [id number] DIABETES 2 tablet ONCE DAILY 2 tablet ONCE DAILY (route: oral) Med Classific ation: Endocrine morphine concentrate 100 mg/5 mL (20 mg/mL) oral solution 2023-09 00:00: 00 Yes [id number] PAIN / SHORTNESS OF BREATH 0.25 mL EVERY 2 HOURS 0.25 mL EVERY 2 HOURS (route: oral) quetiapine 25 mg tablet 2023-09 00:00: 00 Yes [id number] DEPRESSION 1 tablet TWICE DAILY 1 tablet TWICE DAILY (route: oral) Med Classific ation: Central Nervous System Agents Senna Plus 8.6 mg-50 mg tablet 2023-09 00:00: 00 Yes [id number] CONSTIPATIO N 1 tablet BEDTIME 1 tablet BEDTIME (route: oral) Med Classific ation: Gastroint estinal Therapy Agents trazodone 100 mg tablet 2023-09 00:00: 00 08-06 23:59 :00 No [id number] AFTER MEALS FOR NAUSEA 1 tablet 3 TIMES DAILY 1 tablet 3 TIMES DAILY (route: oral) Med Classific ation: Central Nervous System Agents trazodone 100 mg tablet 2023-09 00:00: 00 Yes [id number] anxiety/sle ep 1 tablet AT BEDTIME 1 tablet AT BEDTIME (route: oral) Alternate Route: BY MOUTH. Med Classific ation: Central Nervous System Agents Prozac 10 mg capsule 2 00:00: 00 Yes [id number] DEPRESSION 1 capsule ONCE DAILY 1 capsule ONCE DAILY (route: oral) Med Classific ation: Central Nervous System Agents cephalexin 500 mg tablet 2- 00:00: 00 11-28 23:59 :00 No [id number] INFECTION LEFT 3RD FINGER 1 tablet 3 TIMES DAILY 1 tablet 3 TIMES DAILY (route: oral) Med Classific ation: Anti-Infe ctive Agents Cipro 500 mg tablet 3-17 00:00: 00 Yes [id number] FINGER INFECTION 1 tablet 2 TIMES DAILY 1 tablet 2 TIMES DAILY (route: oral) Med Classific ation: Anti-Infe ctive Agents Vital Signs Vital Name Observation Time Observation Value Commen ts Temperature 2025-02-13 09:23:00.000 97.2 [degF] Temperature 2025-02-11 10:33:00.000 97.4 [degF] Temperature 2025-02-09 14:19:00.000 97.7 [degF] Temperature 2025-02-06 09:11:00.000 97.5 [degF] Temperature 2025-02-04 10:21:00.000 98.1 [degF] Temperature 2025-02-02 09:21:00.000 98.1 [degF] Temperature 2025-01-27 10:11:00.000 98.8 [degF] Temperature 2025-01-20 12:28:00.000 98.2 [degF] Pulse 2025-02-13 09:23:00.000 70 /min Pulse 2025-02-11 10:33:00.000 54 /min Pulse 2025-02-09 14:19:00.000 58 /min Pulse 2025-02-06 09:11:00.000 66 /min Pulse 2025-02-04 10:21:00.000 62 /min Pulse 2025-02-02 09:21:00.000 62 /min Pulse 2025-01-27 10:11:00.000 64 /min Pulse 2025-01-20 12:28:00.000 82 /min Respirations 2025-02-13 09:23:00.000 16 /min Respirations 2025-02-11 10:33:00.000 14 /min Respirations 2025-02-09 14:19:00.000 18 /min Respirations 2025-02-06 09:11:00.000 16 /min Respirations 2025-02-04 10:21:00.000 16 /min Respirations 2025-02-02 09:21:00.000 12 /min Respirations 2025-01-27 10:11:00.000 18 /min Respirations 2025-01-20 12:28:00.000 18 /min Systolic Blood Pressure 2025-02-13 09:23:00.000 128 mm [Hg] Systolic Blood Pressure 2025-02-11 10:33:00.000 140 mm [Hg] Systolic Blood Pressure 2025-02-09 14:19:00.000 146 mm [Hg] Systolic Blood Pressure 2025-02-06 09:11:00.000 164 mm [Hg] Systolic Blood Pressure 2025-02-04 10:21:00.000 130 mm [Hg] Systolic Blood Pressure 2025-02-02 09:21:00.000 112 mm [Hg] Systolic Blood Pressure 2025-01-27 10:11:00.000 186 mm [Hg] Systolic Blood Pressure 2025-01-20 12:28:00.000 124 mm [Hg] Diastolic Blood Pressure 2025-02-13 09:23:00.000 70 mm [Hg] Diastolic Blood Pressure 2025-02-11 10:33:00.000 84 mm [Hg] Diastolic Blood Pressure 2025-02-09 14:19:00.000 70 mm [Hg] Diastolic Blood Pressure 2025-02-06 09:11:00.000 94 mm [Hg] Diastolic Blood Pressure 2025-02-04 10:21:00.000 70 mm [Hg] Diastolic Blood Pressure 2025-02-02 09:21:00.000 78 mm [Hg] Diastolic Blood Pressure 2025-01-27 10:11:00.000 105 m m[Hg] Diastolic Blood Pressure 2025-01-20 12:28:00.000 64 mm [Hg] Progress Notes Progress Notes <paragraph>[Visit Date: 2024 by ANNE-MARIE BORRERO PAPER CUTTER OPERATOR]:</paragraph><paragraph>PT WAS SITTING IN WHEELCHAIR UPON ARRIVAL. ADLS PER PATIENT CARE PLAN PERFORMED. PT IS SITTING IN WHEELCHAIR IN DINING ROOM AREA DEPARTURE. PT SPOKE WITH FACILITY STAFF NURSE SHELLEY. CONCERNS AT THIS TIME.</paragraph> <paragraph>[Visit Date: 2024 by [facility] MICROFILM MOUNTER]:</paragraph><paragraph>PATIENT IS AN 84 Y/O FEMALE WITH AN ADMITTING DX OF ALZHEIMER'S DISEASE. SHE RESIDES IN A MEMORY CARE FACILITY. UPON AND GROUND SUPPORT AGENT ARRIVAL, PATIENT WAS SITTING UP IN HER BRODA CHAIR IN THE [facility] AREA. SHE HAS A PLEASANT DEMEANOR, HER RESPIRATIONS ARE EVEN AND NON LABORED. BP IS 128/70, HEART RATE IS 70. LUNG SOUNDS ARE DIMINISHED THROUGHOUT BUT CLEAR TO AUSCULTATION. SHE HAS NO S/S OF PAIN, DISCOMFORT, OR DISTRESS AT THIS TIME. PATIENT IS DEPENDANT ON ALL ADL'S/IADL'S. NO DYSPNEA OR COUGH NOTED. ABDOMEN SOFT AND NON-DISTENDED WITH ACTIVE BSX4. LAST BM WAS YESTERDAY. SHE IS INCONTINENT OF BB WEARS DEPENDS. PT WAS WHEELED TO BEDROOM BY AIDE NURSE FOR SHOWER AND WOUND CARE. PT GIVEN LORAZEPAM BY FACILITY NURSE DUE TO AGITATION DURING SHOWER. WOUND CARE PERFORMED USING ASEPTIC TECHNIQUE, NO SS NOTED, PT TOLERATED WELL. PT CONDITION AND POC DISCUSSED WITH NURSE MORGAN. NO MEDICATION REFILLS ARE NEEDED THIS VISIT. ADVISED FACILITY TO CALL [phone]# WITH ANY ISSUES OR CONCERNS. EDDIE VOICES UNDERSTANDING.</paragraph> <paragraph>[Visit Date: 2024 by [facility] MICROFILM MOUNTER]:</paragraph><paragraph>PATIENT IS AN 84 Y/O FEMALE WITH AN ADMITTING DX OF ALZHEIMER'S DISEASE. SHE RESIDES IN A MEMORY CARE FACILITY. UPON ARRIVAL, PATIENT WAS SITTING UP IN HER BRODA CHAIR IN THE [facility] AREA. SHE HAS A PLEASANT DEMEANOR, HER RESPIRATIONS ARE EVEN AND NON LABORED. BP IS 140/84, HEART RATE IS 54. LUNG SOUNDS ARE DIMINISHED THROUGHOUT BUT CLEAR TO AUSCULTATION. SHE HAS NO S/S OF PAIN, DISCOMFORT, OR DISTRESS AT THIS TIME. PATIENT IS DEPENDANT ON ALL ADL'S/IADL'S. NO DYSPNEA OR COUGH NOTED. ABDOMEN SOFT AND NON-DISTENDED WITH ACTIVE BSX4. LAST BM WAS THIS AM. SHE IS INCONTINENT OF BB WEARS DEPENDS. PT WAS WHEELED TO BEDROOM BY AIDE NURSE FOR SHOWER AND WOUND CARE. WOUND CARE PERFORMED USING ASEPTIC TECHNIQUE, NO SS NOTED, PT TOLERATED WELL. PT CONDITION AND POC DISCUSSED WITH NURSE PAULINO. ORDER PLACED FOR WIPES; NO MEDICATION REFILLS ARE NEEDED THIS VISIT. ADVISED FACILITY TO CALL [phone]# WITH ANY ISSUES OR CONCERNS. LORA VOICES UNDERSTANDING.</paragraph> <paragraph>[Visit Date: [address] [facility] PAP[facility]UTTER OPERATOR]:</paragraph><paragraph>PT WAS SITTING IN WHEELCHAIR UPON ARRIVAL. ADLS PER PATIENT CARE PLAN PERFORMED. PT IS SITTING IN WHEELCHAIR IN DINING ROOM AREA DEPARTURE. PT SPOKE WITH FACILITY STAFF NURSE TAMMY. CONCERNS AT THIS TIME.</paragraph> <paragraph>[Visit Date: 2024 by SMITA LILLY BASKETBALL PLAYER]:</paragraph><paragraph>UPON ARRIVAL CLIENT WAS IN BRODA CHAIR I GATHERED ALL SUPPLIES AND TRANSFERRED PATIENT TO BED I PERFORMED A BED BATH PER NURSE HORAN BECAUSE CLIENT DID NOT HAVE ANOTHER SLING CLIENT WAS UP IN BRODA CHAIR IN COMMON AREA UPON DEPARTURE</paragraph> <paragraph>[Visit Date: 2024 by [facility] MICROFILM MOUNTER]:</paragraph><paragraph>SPOKE WITH PT DTR ANNA ROCHA. NO ISSUES OR CONCERNS AT THIS TIME.</paragraph> <paragraph>[Visit Date: 2024 by [facility] MICROFILM MOUNTER]:</paragraph><paragraph>PATIENT IS AN 84 Y/O FEMALE WITH AN ADMITTING DX OF ALZHEIMER'S DISEASE. SHE RESIDES IN A MEMORY CARE FACILITY. UPON SN ARRIVAL, PATIENT WAS SITTING UP IN HER BRODA CHAIR SLEEPING IN THE [facility] AREA. SHE WAS EASILY AWOKEN BY THIS NURSE AND AIDE. HER DEMEANOR IS PLEASANT, RESPIRATIONS ARE EVEN AND NON LABORED. BP IS 146/70, HEART RATE IS 58. LUNG SOUNDS ARE DIMINISHED THROUGHOUT BUT CLEAR TO AUSCULTATION. SHE HAS NO S/S OF PAIN, DISCOMFORT, OR DISTRESS AT THIS TIME. PATIENT IS DEPENDANT ON ALL ADL'S/IADL'S. NO DYSPNEA OR COUGH NOTED. ABDOMEN SOFT AND NON-DISTENDED WITH ACTIVE BSX4. SHE IS INCONTINENT OF BB WEARS DEPENDS. PT WAS WHEELED TO BEDROOM BY AIDE NURSE FOR SHOWER AND WOUND CARE. WOUND CARE PERFORMED USING ASEPTIC TECHNIQUE, NO SS NOTED, PT TOLERATED WELL. PT CONDITION AND POC DISCUSSED WITH NURSE MCCLURE. NO SUPPLIES OR MEDICATION REFILLS ARE NEEDED THIS VISIT. ADVISED FACILITY TO CALL [phone]# WITH ANY ISSUES OR CONCERNS. REN VOICES UNDERSTANDING.</paragraph> Encounters Start Date/Time End Date/Time Encounter Type Admission Type Attending [facility] Facility Care Department Encounter ID Discharge Date Discharge Status Discharge Condition Discharge Reason Percent Goals Met 2025-01-20 00:00:00 2025-03-20 00:00:00 Outpatient RECERTIFIC [facility] [id number]
--- OUTSIDE RECORDS SUMMARY | 2025-02-14 13:23 | XMS_ITS | Clinical Summary ---
Author Organization [facility] Address [address] [place] [address] Care Team Providers Care County Extension Agent Name Role Phone Sam Torres MD Primary Care Provider Source Comments [facility],non-owned Affiliates and Associated Physician Practices is amultiple site organization consisting of ambulatory clinics and hospital sitesin [place], [place], [place] and [place]. This disclosure is being madepursuant to the Care Everywhere program and may not contain all information available regarding this patient. Last updated 18.[facility] Allergies Active Allergy Reactions Criticality Noted Date Comments Sulfa Antibiotics Rash Medium 05/31/2011 Legs swelling Other reaction(s): Dizziness Legs swelling Sulfa Drugs Dizziness 07/10/2019 Medications * This document contains information received from the source organization and may not represent a complete record from that organization. * Be aware that medications may not be up to date on this document. Alwaysverify current medications with the patient. metFORMIN (Glucophage) 500 MG tablet Take 1 (one) tablet by mouth once daily Active carvedilol (Coreg) 12.5 MG tablet Take 1 (one) tablet by mouth 10/31/2020 Active NIFEdipine CR 24hr (Adalat CC) 30 MG tablet Take 1 (one) tablet by mouth 01/18/2022 Active fenofibrate (Tricor) 145 MG tablet Take 1 (one) tablet by mouth 02/27/2022 Active pravastatin (Pravachol) 20 MG tablet Take 1 (one) tablet by mouth 03/06/2022 Active CINNAMON PO Active Multiple Vitamins-Mineral s (Centrum Silver) TABS Take 1 (one) tablet by mouth daily with food Active Cholecalciferol (D3-1000 PO) Active ferrous sulfate 325 (65 FE) MG tablet Take 1 (one) tablet by mouth once daily Active [place]-3 Fatty Acids (fish oil) 500 MG capsule Take by mouth 2 times daily Active Multiple Vitamins-Mineral s (RA VISION-TIGRE PRESERVE PO) Active Active Problems Problem Noted Date Diagnosed Date Abnormal renal function 11/02/2022 Backache 11/02/2022 Diabetes mellitus 11/02/2022 Family history of stroke 11/02/2022 Family history of other specified conditions 05/2023 Muscle contraction headache 11/02/2022 Dementia, senile 11/02/2022 Memory loss 11/02/2022 Symptoms involving urinary system 07/26/2022 Encounter for screening for cardiovascular disor ders 06/15/2022 Edema 08/18/2021 Vitamin D deficiency 03/01/2021 Leg edema 05/16/2017 Chronic diastolic heart failure 11/14/2016 Obesity 08/02/2016 Stage 3 chronic kidney disease 09/06/2015 Essential hypertension 09/06/2015 Hyperlipidemia 09/06/2015 Type 2 diabetes mellitus without complication 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 (AF LURIA, FLUZONE TRIVALENT; 6MO+) (IIV3) 08/03/2022,06/27/2021,07/23/2020 INFLUENZA VACCINE, QUADR. (F LUZONE; FLULAVAL; FLUARIX; AFLURIA QUADRIVALENT; 6MO+), 0.5 ML (IIV4) 07/10/2019 Pneumococcal Pcv13 Conj 11/01/2020 ZOSTER VACCINE, LIVE 07/26/2017 Social History Tobacco Use Types Packs/Day Years Used Date Smoking Tobacco: Never Assessed PHQ-2 Answer Date Recorded PHQ2 TOTAL SCORE 2 12/01/2022 Comments Unknown Sex and Gender Information Value Date Recorded Sex Assigned at Not on file Legal Sex Female 10:13 AM CDT Gender Identity Not on file Sexual Orientation Not on file Last Filed Vital Signs Vital Sign Reading Time Taken Comments Blood Pressure 148/62 11/02/2022 9:09 AM [employer] Pulse 69 11/02/2022 9:09 AM [employer] Temperature 36.4 C (97.6 F) 11/02/2022 9:09 AM [employer] Respiratory Rate - - Oxygen Saturation 96% 11/02/2022 9:09 AM [employer] Inhaled Oxygen Concentration - - Weight 77.7 kg (171 lb 3.2 oz) 11/02/2022 9:09 A M [employer] Height - - Body Mass Index - - Plan of Treatment Health Maintenance Due Date Last Done Comments BONE DENSITY TESTING 1942 DIABETES-SERUM CREATININE 1960 DTAP/TDAP/TD VACCINES (1 - Tdap) 1961 ZOSTER VACCINE (2 of 3) 09/20/2017 07/26/2017 Respiratory Syncytial Virus (RSV) Vaccine Pt: or over 60 yrs (1 - 1-dose 75+ series) 2017 PNEUMOCOCCAL VACCINE 50+ (2 of 2 - PPSV23) 12/27/2020 11/01/2020 DIABETES RETINOPATHY SCREENING 11/02/2022 DIABETES-FOOT EXAM WITH MONOFILAMENT 11/02/2022 DIABETES-HGB A1C 11/02/2022 COVID-19 VACCINE ( - season) 2024 DEPRESSION SCREENING 09/24/2024 12/01/2022 DIABETES - URINE PROTEIN SCREENING 09/24/2024 MEDICARE AWV CALENDAR YEAR 2024 INFLUENZA VACCINE (Season Ended) 2025 08/03/2022, 06/27/2021, 07/23/2020, Additional history exists HEPATITIS B VACCINE Aged Out No longe r eligible based on patient's age to complete this topic HIB VACCINE Aged Out No longer eligi ble based on patient's age to complete this topic HPV VACCINE Aged Out No longer eligi ble based on patient's age to complete this topic MENINGOCOCCAL (Group B) VACCINE SHARED DECISION-MAKING Aged Out No longer eligible based on patient's age to complete this topic MENINGOCOCCAL GROUPS A/C/Y/W VACCINE Aged Out No longer eligible based on patient's age to complete this topic Insurance Care Teams County Extension Agent Relationship Specialty Start Date End Date Sam Torres MD [address] [place] [id number] PCP - General 05/17/22
--- NOTE | 2025-02-14 14:18 | ED.GENADULT ---
HPI - General Adult General Chief complaint: Wound/Laceration Stated complaint: hand lac Time Seen by Provider: 02/14/25 13:13 History of Present Illness HPI narrative: 84-year-old female presenting to the emergency department for evaluation for 2 skin tears. Patient is bedbound and is typically transferred by [facility] lift. Family noticed 2 skin tears to her left arm 1 on the dorsum of the left hand and 1 on the left forearm. Care facility states the patient did not have a fall from the her lift or from her chair. Patient does have advanced dementia and is minimally verbal. Patient denies having any pain. Related Data Home Medications ?Medication ?Instructions ?Recorded ?Confirmed ?Last Taken ?Type carvedilol 12.5 mg tablet 12.5 mg PO .COMPLEX 10/17/22 09/12/23 05/15/23 08:00 History cinnamon bark 500 mg capsule 500 mg PO DAILY 10/17/22 09/12/23 05/15/23 History cyclobenzaprine 5 mg tablet 5 mg PO QHS PRN Spasms 10/17/22 09/12/23 04/30/23 History fenofibrate nanocrystallized 145 145 mg PO DAILY 10/17/22 09/12/23 05/15/23 History mg tablet metformin 500 mg tablet 1,000 mg PO DAILY 10/17/22 09/12/23 05/15/23 History enlmbxxekasn-vdkmyhoh-ufejlq tablet 1 tablet PO DAILY 10/17/22 09/12/23 05/15/23 History omega 9-xzs-mns-fish oil 500 mg 1 cap PO DAILY 10/17/22 09/12/23 05/15/23 History (200mg-300mg)-1,000 mg capsule pravastatin 20 mg tablet 20 mg PO DAILY 10/17/22 09/12/23 05/15/23 History furosemide 20 mg tablet 20 mg PO DAILY 05/15/23 09/12/23 05/15/23 History alprazolam 0.5 mg tablet 0.5 mg PO QHS PRN 09/10/23 09/12/23 Unknown History nitrofurantoin 100 mg capsule 100 mg PO Q12H 09/10/23 09/12/23 Unknown History potassium chloride 10 mEq 10 meq PO DAILY 09/10/23 09/12/23 Unknown History capsule,extended release quetiapine 25 mg tablet 25 mg PO QHS 09/10/23 09/12/23 Unknown History trazodone 100 mg tablet 100 mg PO QHS PRN 09/10/23 09/12/23 Unknown History Allergies Allergy/AdvReac Type Severity Reaction Status Date / Time Sulfa (Sulfonamide AdvReac Mild Nausea Verified 09/14/23 10:32 Antibiotics) Review of Systems Review of Systems: ROS unobtainable: Yes unobtainable due to medical condition PMFSH Past Medical History Medical History Alzheimer disease Anxiety disorder, unspecified Chronic kidney disease, stage 3b Constipation, unspecified Essential (primary) hypertension History of dementia History of hyperlipidemia Iron deficiency anemia Type 2 diabetes mellitus Unspecified combined systolic (congestive) and diastolic (congestive) heart failure Surgical History Surgical History History of root canal procedure Social History Social History (Updated 09/23/23 @ 00:16 by Paty Mcclellan MD) Social History: Advanced Directive CPR per facility documentation; DPOA daughter Smoking status: Never smoker Alcohol intake: never Substance use: never Substance use type: does not use Lack of Transportation: No Lack of Food: Never True Current Housing: I Have Housing Concerned About Future Housing: No Difficulty Paying Gas/Electric Bills: No Difficulty Paying for Meds: No Currently Unemployed: No Education: Bachelor's Degree Difficulty w/ Childcare or Family Care: No Additional living arrangements comments: [facility] since 04/15/23 Gender identity (if verbalized by the patient): Female Spiritual care concerns: No Exam Narrative: APPEARANCE: Well appearing, no pain, no distress, well-nourished. HEAD: normocephalic, atraumatic. EYES: PERRLA/EOMI, conjunctivae clear. NOSE: Normal no drainage EARS:TMS clear with good light reflex. THROAT: Pharynx clear, no exudate. NECK: Supple. No adenopathy, no masses. RESPIRATORY: Airway patent, respirations nonlabored. Clear to auscultation bilaterally, no rales, rhonchi, wheezing. CARDIOVASCULAR: Regular rate and rhythm without murmurs rubs or gallops. ABDOMINAL: Soft, nontender, nondistended, normal bowel sounds MUSCULOSKELETAL: Moves all extremities. Strength/ROM intact, No edema, No calf tenderness. NEURO: Alert. Cranial nerves II through XII intact. Good gait. Good coordination SKIN: Skin tear to dorsum of left hand, skin tear to left forearm Course Vital Signs Vital signs: Vital Signs Temperature 98.1 F 02/14/25 12:53 Pulse Rate 64 02/14/25 12:53 Respiratory Rate 14 02/14/25 12:53 Blood Pressure 140/73 02/14/25 12:53 Pulse Oximetry 98 02/14/25 12:53 Oxygen Delivery Room Air 02/14/25 12:53 Temperature 98.1 F 02/14/25 12:53 Pulse Rate 72 02/14/25 15:50 Respiratory Rate 16 02/14/25 15:50 Blood Pressure 137/72 02/14/25 15:50 Pulse Oximetry 95 02/14/25 15:50 Oxygen Delivery Room Air 02/14/25 12:53 Procedures Laceration Laceration 1: Site: hand Side (If applicable): left Size (cm): 5 Description: flap Depth: simple, single layer Pre-repair: wound explored and irrigated ====== Skin Level ====== Skin layer closed with: steri strips ====== Subcutaneous Layer ====== ====== Muscle Layer ====== ====== Tendon Layer ====== Laceration 2: Date: 02/14/25 Time: 14:21 Site: upper extremity Side (If applicable): left Size (cm): 2 Description: flap Depth: simple, single layer ====== Skin Level ====== Skin layer closed with: steri strips ====== Subcutaneous Layer ====== ====== Muscle Layer ====== ====== Tendon Layer ====== Medical Decision Making MDM Narrative Medical decision making narrative: 84-year-old female present to the emergency department for evaluation for multiple skin tears. Patient has no sign of injury to her head and care facility states the patient did not fall. Patient had no head or cervical spine tenderness. No other signs of injury were noted and patient is resting comfortably. No bony tenderness to the left hand. Skin tears were repaired as described in the procedure note. Patient was well-appearing at time of discharge. Differential Diagnosis Differential Diagnosis: Laceration, skin tear, abrasion Vital Signs Vital Signs: Vital Signs Temperature 98.1 F 02/14/25 12:53 Pulse Rate 64 02/14/25 12:53 Respiratory Rate 14 02/14/25 12:53 Blood Pressure 140/73 02/14/25 12:53 Pulse Oximetry 98 02/14/25 12:53 Oxygen Delivery Room Air 02/14/25 12:53 Temperature 98.1 F 02/14/25 12:53 Pulse Rate 72 02/14/25 15:50 Respiratory Rate 16 02/14/25 15:50 Blood Pressure 137/72 02/14/25 15:50 Pulse Oximetry 95 02/14/25 15:50 Oxygen Delivery Room Air 02/14/25 12:53 Discharge Plan Discharge Clinical Impression: Skin tear of upper extremity, Skin tear of left hand without complication Patient Disposition: [facility] Living Condition: Stable Instructions: Antibiotic Form, Skin Adhesive Strips (ED) Additional Instructions: Steri-Strips will fall off on their own. Wound care as directed. Have close follow-up with your primary care physician. Patient Language: Azerbaijani Prescriptions: No Action quetiapine 25 mg tablet 25 mg PO QHS potassium chloride 10 mEq capsule, extended release 10 meq PO DAILY trazodone 100 mg tablet 100 mg PO QHS PRN nitrofurantoin 100 mg capsule 100 mg PO Q12H Rx Instructions: must administer with a meal/food alprazolam 0.5 mg tablet 0.5 mg PO QHS PRN carvedilol 12.5 mg tablet 12.5 mg PO .COMPLEX Rx Instructions: 12.5 mg orally take one tablet QAM 2 tablets QPM; must administer with a meal/food xwsnzokmddsi-ufghswuk-aqnlar Tablet 1 tablet PO DAILY cinnamon bark 500 mg capsule 500 mg PO DAILY cyclobenzaprine 5 mg tablet 5 mg PO QHS PRN (Reason: Spasms) fenofibrate nanocrystallized 145 mg tablet 145 mg PO DAILY omega 6-lwa-lca-fish oil 500-1,000 mg capsule 1 cap PO DAILY metformin 500 mg tablet 1,000 mg PO DAILY pravastatin 20 mg tablet 20 mg PO DAILY furosemide 20 mg Tablet 20 mg PO DAILY cephalexin 500 mg capsule 500 mg PO Q12H Qty: 10 0RF docusate sodium [Colace] 100 mg capsule 100 mg PO BID Qty: 14 0RF Follow-up/Referrals: UNKNOWN,DOCTOR [Primary Care Provider] -
--- NOTE | 2025-02-14 14:49 | PC.NURSE ---
Report called to ALLY Grace at [facility]. All questions answered.
[2025-02-14 15:50] VITALS: BP 137/72; PULSE 72; RESP 16; O2SAT 95
--- NOTE | 2025-02-14 16:00 | PC.NURSE ---
Report given to [facility]. All questions answered. EMS to transport pt. back to [facility] at [facility]
== END 2025-02-14 16:03 ==
PROVIDERS: Emergency Provider Emergency Medicine
DX: S61.412A Laceration without foreign body of left hand, initial encounter (principal); S51.812A Laceration without foreign body of left forearm, initial encounter; X58.XXXA Exposure to other specified factors, initial encounter; N18.32 Chronic kidney disease, stage 3b; E78.5 Hyperlipidemia, unspecified; E11.22 Type 2 diabetes mellitus with diabetic chronic kidney disease; I50.40 Unspecified combined systolic (congestive) and diastolic (congestive) heart failure; I13.0 Hypertensive heart and chronic kidney disease with heart failure and stage 1 through stage 4 chronic kidney disease, or unspecified chronic kidney disease; G30.9 Alzheimer's disease, unspecified; F02.80 Dementia in other diseases classified elsewhere, unspecified severity, without behavioral disturbance, psychotic disturbance, mood disturbance, and anxiety
CPT/HCPCS: 99282

== ENCOUNTER 2025-07-14 18:57 | Emergency (ER) | payer OTHER, MEDICARE, SELFPAY ==
--- OUTSIDE RECORDS SUMMARY | 2002-08-14 09:15 | XMS_ITS | Continuity of Care Document ---
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 [address] [facility], [place], [address], [place]. tel: [phone] Family History Family Member Type Diagnosis Age At Onset No Information Payers Payer name Insurance type Covered republican ID Authoriza tion(s) No Information Social History Type Description Quantity Date Captured Comments Sex Female Smoking Status No Information Chief Complaint And Reason For Visit No Information Reason For Referral Reason For Referral No Information History Of Present Illness Encounter Date Complaint History Of Prese nt Illness No Information Functional Status Date Functional Assessmen t No Information Instructions Date Instruction Additional Infor mation No Information Assessments Type Assessment Date No Information Patient Care Teams Name Effective Dates (start - stop) Status Members No Information
--- NOTE | ~2025-07-14 | CT_ITS ---
CT brain wo con HISTORY:fall, hit head COMPARISON: None. TECHNIQUE: Axial images were obtained of the head without intravenous contrast. FINDINGS: There is increased cortical density in the left frontal cortex suggestive of a subarachnoid hemorrhage.There is no midline shift ormass effect.The calvarium is intact. Visualized paranasal sinuses and mastoid air cells are clear. IMPRESSION: Increased cortical density in the left frontal cortex suggestive of a subarachnoid hemorrhage. Continued surveillance is recommended. All CT scans at this facility are performed using low dose modulation techniques as appropriate to perform exam including the following: automated exposure control; use of iterative reconstruction technique; adjustment of the mA and/or kV according to patient size (this includes techniques or standardized protocols for targeted exams where dose is matched to indication/reason for exam). Reviewed, dictated and finalized at location S. IMPRESSION: Increased cortical density in the left frontal cortex suggestive of a subarachn oid hemorrhage. Continued surveillance is recommended. All CT scans at this facility are performed using low dose modulation techniqu es as appropriate to perform exam including the following: automated exposure c ontrol; use of iterative reconstruction technique; adjustment of the mA and/or kV according to patient size (this includes techniques or standardized protocol s for targeted exams where dose is matched to indication/reason for exam).
--- NOTE | ~2025-07-14 | CT_ITS ---
CT cervical spine wo con HISTORY: fall, hit head COMPARISON: None TECHNIQUE: Axial images of the cervical spine were obtained. Multiplanar reconstruction in the coronal, sagittal and axial reformats to evaluate for cervical fracture. FINDINGS: The images demonstrate no acute fracture or paravertebral soft tissue swelling. Degenerative changes with disc space narrowing and uncovertebral hypertrophy. The visualized aspect of the upper lungs are clear. IMPRESSION: No acute fracture or subluxation. Degenerative changes with disc space narrowing and uncovertebral hypertrophy. All CT scans at this facility are performed using low dose modulation techniques as appropriate to perform exam including the following: automated exposure control; adjustment of the mA and/or kV according to patient size (this includes techniques or standardized protocols for targeted exams where does is matched to indication/reason for exam; i.e. extremities or head); use of iterative reconstruction technique). Reviewed, dictated and finalized at location S. IMPRESSION: No acute fracture or subluxation. Degenerative changes with disc space narrowing and uncovertebral hypertrophy. All CT scans at this facility are performed using low dose modulation techniqu es as appropriate to perform exam including the following: automated exposure c ontrol; adjustment of the mA and/or kV according to patient size (this includes techniques or standardized protocols for targeted exams where does is matched to indication/reason for exam; i.e. extremities or head); use of iterative serg nstruction technique).
[2025-07-14 19:16] VITALS: BP 180/71; PULSE 61; RESP 20; TEMP 36.6; O2SAT 98
--- NOTE | 2025-07-14 19:49 | ED.FALL ---
HPI - Fall General Chief Complaint: Fall Stated Complaint: fall, hit head, hospice pt, nonverbal Time Seen by Provider: 07/14/25 19:28 Source: RN notes reviewed Mode of arrival: EMS Limitations: dementia History of Present Illness HPI Narrative: This is an 84-year-old female with history of dementia, CKD who presents to the ED via EMS from shelter for a fall. Per EMS report, patient had a fall from her chair in which she struck her head. Unclear if there was loss of consciousness. History is otherwise limited at this time due to patient's dementia. Related Data Home Medications ?Medication ?Instructions ?Recorded ?Confirmed ?Last Taken ?Type carvedilol 12.5 mg tablet 12.5 mg PO .COMPLEX 10/17/22 09/12/23 05/15/23 08:00 History cinnamon bark 500 mg capsule 500 mg PO DAILY 10/17/22 09/12/23 05/15/23 History cyclobenzaprine 5 mg tablet 5 mg PO QHS PRN Spasms 10/17/22 09/12/23 04/30/23 History fenofibrate nanocrystallized 145 145 mg PO DAILY 10/17/22 09/12/23 05/15/23 History mg tablet metformin 500 mg tablet 1,000 mg PO DAILY 10/17/22 09/12/23 05/15/23 History geroiazmwuym-dfqswkkb-xytxvd tablet 1 tablet PO DAILY 10/17/22 09/12/23 05/15/23 History omega 4-zmj-kzn-fish oil 500 mg 1 cap PO DAILY 10/17/22 09/12/23 05/15/23 History (200mg-300mg)-1,000 mg capsule pravastatin 20 mg tablet 20 mg PO DAILY 10/17/22 09/12/23 05/15/23 History furosemide 20 mg tablet 20 mg PO DAILY 05/15/23 09/12/23 05/15/23 History alprazolam 0.5 mg tablet 0.5 mg PO QHS PRN 09/10/23 09/12/23 Unknown History nitrofurantoin 100 mg capsule 100 mg PO Q12H 09/10/23 09/12/23 Unknown History potassium chloride 10 mEq 10 meq PO DAILY 09/10/23 09/12/23 Unknown History capsule,extended release quetiapine 25 mg tablet 25 mg PO QHS 09/10/23 09/12/23 Unknown History trazodone 100 mg tablet 100 mg PO QHS PRN 09/10/23 09/12/23 Unknown History Allergies Allergy/AdvReac Type Severity Reaction Status Date / Time Sulfa (Sulfonamide AdvReac Mild Nausea Verified 09/14/23 10:32 Antibiotics) Review of Systems Review of Systems: ROS unobtainable: Yes unobtainable due to medical condition PMFSH Past Medical History Medical History Constipation, unspecified Unspecified combined systolic (congestive) and diastolic (congestive) heart failure Essential (primary) hypertension Anxiety disorder, unspecified Type 2 diabetes mellitus Iron deficiency anemia Alzheimer disease History of hyperlipidemia History of dementia Chronic kidney disease, stage 3b Surgical History Surgical History History of root canal procedure Social History Social History Social History: Advanced Directive CPR per facility documentation; DPOA daughter Smoking status: Never smoker Alcohol intake: never Substance use: never Substance use type: does not use Lack of Transportation: No Lack of Food: Never True Current Housing: I Have Housing Concerned About Future Housing: No Difficulty Paying Gas/Electric Bills: No Difficulty Paying for Meds: No Currently Unemployed: No Education: Bachelor's Degree Difficulty w/ Childcare or Family Care: No Additional living arrangements comments: [facility] since 04/15/23 Gender identity (if verbalized by the patient): Female Spiritual care concerns: No Exam Narrative: APPEARANCE: No acute distress, nontoxic, resting in bed EYES: EOMI HEENT: Normocephalic, atraumatic, OMM RESPIRATORY: No respiratory distress Clear to auscultation bilaterally with no rhonchi wheezing or rales. CARDIOVASCULAR: Regular rate and rhythm without murmurs rubs or gallops. ABDOMINAL: Soft, nontender, nondistended, no rebound or guarding MUSCULOSKELETAl: Moves all extremities. No clubbing, cyanosis or edema. No deformities. NEURO: Awake and alert and oriented to self only. Following commands, no focal deficits SKIN:: Warm, dry. No rashes lesions or abrasions PSYCHIATRIC: Normal affect/mood, Course Vital Signs Vital signs: Vital Signs Temperature 97.9 F 07/14/25 19:16 Pulse Rate 61 07/14/25 19:16 Respiratory Rate 20 07/14/25 19:16 Blood Pressure 180/71 H 07/14/25 19:16 Pulse Oximetry 98 07/14/25 19:16 Oxygen Delivery Room Air 07/14/25 19:16 Temperature 97.9 F 07/14/25 19:16 Pulse Rate 65 07/14/25 20:30 Respiratory Rate 15 07/14/25 20:30 Blood Pressure 183/77 H 07/14/25 20:30 Pulse Oximetry 100 07/14/25 20:30 Oxygen Delivery Room Air 07/14/25 19:16 MDM - Fall MDM Narrative Medical decision making narrative: 84-year-old female currently on hospice due to vascular dementia presenting for fall from chair. On initial evaluation, patient was in no acute distress, afebrile, hemodynamically stable. She had no focal deficits. No trauma noted to the head. CT head and C-spine were obtained. CT head did reveal a small subarachnoid hemorrhage. Family did arrive and I had a long discussion with the family regarding her hospice status and potential prognosis potential need for operative intervention if her symptoms were to worsen. After this discussion, family did elect to keep the patient hospice and to send her back to hospice for monitoring and symptomatic control. Patient was deemed appropriate for discharge back to hospice at this time. Family was agreeable to this plan. Differential Diagnosis Differential diagnosis: Likely other (Intracranial hemorrhage, contusion, abrasion,) Medical Records Attestation: I reviewed the patient's medical records. Imaging Data Attestation: I personally reviewed and interpreted this imaging study as follows: Radiologist's impression: Impressions Head CT 07/14/25 20:18 IMPRESSION: Increased cortical density in the left frontal cortex suggestive of a subarachnoid hemorrhage. Continued surveillance is recommended. All CT scans at this facility are performed using low dose modulation techniques as appropriate to perform exam including the following: automated exposure control; use of iterative reconstruction technique; adjustment of the mA and/or kV according to patient size (this includes techniques or standardized protocols for targeted exams where dose is matched to indication/reason for exam). Cervical Spine CT 07/14/25 20:22 IMPRESSION: No acute fracture or subluxation. Degenerative changes with disc space narrowing and uncovertebral hypertrophy. All CT scans at this facility are performed using low dose modulation techniques as appropriate to perform exam including the following: automated exposure control; adjustment of the mA and/or kV according to patient size (this includes techniques or standardized protocols for targeted exams where does is matched to indication/reason for exam; i.e. extremities or head); use of iterative reconstruction technique). Discharge Plan Discharge Clinical Impression: Subarachnoid hemorrhage Fall Qualifiers: Encounter type: initial encounter Qualified Code(s): W19.XXXA - Unspecified fall, initial encounter Patient Disposition: Home Condition: Stable Instructions: Antibiotic Form, Subarachnoid Hemorrhage (DC) Additional Instructions: Brittani was found to have a subarachnoid hemorrhage after her fall. I do believe that she would be much better served to remain on hospice for this as the potential neuro surgery involved would be beyond her wishes. This bleed is likely to heal on its own as it is. Return to the ED for any new or worsening symptoms if desired. Patient Language: Arabic Prescriptions: No Action quetiapine 25 mg tablet 25 mg PO QHS potassium chloride 10 mEq capsule, extended release 10 meq PO DAILY trazodone 100 mg tablet 100 mg PO QHS PRN nitrofurantoin 100 mg capsule 100 mg PO Q12H Rx Instructions: must administer with a meal/food alprazolam 0.5 mg tablet 0.5 mg PO QHS PRN carvedilol 12.5 mg tablet 12.5 mg PO .COMPLEX Rx Instructions: 12.5 mg orally take one tablet QAM 2 tablets QPM; must administer with a meal/food tepczsvtyjxd-bwrysgra-xefdni Tablet 1 tablet PO DAILY cinnamon bark 500 mg capsule 500 mg PO DAILY cyclobenzaprine 5 mg tablet 5 mg PO QHS PRN (Reason: Spasms) fenofibrate nanocrystallized 145 mg tablet 145 mg PO DAILY omega 4-ntx-yvu-fish oil 500-1,000 mg capsule 1 cap PO DAILY metformin 500 mg tablet 1,000 mg PO DAILY pravastatin 20 mg tablet 20 mg PO DAILY furosemide 20 mg Tablet 20 mg PO DAILY cephalexin 500 mg capsule 500 mg PO Q12H Qty: 10 0RF docusate sodium [Colace] 100 mg capsule 100 mg PO BID Qty: 14 0RF Follow-up/Referrals: UNKNOWN,DOCTOR [Primary Care Provider]
--- OUTSIDE RECORDS SUMMARY | 2025-07-14 20:11 | XMS_ITS | Clinical Summary ---
Author Organization 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,non-owned Affiliates and Associated Physician Practices is amultiple site organization consisting of ambulatory clinics and hospital sitesin [place], [place], [place] and [place]. This disclosure is being madepursuant to the Care Everywhere program and may not contain all information available regarding this patient. Last updated 18.[facility] Allergies Active Allergy Reactions Criticality Noted Date [...] (one) tablet by mouth once daily Active [place]-3 Fatty Acids (fish oil) 500 MG capsule [...] 09/06/2015 Type 2 diabetes mellitus without complication Overview (06/24/2025): IMO 06/24/2025 Atherosclerotic heart diseas e of [place] coronary artery without angina pectoris 05/13/2013 Palpitations [...] Comments Blood Pressure 148/62 11/02/2022 9:09 AM ANODISER Pulse 69 11/02/2022 9:09 AM ANODISER Temperature 36.4 C (97.6 F) 11/02/2022 9:09 AM ANODISER Respiratory Rate - - Oxygen Saturation 96% 11/02/2022 9:09 AM ANODISER Inhaled Oxygen Concentration - - Weight 77.7 kg (171 lb 3.2 oz) 11/02/2022 9:09 A M ANODISER Height - - Body Mass Index - - Plan of Treatment Health Maintenance Due Date Last Done Comments BONE DENSITY TESTING 1940 DIABETES-SERUM CREATININE 1960 DTAP/TDAP/TD VACCINES (1 - Tdap) 1961 ZOSTER VACCINE (2 of 3) 09/20/2017 07/26/2017 Respiratory Syncytial Virus (RSV) Vaccine Pt: or over 60 yrs (1 - 1-dose 75+ series) 2017 PNEUMOCOCCAL VACCINE 50+ (2 of 2 - PPSV23, PCV20, or PCV21) 12/27/2020 11/01/2020 DIABETES RETINOPATHY SCREENING 11/02/2022 DIABETES-FOOT EXAM WITH MONOFILAMENT 11/02/2022 DIABETES-HGB A1C 11/02/2022 DEPRESSION SCREENING 09/24/2024 12/01/2022 DIABETES - URINE PROTEIN SCREENING 09/24/2024 MEDICARE AWV CALENDAR YEAR 2024 COVID-19 VACCINE ( - season) 2025 INFLUENZA VACCINE (#1) 2025 2, 06/27/2021, 07/23/2020, Additional history exists HEPATITIS B [...] to complete this topic Insurance Care Teams Needle Felt Making Machine Operator Relationship Specialty Start Date End Date Sam Torres MD [facility] [place] [id number] PCP - General 05/17/22
[2025-07-14 20:30] VITALS: BP 183/77; PULSE 65; RESP 15; O2SAT 100
== END 2025-07-14 22:44 | disposition hospice, home (50) ==
PROVIDERS: Emergency Provider Student in an Organized Health Care Education/Training Program
DX: S06.6XAA Traumatic subarachnoid hemorrhage with loss of consciousness status unknown, initial encounter (principal); G30.9 Alzheimer's disease, unspecified; F01.50 Vascular dementia, unspecified severity, without behavioral disturbance, psychotic disturbance, mood disturbance, and anxiety; I13.0 Hypertensive heart and chronic kidney disease with heart failure and stage 1 through stage 4 chronic kidney disease, or unspecified chronic kidney disease; E11.22 Type 2 diabetes mellitus with diabetic chronic kidney disease; N18.32 Chronic kidney disease, stage 3b; I50.40 Unspecified combined systolic (congestive) and diastolic (congestive) heart failure; E78.5 Hyperlipidemia, unspecified; D50.9 Iron deficiency anemia, unspecified; F41.9 Anxiety disorder, unspecified; Z79.899 Other long term (current) drug therapy; Z79.84 Long term (current) use of oral hypoglycemic drugs; W07.XXXA Fall from chair, initial encounter
CPT/HCPCS: 70450; 72125; 99284